=== PATIENT | male | born 1935 | race Caucasian/White ===

== ENCOUNTER → 2018-04-28 | Outpatient (CLI) | payer OTHER ==
[~2018-04-28] MED LIST: AMLO10TA2 PO; BIOFTAB30 PO; LISI20TA3 PO; METO-478 PO; MISCTAB PO; MISCTAB78 PO; PANT1TAB3 PO; UROZINC PO
--- NOTE | 2018-04-28 12:11 | DIAGNOSTIC IMAGING REPORT ---
CHEST 2 VIEWS ROUTINE CLINICAL HISTORY: PRE OP COMPARISON STUDY: 10/28/2011 FINDINGS: The bones soft tissues and hemidiaphragms are normal. The cardiomediastinal silhouette is normal. The lungs are clear. The pulmonary vasculature is normal. IMPRESSION: No acute process. Small hiatal hernia. The above report was generated using voice recognition software. It may contain grammatical, syntax or spelling errors. Electronically signed by: Edouard Hodges M.D. 04/28/2018 12:10 PM Dictated Date/Time: 04/28/2018 12:07 PM
== END | disposition home or self-care (01) ==
LOC: C.CPL 11:12
PROVIDERS: ATTEND Physician Assistant Medical
DX: Z01.810 Encounter for preprocedural cardiovascular examination (principal); Z01.818 Encounter for other preprocedural examination

== ENCOUNTER 2018-05-07 15:49 | Emergency (ER) | payer OTHER ==
[~2018-05-07] VITALS: Ht 185.4 cm; Wt 95.5 kg
[~2018-05-07 15:49] MED LIST changes: -MISCTAB78 PO; -UROZINC PO
[2018-05-07 16:02] VITALS: TEMP 36.4; Ht 185.4 cm; Wt 95.5 kg
--- NOTE | 2018-05-07 16:38 | EMERGENCY ROOM VISIT NOTE ---
History Report prepared by Scottieibe: Adelaide Montgomery Under the Supervision of: Dr. Gera Lai M.D. First contact with patient: 16:12 Chief Complaint: HYPERTENSION Stated Complaint: HIGH BLOOD PRESSURE History of Present Illness The patient is a 83 year old male who presents to the Emergency Room with complaints of persistent hypertension. He states while he was being treated with radiation today, for a history of metastatic esophageal cancer, his BP was found to be elevated around 200, and his doctor referred him here to the ED. The patient takes 3 daily BP medications and denies missing any recent doses. He denies any recent headache, dizziness, shortness of breath or abdominal pain. He denies eating any salty foods recently. 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 A total of 10 systems reviewed and were otherwise negative. Past Medical & Surgical Medical Problems: (1) HTN (hypertension) Social History Smoking Status: Never Smoker Alcohol Use: occasionally Drug Use: none, other Marital Status: Housing Status: lives alone Occupation Status: retired Current/Historical Medications Scheduled Amlodipine Besylate (Norvasc), 10 MG PO QAM Bioflavonoid Products (Bioflex), 3 TAB PO DAILY Lisinopril (Prinivil), 20 MG PO QAM Metoprolol Succinate (Toprol Xl), 25 MG PO BID Misc Natural Products (Complete Prostate Health), 2 TABS PO DAILY Pantoprazole (Protonix), 40 MG PO QAM Allergies Coded Allergies: No Known Allergies (Verified , 05/07/18) Physical Exam Vital Signs Date Time Temp Pulse Resp B/P (MAP) Pulse Ox O2 Delivery O2 Flow Rate FiO2 05/07/18 18:45 68 18 164/87 96 05/07/18 17:32 74 20 93 Room Air 05/07/18 17:30 148/84 05/07/18 17:27 74 20 95 Room Air 05/07/18 17:09 77 05/07/18 17:09 97 Room Air 05/07/18 17:09 97 Room Air 05/07/18 17:06 77 19 159/103 95 Room Air 05/07/18 16:02 36.4 93 20 198/102 93 Room Air Physical Exam GENERAL: Awake, alert, well-appearing, in no acute distress HENT: Normocephalic, atraumatic. Oropharynx unremarkable. EYES: Normal conjunctiva. Sclera non-icteric. NECK: Supple. No nuchal rigidity. FROM. No JVD. RESPIRATORY: Clear to auscultation. CARDIAC: Regular rate, normal rhythm. Extremities warm and well perfused. Pulses equal. ABDOMEN: Soft, non-distended. No tenderness to palpation. No rebound or guarding. No masses. RECTAL: Deferred. MUSCULOSKELETAL: Chest examination reveals no tenderness. The back is symmetrical on inspection without obvious abnormality. There is no CVA tenderness to palpation. No joint edema. LOWER EXTREMITIES: Calves are equal size bilaterally and non-tender. No edema. No discoloration. NEURO: Normal sensorium. No sensory or motor deficits noted. SKIN: No rash or jaundice noted. Medical Decision & Procedures ER Provider Diagnostic Interpretation: Radiology results as stated below per my review and radiologist interpretation: SINGLE VIEW CHEST CLINICAL HISTORY: Hypertension. FINDINGS: 2 AP, portable, upright chest radiographs are compared to study dated 04/28/2018. The examination is degraded by portable technique and patient rotation. The heart is enlarged and there is atherosclerotic calcification of the thoracic aorta. The pulmonary vasculature is noncongested. There is no airspace consolidation or large pleural effusion. No pneumothorax is seen. The skeletal structures are osteopenic. The bony thorax is grossly intact. Degenerative change and scoliosis are noted in the thoracic spine. IMPRESSION: Cardiomegaly with no acute cardiopulmonary abnormality. Electronically signed by: Kimani Parra M.D. 05/07/2018 5:00 PM Laboratory Results 05/07/18 16:45 Red Blood Count 4.82, Mean Corpuscular Volume 86.7, Mean Corpuscular Hemoglobin 28.0, Mean Corpuscular Hemoglobin Concent 32.3, Mean Platelet Volume 8.6, Neutrophils (%) (Auto) 76.2, Lymphocytes (%) (Auto) 15.9, Monocytes (%) (Auto) 7.4, Eosinophils (%) (Auto) 0.2, Basophils (%) (Auto) 0.2, Neutrophils # (Auto) 6.41, Lymphocytes # (Auto) 1.34, Monocytes # (Auto) 0.62, Eosinophils # (Auto) 0.02, Basophils # (Auto) 0.02 05/07/18 16:45 Test 05/07/18 16:45 05/07/18 17:05 White Blood Count 8.42 K/uL (4.8-10.8) Red Blood Count 4.82 M/uL (4.7-6.1) Hemoglobin 13.5 g/dL (14.0-18.0) Hematocrit 41.8 % (42-52) Mean Corpuscular Volume 86.7 fL (80-100) Mean Corpuscular Hemoglobin 28.0 pg (25-34) Mean Corpuscular Hemoglobin Concent 32.3 g/dl (32-36) Platelet Count 245 K/uL (130-400) Mean Platelet Volume 8.6 fL (7.4-10.4) Neutrophils (%) (Auto) 76.2 % Lymphocytes (%) (Auto) 15.9 % Monocytes (%) (Auto) 7.4 % Eosinophils (%) (Auto) 0.2 % Basophils (%) (Auto) 0.2 % Neutrophils # (Auto) 6.41 K/uL (1.4-6.5) Lymphocytes # (Auto) 1.34 K/uL (1.2-3.4) Monocytes # (Auto) 0.62 K/uL (0.11-0.59) Eosinophils # (Auto) 0.02 K/uL (0-0.5) Basophils # (Auto) 0.02 K/uL (0-0.2) RDW Standard Deviation 43.4 fL (36.4-46.3) RDW Coefficient of Variation 13.6 % (11.5-14.5) Immature Granulocyte % (Auto) 0.1 % Immature Granulocyte # (Auto) 0.01 K/uL (0.00-0.02) Prothrombin Time 11.1 SECONDS (9.0-12.0) Prothromb Time International Ratio 1.1 (0.9-1.1) Activated Partial Thromboplast Time 24.3 SECONDS (21.0-31.0) Partial Thromboplastin Ratio 0.9 Anion Gap 9.0 mmol/L (3-11) Est Creatinine Clear Calc Drug Dose 59.0 ml/min Estimated GFR () 71.8 Estimated GFR (Non- 61.9 BUN/Creatinine Ratio 17.5 (10-20) Calcium Level 9.3 mg/dl (8.5-10.1) Total Bilirubin 0.5 mg/dl (0.2-1) Direct Bilirubin 0.2 mg/dl (0-0.2) Aspartate Amino Transf (AST/SGOT) 14 U/L (15-37) Alanine Aminotransferase (ALT/SGPT) 18 U/L (12-78) Alkaline Phosphatase 86 U/L (45-117) Total Creatine Kinase 71 U/L (39-308) Creatine Kinase MB < 1.0 ng/ml (0.5-3.6) Creatine Kinase MB Ratio (0-3.0) Troponin I < 0.015 ng/ml (0-0.045) Total Protein 7.8 gm/dl (6.4-8.2) Albumin 3.9 gm/dl (3.4-5.0) Lipase 162 U/L (73-393) Thyroid Stimulating Hormone (TSH) 0.813 uIu/ml (0.300-4.500) Urine Color DK YELLOW Urine Appearance CLEAR (CLEAR) Urine pH 6.0 (4.5-7.5) Urine Specific [place] 1.019 (1.000-1.030) Urine Protein NEG (NEG) Urine Glucose (UA) NEG (NEG) Urine Ketones TRACE (NEG) Urine Occult Blood NEG (NEG) Urine Nitrite NEG (NEG) Urine Bilirubin NEG (NEG) Urine Urobilinogen NEG (NEG) Urine Leukocyte Esterase TRACE (NEG) Urine WBC (Auto) 1-5 /hpf (0-5) Urine RBC (Auto) 5-10 /hpf (0-4) Urine Hyaline Casts (Auto) 1-5 /lpf (0-5) Urine Epithelial Cells (Auto) 10-20 /lpf (0-5) Urine Bacteria (Auto) NEG (NEG) Labs reviewed by ED physician. 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 The patient was evaluated in room B8. A complete history and physical examination was performed. 174: I reevaluated the patient. He is feeling well and is ready to go home. I discussed his results and discharge instructions and he verbalized complete understanding and agreement. Medical Decision Differential diagnosis: Etiologies such as benign hypertension, hypertensive emergency, cardiovascular pathology, pheochromocytoma, electrolyte abnormality, renal disease, endorgan damage, as well as others were entertained. This is an 83-year-old male who presents emergency department complaining of hypertension. Despite the hypertension the patient has no physical complaints. He denies any dizziness shortness of breath or headache. He has no evidence of meningitis or encephalitis on examination. The patient was given his evening dose of metoprolol here in the emergency department. I will note without doing anything his blood pressure has fallen significantly and I suspect that the patient is anxious over several tests he was having performed both today and tomorrow. Using shared medical decision making with the patient patient does not wish to start any new medications for his blood pressure he will continue to monitor and follow-up with his primary care physician. Patient was in agreement with the treatment plan. Medication Reconcilliation Current Medication List: was personally reviewed by me Blood Pressure Screening Patient's blood pressure: Elevated blood pressure Blood pressure disposition: Referred to PCP Impression Primary Impression: Hypertension Scribe Attestation The scribe's documentation has been prepared under my direction and personally reviewed by me in its entirety. I confirm that the note above accurately reflects all work, treatment, procedures, and medical decision making performed by me. Departure Information Dispostion Home / Self-Care Referrals Mumtaz Loza MD (PCP) Patient Instructions Hypertension Control, Hypertension Dc, My [facility] Additional Instructions Follow up with Dr Loza's office You were found to have an elevated blood pressure today (>120 sytolic or >90 diastolic). Per medicare guidelines, you need to follow up with this blood pressure screening with your Primary Care Physician (PCP). For a new PCP call [phone]. You have been examined and treated today on an emergency basis only. This is not a substitute for, or an effort to provide, complete comprehensive medical care. It is impossible to recognize and treat all injuries or illnesses in a single emergency department visit. It is therefore important that you follow up closely with Dr Loza. Call as soon as possible for an appointment. Thank you for your time and consideration. I look forward to speaking with you again soon. Please don't hesitate to call us if you have any questions. Problem Qualifiers Primary Impression: Hypertension Hypertension type: unspecified Qualified Codes: I10 - Essential (primary) hypertension
[2018-05-07] MEDS ORDERED: METOPROLOL TARTRATE 25 MG TAB PO STA (16:48)
[2018-05-07 17:00] LABS: BASO % 0.2 %; BASO ABS # 0.02 K/uL (0-0.2); EOS % 0.2 %; EOS ABS # 0.02 K/uL (0-0.5); HEMATOCRIT 41.8 % (42-52); HEMOGLOBIN 13.5 g/dL (14.0-18.0); IG# 0.01 K/uL (0.00-0.02); LYMPH % 15.9 %; LYMPH ABS # 1.34 K/uL (1.2-3.4); MEAN CELL VOLUME 86.7 fL (80-100); MEAN CORPUSCULAR HGB CONC 32.3 g/dl (32-36); MEAN PLATELET VOLUME 8.6 fL (7.4-10.4); MONO % 7.4 %; MONO ABS # 0.62 K/uL (0.11-0.59); NEUT % 76.2 %; NEUT ABS # 6.41 K/uL (1.4-6.5); PLATELET COUNT 245 K/uL (130-400); RED CELL DISTRIBUTION WIDTH CV 13.6 % (11.5-14.5); RED CELL DISTRIBUTION WIDTH SD 43.4 fL (36.4-46.3); WHITE BLOOD COUNT 8.42 K/uL (4.8-10.8)
--- NOTE | 2018-05-07 17:01 | DIAGNOSTIC IMAGING REPORT ---
SINGLE VIEW CHEST CLINICAL HISTORY: Hypertension. FINDINGS: 2 AP, portable, upright chest radiographs are compared to study dated 04/28/2018. The examination is degraded by portable technique and patient rotation. The heart is enlarged and there is atherosclerotic calcification of the thoracic aorta. The pulmonary vasculature is noncongested. There is no airspace consolidation or large pleural effusion. No pneumothorax is seen. The skeletal structures are osteopenic. The bony thorax is grossly intact. Degenerative change and scoliosis are noted in the thoracic spine. IMPRESSION: Cardiomegaly with no acute cardiopulmonary abnormality. Electronically signed by: Kimani Parra M.D. 05/07/2018 5:00 PM Dictated Date/Time: 05/07/2018 4:59 PM
[2018-05-07 17:09] VITALS: O2SAT 97
[2018-05-07 17:10] LABS: INR 1.1 (0.9-1.1); PTT PATIENT 24.3 SECONDS (21.0-31.0)
[2018-05-07 17:32] LABS: ALBUMIN 3.9 gm/dl (3.4-5.0); ALKALINE PHOSPHATASE 86 U/L (45-117); ALT/SGPT 18 U/L (12-78); AST/SGOT 14 U/L (15-37); BLOOD UREA NITROGEN 19 mg/dl (7-18); CALCIUM 9.3 mg/dl (8.5-10.1); CARBON DIOXIDE 27 mmol/L (21-32); CKMB < 1.0 ng/ml (0.5-3.6); CREATININE 1.11 mg/dl (0.60-1.40); GLUCOSE 102 mg/dl (70-99); LIPASE 162 U/L (73-393); POTASSIUM 3.7 mmol/L (3.5-5.1); SODIUM 139 mmol/L (136-145); TOTAL PROTEIN 7.8 gm/dl (6.4-8.2)
[2018-05-07 18:45] VITALS: BP 164/87; PULSE 68; O2SAT 96
== END 2018-05-07 18:45 | disposition home or self-care (01) ==
LOC: C.EDB 15:51
DX: I10 Essential (primary) hypertension (principal); Z79.899 Other long term (current) drug therapy

== ENCOUNTER → 2018-05-08 | Day surgery (SDC) | payer OTHER ==
[2018-04-22 14:32] VITALS: Ht 185.4 cm; Wt 94.5 kg
[~2018-05-08] VITALS: Ht 185.4 cm; Wt 94.5 kg
[~2018-05-08] MED LIST changes: +FENTANYL CITRATE INJ 50 MCG/1 ML 2 ML VIAL ONE; +LACTATED RINGER'S 1000ML 1,000 ML IV SCH; +LIDOCAINE HCL 2% 2 ML VIAL (20MG/ML) ONE; +PROPOFOL IV EMULSION 10 MG/ML 20 ML VIAL ONE
== END | disposition home or self-care (01) ==
LOC: C.ACU 07:57
PROVIDERS: ATTEND Internal Medicine
DX: C15.9 Malignant neoplasm of esophagus, unspecified (principal); Z53.9 Procedure and treatment not carried out, unspecified reason

== ENCOUNTER 2019-05-04 14:01 | Inpatient (IN) ==
--- OUTSIDE RECORDS SUMMARY | 2019-05-04 14:03 | External Medical Summary | Continuity of Care Document ---
:1935 Author Name John Michaud, Provider Address Unavailable Unavailable , Care Team Providers Name Role Phone Unavailable Unavailable Unavailable LEONCIO GROVE Unavailable Unavailable Unavailable Unavailable Unavailable Problems Anemia (285.9) (D64.9) Hypertension (401.9) (I10) Feeling weak (780.79) (R53.1) Tachycardia (785.0) (R00.0) Shortness of breath (786.05) (R06.02) Esophageal cancer (150.9) (C15.9) Allergies and Adverse Reactions No Known Drug Allergies (Allergy) Medications Medications not documented Procedures History of Knee Replacement Status: Comp leted Immunizations Immunizations not documented Plan of Treatment Planned Observations Planned Goals not documented Results No Known Results Results not documented
[2019-05-04] MEDS ORDERED: SODIUM CHLORIDE 0.9% 1000ML 1,000 ML IV SCH (14:15)
[2019-05-04 14:56] LABS: Hematocrit (blood only) 35.5 % (42-52); Hemoglobin 11.7 g/dL (14.0-18.0); Mean Corpuscular Volume 86.2 fL (80-100); Platelet Count 140 K/uL (130-400); RDW Coefficient of Variation 14.9 % (11.5-14.5); RDW Standard Deviation 47.8 fL (36.4-46.3); Red Blood Count 4.12 M/uL (4.7-6.1); White Blood Count 8.24 K/uL (4.8-10.8)
[2019-05-04 14:56] LABS: Base Excess VBG 0.3 mEq/L; HCO3 VBG 23 mmol/L; PCO2 VBG 30 mmHg (38-50); PO2 VBG 23 mmHg; pH VBG 7.49 (7.36-7.41)
--- NOTE | 2019-05-04 14:56 | XRay Report ---
XR chest 1V portable CLINICAL HISTORY: 84 years-old Male presenting with weakness. TECHNIQUE: Portable upright AP view of the chest was obtained. COMPARISON: 05/07/2018. FINDINGS: Even allowing for low lung volumes the cardiac silhouette is enlarged. Mild pulmonary vascular promin ence. Dense opacity in the right mid lung. No pleural effusion or pneumothorax. Scoliosis and degene rative changes of the spine. Upper abdomen normal. IMPRESSION: 1. Right mid lung opacity suspected to localize to the anterior segment of the right upper lobe. Fin dings are evidence of pneumonia. This should be followed to resolution to exclude an underlying lesio n. Electronically signed by: Anival Lechuga M.D. 05/04/2019 2:55 PM
[2019-05-04 14:57] LABS: Oxygen Saturation VBG < 60.0 %
[2019-05-04 15:12] LABS: Albumin Level 3.4 gm/dl (3.4-5.0); BUN Creatinine Ratio 21.4 (10-20); Calcium 9.3 mg/dl (8.5-10.1); Creatinine Clr Calc Pharmacy 43.6 ml/min; Est GFR (African American) 48.8; Est GFR (Non-African American) 42.1; Potassium 3.4 mmol/L (3.5-5.1)
--- NOTE | 2019-05-04 15:17 | CT Scan Report ---
HEAD CT NONCONTRAST CT DOSE: 729.78 mGycm HISTORY: confusion TECHNIQUE: Multiaxial CT images of the head were performed without the use of intravenous contrast. A utomated exposure control was utilized for this study. A dose lowering technique was utilized adheri ng to the principles of ALARA. Comparison: None. Findings: Large fluid level within the right maxillary sinus resulting in near complete opacification . There is also a small fluid level within the right sphenoid sinus. The mastoid air cells are clear. The calvarium and skull base are intact. The ventricles and sulci are within normal limits. There is no mass, hematoma, midline shift, or acute infarct. Impression: No acute intracranial abnormality. Acute right paranasal sinusitis as described above. Electronically signed by: Landon Dan M.D. 05/04/2019 3:16 PM
[2019-05-04 15:23] LABS: Albumin Globulin Ratio 0.8 (0.9-2); Bilirubin,Total 0.7 mg/dl (0.2-1); Globulin 4.2 gm/dl (2.5-4.0); Total Protein 7.6 gm/dl (6.4-8.2); Troponin I 0.04 ng/ml (0-0.045)
[2019-05-04] MEDS ORDERED: SODIUM CHLORIDE 0.9% 1000ML 2,000 ML IV ONE (15:28)
[2019-05-04] MEDS ORDERED: cefTRIAXone SODIUM 2,000 MG/70 ML BAG IV STA (15:28)
--- NOTE | 2019-05-04 15:35 | Emergency Department Note ---
Entered by Marcos Phillips acting as a scribe for Alvaro Rodriguez M.D. History of Present Illness General Chief complaint: Confusion Stated complaint: confusion Time Seen by Provider: 05/04/19 14:02 Source: family and EMS History of Present Illness Provider complaint: Confusion Onset (ago): hour(s) (Just prior to arrival) Location: head Radiation: non-radiation Pain Consistency: + constant Relieved By: + none Exacerbated By: + none Associated symptoms: no chest pain and no headaches The patient is an 84 year old male who presents to the Emergency Room with complaints of constant confusion that was noticed today just prior to arrival, per EMS. EMS notes that the patient was found trying to get into the wrong apartment. Per the patient's sister, the patient is normally confused at baseline, however today's confusion is more severe. The patient was seen by his PCP today and per the patient the visit was normal. The patient also mentioned that he is anxious about his sister in [place]. He currently denies any recent falls or pain at this time including any extremity pain, chest pain, headache, or abdominal pain. The patient has a history of throat and bladder cancer. HPI is limited secondary to patient confusion. Home Medications Home Medications Medication Instructions Recorded Confirmed Type Complete Prostate Health 2 tabs PO DAILY 05/04/19 05/04/19 History amlodipine [Norvasc] 10 mg PO DAILY 05/04/19 05/04/19 History lisinopril 20 mg PO DAILY 05/04/19 05/04/19 History metoprolol succinate [Toprol XL] 25 mg PO BID 05/04/19 05/04/19 History pantoprazole [Protonix] 40 mg PO DAILY 05/04/19 05/04/19 History sertraline [Zoloft] 50 mg PO DAILY 05/04/19 05/04/19 History Allergies Allergy/AdvReac Type Severity Reaction Status Date / Time No Known Allergies Allergy Verified 05/04/19 16:05 Past Med/Surg History Medical History HTN (hypertension) (Chronic) 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 Other (Limited secondary to patient confusion) Physical Exam Vital Signs Vital Signs - 24 hr 05/04/19 14:05 05/04/19 14:09 05/04/19 14:31 Temperature 37.5 C Temperature Source Oral Sepsis Recent Fever Within 48 Hours No Sepsis New/Unexplained Change in Mental Status No Sepsis Action Taken by Nursing No Action Required Pulse Rate 90 100 H Pulse Rate from SpO2 Sensor Respiratory Rate 22 16 Blood Pressure 159/69 H 159/69 H Blood Pressure Mean 99 99 Pulse Oximetry 97 97 Oxygen Delivery Method Room Air Room Air 05/04/19 14:34 05/04/19 15:12 05/04/19 15:13 Temperature Temperature Source Sepsis Recent Fever Within 48 Hours Sepsis New/Unexplained Change in Mental Status Sepsis Action Taken by Nursing Pulse Rate 109 H 99 H Pulse Rate from SpO2 Sensor 95 H 107 H Respiratory Rate 22 19 23 Blood Pressure 130/83 Blood Pressure Mean 98 Pulse Oximetry 96 93 Oxygen Delivery Method GENERAL: Awake, alert to person, mildly anxious-appearing HENT: Normocephalic, atraumatic. EYES: Normal conjunctiva. Sclera non-icteric. PERRL. NECK: Supple. No nuchal rigidity. RESPIRATORY: Clear to auscultation. No wheezes. Normal respiratory effort. CARDIAC: Normal rate. Normal rhythm. Extremities warm and well perfused. GI: Soft, non-distended. No tenderness to palpation. No masses. RECTAL: Deferred. MUSCULOSKELETAL: Atraumatic. Chest examination reveals no tenderness. There is no CVA tenderness to palpation. LOWER EXTREMITIES: Calves are equal size bilaterally and non-tender. No edema NEURO: No sensory or motor deficits noted. No facial droop. Pressured speech. 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 Also stated he sleeps with $180mil of diamonds in his couch. SKIN: Warm and dry. No rash or jaundice noted. Course 1405: Past medical records reviewed. The patient was evaluated in room B07, and a complete history and physical examination were performed. I obtained the patient's medical records which showed at today's doctor visit the patient had a cough and fever. He was also anxious about his sister. He was diagnosed with pneumonia and started on Azithromycin. 1525: I reevaluated the patient and he is resting comfortably in bed. I updated him on the lab and imaging results. We also discussed the treatment plan and he is in agreement. 1535: I spoke to [place]ia Kamara PAC under Dr. Héctor Simon about the patient's case. They will be accepting the patie nt for further evaluation. Consultations Consultation #1: I spoke to [place]ia Kamara PAC under Dr. Héctor Simon about the patient's case. They will be accepting the patient for further evaluation. Time: 15:35 Administered Medications Sodium Chloride (Nss 1000ml) 2,000 mls @ 999 mls/hr IV .Q2H1M ONE Stop: 05/04/19 17:28 Last Admin: 05/04/19 16:22 Dose: 999 mls/hr Documented by: [id number] Discontinued Medications Sodium Chloride (Nss 1000ml) 1,000 mls @ 999 mls/hr IV .Q1H1M SAEID Stop: 05/04/19 15:15 Last Infusion: 05/04/19 16:22 Dose: 0 mls/hr Documented by: [id number] Admin: 05/04/19 15:26 Dose: 999 mls/hr Documented by: [id number] Ceftriaxone Sodium (Rocephin) 2,000 mg in 70 mls @ 140 mls/hr IV NOW STA Stop: 05/04/19 15:57 Last Admin: 05/04/19 16:22 Dose: 140 mls/hr Documented by: [id number] Medical Decision Making Differential Diagnosis Differential diagnoses includes but is not limited to toxic, metabolic, infectious, traumatic, cardiac, neurologic, hematologic, psychiatric and inflammatory etiologies. Medical Records Attestation: I reviewed the patient's medical records. Home Medications Current Medication List: was personally reviewed by me Laboratory Data Attestation: I reviewed the patient's lab results. Result diagrams: 05/04/19 14:41 05/04/19 14:41 Lab Results 05/04/19 05/04/19 05/04/19 Range/Units 14:41 14:41 14:41 WBC 8.24 (4.8-10.8) K/uL RBC 4.12 L (4.7-6.1) M/uL Hgb 11.7 L (14.0-18.0) g/dL Hct 35.5 L (42-52) % MCV 86.2 (80-100) fL MCH 28.4 (25-34) pg MCHC 33.0 (32-36) g/dL RDW Std Deviation 47.8 H (36.4-46.3) fL RDW Coeff of [place]re[place] 14.9 H (11.5-14.5) % Plt Count 140 (130-400) K/uL MPV 9.0 (7.4-10.4) fL Immature Gran % (Auto) 0.1 % Neut % (Auto) 84.1 % Lymph % (Auto) 5.2 % [place] % (Auto) 10.6 % Eos % (Auto) 0.0 % Baso % (Auto) 0.0 % Immature Gran # (Auto) 0.01 (0.00-0.02) K/uL Neut # (Auto) 6.93 H (1.4-6.5) K/uL Lymph # (Auto) 0.43 L (1.2-3.4) K/uL [place] # (Auto) 0.87 H (0.11-0.59) K/uL Eos # (Auto) 0.00 (0-0.5) K/uL Baso # (Auto) 0.00 (0-0.2) K/uL VBG pH (7.36-7.41) VBG pCO2 (38-50) mmHg VBG pO2 mmHg VBG HCO3 mmol/L VBG O2 Saturation % VBG Base Excess mEq/L Barometric Pressure mm/Hg Sodium (136-145) mmol/L Potassium (3.5-5.1) mmol/L Chloride (98-107) mmol/L Carbon Dioxide (21-32) mmol/L Anion Gap (3-11) BUN (7-18) mg/dl Creatinine (0.6-1.4) mg/dl Est Cr Clr Drug Dosing ml/min Est GFR ( Amer) Est GFR (Non-Af Amer) BUN/Creatinine Ratio (10-20) Glucose (70-99) mg/dl Lactate 3.0 H* (0.4-2.0) mmol/L Calcium (8.5-10.1) mg/dl Total Bilirubin (0.2-1) mg/dl AST (15-37) U/L ALT (12-78) U/L Alkaline Phosphatase (45-117) U/L Ammonia < 10.0 L (11-32) umol/L Troponin I (0-0.045) ng/ml Total Protein (6.4-8.2) gm/dl Albumin (3.4-5.0) gm/dl Globulin (2.5-4.0) gm/dl Albumin/Globulin Ratio (0.9-2) TSH (0.300-4.500) uIu/ml 05/04/19 05/04/19 Range/Units 14:41 14:42 WBC (4.8-10.8) K/uL RBC (4.7-6.1) M/uL Hgb (14.0-18.0) g/dL Hct (42-52) % MCV (80-100) fL MCH (25-34) pg MCHC (32-36) g/dL RDW Std Deviation (36.4-46.3) fL RDW Coeff of [place]re[place] (11.5-14.5) % Plt Count (130-400) K/uL MPV (7.4-10.4) fL Immature Gran % (Auto) % Neut % (Auto) % Lymph % (Auto) % [place] % (Auto) % Eos % (Auto) % Baso % (Auto) % Immature Gran # (Auto) (0.00-0.02) K/uL Neut # (Auto) (1.4-6.5) K/uL Lymph # (Auto) (1.2-3.4) K/uL [place] # (Auto) (0.11-0.59) K/uL Eos # (Auto) (0-0.5) K/uL Baso # (Auto) (0-0.2) K/uL VBG pH 7.49 H (7.36-7.41) VBG pCO2 30 L (38-50) mmHg VBG pO2 23 mmHg VBG HCO3 23 mmol/L VBG O2 Saturation < 60.0 % VBG Base Excess 0.3 mEq/L Barometric Pressure 727.5 mm/Hg Sodium 134 L (136-145) mmol/L Potassium 3.4 L (3.5-5.1) mmol/L Chloride 100 (98-107) mmol/L Carbon Dioxide 23 (21-32) mmol/L Anion Gap 11.0 (3-11) BUN 33 H (7-18) mg/dl Creatinine 1.52 H (0.6-1.4) mg/dl Est Cr Clr Drug Dosing 43.6 ml/min Est GFR ( Amer) 48.8 Est GFR (Non-Af Amer) 42.1 BUN/Creatinine Ratio 21.4 H (10-20) Glucose 138 H (70-99) mg/dl Lactate (0.4-2.0) mmol/L Calcium 9.3 (8.5-10.1) mg/dl Total Bilirubin 0.7 (0.2-1) mg/dl AST 65 H (15-37) U/L ALT 40 (12-78) U/L Alkaline Phosphatase 79 (45-117) U/L Ammonia (11-32) umol/L Troponin I 0.040 (0-0.045) ng/ml Total Protein 7.6 (6.4-8.2) gm/dl Albumin 3.4 (3.4-5.0) gm/dl Globulin 4.2 H (2.5-4.0) gm/dl Albumin/Globulin Ratio 0.8 L (0.9-2) TSH 0.701 (0.300-4.500) uIu/ml Imaging Data Radiologist's Impression: Radiology results as stated below per my review and the radiologist's interpretation: XR chest 1V portable CLINICAL HISTORY: 84 years-old Male presenting with weakness. TECHNIQUE: Portable upright AP view of the chest was obtained. COMPARISON: 05/07/2018. FINDINGS: Even allowing for low lung volumes the cardiac silhouette is enlarged. Mild pulmonary vascular prominence. Dense opacity in the right mid lung. No pleural effusion or pneumothorax. Scoliosis and degenerative changes of the spine. Upper abdomen normal. IMPRESSION: 1. Right mid lung opacity suspected to localize to the anterior segment of the right upper lobe. Findings are evidence of pneumonia. This should be followed to resolution to exclude an underlying lesion. Electronically signed by: Anival Lechuga M.D. 05/04/2019 2:[address] NONCONTRAST CT DOSE: 729.78 mGycm HISTORY: confusion TECHNIQUE: Multiaxial CT images of the head were performed without the use of intravenous contrast. Automated exposure control was utilized for this study. A dose lowering technique was utilized adhering to the principles of ALARA. Comparison: None. Findings: Large fluid level within the right maxillary sinus resulting in near complete opacification. There is also a small fluid level within the right sphenoid sinus. The mastoid air cells are clear. The calvarium and skull base are intact. The ventricles and sulci are within normal limits. There is no mass, hematoma, midline shift, or acute infarct. Impression: No acute intracranial abnormality. Acute right paranasal sinusitis as described above. Electronically signed by: Landon Dan M.D. 05/04/2019 3:16 PM ECG Data Attestation: I personally reviewed and interpreted this ECG as follows: Indication: altered mental status Rate (beats per minute): 93 Rhythm: sinus with SA Findings: + PAC and + ST depression (Lead 2 and aVF); no PVC and no ST elevation Blood Pressure Blood Pressure Findings: Elevated blood pressure Blood Pressure Disposition: further management by hospitalist ROCK Jones Patient is an 84-year-old gentleman presenting via ambulance today with reports of increasing confusion. Patient has a past medical history UTI, hypertension, Philip's esophagus, as well as Asperger's. Evidently was at the PCPs office this morning. Upon coming back to try to get into a condo unit that was in his and EMS was called. They evidently spoke with his sister via phone and states he is more confused to her today than normal. Patient makes multiple statements that seem grandiose like sleeping with more than $180,000 worth of diamonds on the couch and worldwide travel frequently. Patient knows his name and where he is. Patient is moving all extremities and does not a focal deficits. Denies any complaint of pain or trauma. Office note indicates that he was not feeling so well and thought he might have a cold as well as some cough and fever. Was given azithromycin for possible pneumonia early in laboratory studies appear to still be pending at this time. Did attempt to contact the patient's sister via phone without initial success. Repeat laboratory studies were drawn here as well as a chest x-ray and a CT the head to look for possible explanation for what appears to be some increased confusion today. By way for possible infectious source was metabolic work-up. No involuntary deficits again doubt this represents acute CVA or subarachnoid hemorrhage. CT without acute intercranial abnormality, bleed, or mass notable. EKG here shows believed to be a sinus rhythm but with significant amount of PACs. Questionably some inferior ST depressions in II and aVF but again the patient denies chest pain symptoms. Chest x-ray shows a right midlung opacity in the right upper lobe concerning for pneumonia. There is report of earlier some possible fever and cough do believe this represents pneumonia. This could be contributing factor for his confusion today. Discussed with the patient that given findings and evaluation here I would recommend he stay to monitor for improvement even though is not acutely hypoxic. Does not have acute findings of sepsis at this time and no significant leukocytosis elevation. Negative troponin but detectable. Lactate however is elevated at 3. VBG without significant findings. Ammonia not significantly elevated neither is the TSH. Kidney function appears worse than normal. CT scans shows no acute intracranial pathology although evidence of some right paranasal sinusitis is also noted. Did receive a dose of ceftriaxone and I believe already received azithromycin today. Additionally received IV fluid. Not hypercarbic. Given this discussed with the patient recommendation for admission. He was in agreement. [facility] hospitalist contacted. Impression & Plan Altered mental status, Community acquired pneumonia, JEAN CARLOS (acute kidney injury), Elevated lactic acid level Discharge Plan Visit Data Chief Complaint: Confusion Stated Complaint: confusion ED Provider: Alvaro Rodriguez Discharge Problem: Altered mental status, Community acquired pneumonia, JEAN CARLOS (acute kidney injury), Elevated lactic acid level Patient Disposition: Being Evaluated by Hospitalist Forms Stand Alone Forms: [facility] Run[facility] Prescriptions Prescriptions: No Action lisinopril 20 mg tablet 20 mg PO DAILY RF: 0 amlodipine [Norvasc] 10 mg tablet 10 mg PO DAILY RF: 0 pantoprazole [Protonix] 40 mg tablet,delayed release (DR/EC) 40 mg PO DAILY RF: 0 metoprolol succinate [Toprol XL] 25 mg tablet extended release 24 hr 25 mg PO BID RF: 0 sertraline [Zoloft] 50 mg tablet 50 mg PO DAILY RF: 0 Complete Prostate Health 2 tabs PO DAILY RF: 0 Referrals Referrals: Mumtaz Loza MD [Primary Care Provider] - Discharge Problem: Altered mental status Qualifiers: Altered mental status type: delirium Qualified Code(s): R41.0 - Disorientation, unspecified Community acquired pneumonia Qualifiers: Laterality: right Lung location: upper lobe of lung Qualified Code(s): J18.1 - Lobar pneumonia, unspecified organism The scribe's documentation has been prepared under my direction and personally reviewed by me in its entirety. I confirm that the note above accurately reflects all work, treatment, procedures, and medical decision making performed by me.
[2019-05-04 15:36] LABS: Immature Granulocytes # (auto) 0.01 K/uL (0.00-0.02); Immature Granulocytes % (auto) 0.1 %; Lymphocytes # (auto) 0.43 K/uL (1.2-3.4); Lymphocytes % (auto) 5.2 %; Monocytes # (auto) 0.87 K/uL (0.11-0.59); Monocytes % (auto) 10.6 %; Neutrophils # (auto) 6.93 K/uL (1.4-6.5); Neutrophils % (auto) 84.1 %
--- NOTE | 2019-05-04 16:54 | History & Physical Report ---
Date of Service May 04, 2019 Assessment & Plan (1) Community acquired pneumonia: (2) Elevated lactic acid level: Pt presented to ER with confusion, was found trying to get into apartment that was not his. Pt was seen by PCP this morning for routine appointment and had reported cough and CXR was obtained out patient. In ER pt afebrile, P: 90-99, R: 22, BP: 159/69, 94-97% on RA. WBC: 8, H/H: 11.7/33.5 (baseline Hgb: 13-14), Na: 134, Lactate: 3.0 CXR: right mid lung infiltrate CT HEAD: No acute intracranial abnormality. Acute right paranasal sinusitis. Meets SIRS criteria -In ER given Rocephin 2Gm IV, 2L NSS -Pending blood cultures -MRSA screen -Trend lactate -Zosyn -Duoneb -Aspiration precautions -CBC, BMP in am (3) Metabolic encephalopathy: Acute confusion Pneumonia. R/O UTI CT head: No acute intracranial abnormality -Neuro checks -pending UA (4) JEAN CARLOS (acute kidney injury): Cr: 1.5. 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 Spoke with pt's sister - Yvette who wishes Full code Pt's sister -Yvette Bingham would like update. . (she lives in [place]) Follows with Dr Loza for routine care Pt was seen and care coordinated with Dr Anaya. See addendum History of Present Illness Chief Complaint: Confusion Primary Care Provider: Mumtaz Loza MD Pt is 84 y/o M with PMH,HTN, GERD, anxiety Philip's esophagus, h/o esophageal cancer S/P chemo and radiation, presented to ER for confusion.History obtained from outpatient records, limited history obtained from patient secondary to his confusion. Patient was seen at PCPs office this morning and had reported cough for couple of days. Today he had chest x-ray in clinic concerning for pneumonia to right lung and clinic has been trying to get in contact with pt to inform of results and that Rx was sent to pharmacy. Patient was brought to ER as he was found trying to get into an apartment that was not his. Upon ER arrival patient was noted to be confused otherwise is in no acute distress.Currently patient is denying any complaints and denies any shortness of breath chest pain. He reports at this time that he thinks he has had a cough for approximately 20 minutes. Pt alert to person and states that he used to work for [employer] and reports that he has traveled to [place]. Pt easily distracted and talks off subject. Was able to speak with patient's Sister Yvette who resides in [place]. She states that talked to pt this morning when police were with him and that he was very confused. She just talked to him on the phone while he was in ER and states pt more oriented when she talked to him and seems like he is aware of himself now and that he was not earlier. Pt's sister confirms that pt is retired and worked for [employer]. She reports pt without dx dementia and has no history of confusion in the past. Does report pt with hx UTI in past. Further ROS unattainable at this time secondary to pt's confusion. Allergies Allergy/AdvReac Type Severity Reaction Status Date / Time No Known Allergies Allergy Verified 05/04/19 16:05 Home Medications Home Medications Medication Instructions Recorded Confirmed Type Complete Prostate Health 2 tabs PO DAILY 05/04/19 05/04/19 History amlodipine [Norvasc] 10 mg PO DAILY 05/04/19 05/04/19 History lisinopril 20 mg PO DAILY 05/04/19 05/04/19 History metoprolol succinate [Toprol XL] 25 mg PO BID 05/04/19 05/04/19 History pantoprazole [Protonix] 40 mg PO DAILY 05/04/19 05/04/19 History sertraline [Zoloft] 50 mg PO DAILY 05/04/19 05/04/19 History Past Med/Surg History Medical History Anxiety (Chronic) Barretts esophagus (Chronic) HTN (hypertension) (Chronic) 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 March 18, 2018 Adenocarcinoma Status post PET/CT March 14, 2018 FDG avidity in the distal esophagus Plan for EUS May 08, 2018" Surgical History History of arthroplasty of knee (Chronic) History of cystoscopy (Chronic) History of cataract surgery (Chronic) Family History Other Hypertension Stroke Social History Current Living Situation: Alone Feels Safe at Home: Yes Smoking Status: Never smoker Hx Alcohol Use: No Hx Substance Use: No Review of Systems Review of Systems: Unobtainable due to cognitive status Physical Exam Physical Exam: General: no acute distress, however anxious WDWN Head: normocephalic, atraumatic Eyes: PERRL, EOM's intact, conjunctiva non-injected, anicteric ENT: normal inspection external ears, nose, pharynx without edema or erythema, mucous membranes moist Neck: supple, trachea midline Lungs: no respiratory distress, diminished right lung, otherwise clear CV: RRR, no murmur, no JVD, no pretibial edema; chest: scar noted to right upper chest Abd: normal BS, soft, non-tender Ext: no cyanosis, no calf tenderness Neuro: Alert, oriented to person, easily distracted and talks off subject, anxious appearing Skin: warm, dry Results & Data Vital Signs (Past 12 Hours) Vital Signs Temp Pulse Resp BP Pulse Ox 05/04/19 15:13 99 H 23 93 05/04/19 15:12 19 130/83 96 05/04/19 14:34 109 H 22 05/04/19 14:31 97 05/04/19 14:09 37.5 C 100 H 16 159/69 H 97 05/04/19 14:05 90 22 159/69 H Laboratory Results Short CBC 05/04/19 Range/Units 14:41 WBC 8.24 (4.8-10.8) K/uL Hgb 11.7 L (14.0-18.0) g/dL Hct 35.5 L (42-52) % Plt Count 140 (130-400) K/uL BMP 05/04/19 14:41 Sodium 134 L Potassium 3.4 L Chloride 100 Carbon Dioxide 23 BUN 33 H Creatinine 1.52 H Glucose 138 H Calcium 9.3 Cardiac Enzymes 05/04/19 Range/Units 14:41 Troponin I 0.040 (0-0.045) ng/ml Liver Function 05/04/19 Range/Units 14:41 Total Bilirubin 0.7 (0.2-1) mg/dl AST 65 H (15-37) U/L ALT 40 (12-78) U/L Alkaline Phosphatase 79 (45-117) U/L Albumin 3.4 (3.4-5.0) gm/dl Diagnostic Findings CXR: IMPRESSION: 1. Right mid lung opacity suspected to localize to the anterior segment of the right upper lobe. Findings are evidence of pneumonia. This should be followed to resolution to exclude an underlying lesion. CT HEAD: Impression: No acute intracranial abnormality. Acute right paranasal sinusitis as described above. Supervising Physician Co-Signing Physician Notes Patient is an 84 yr male with history of esophageal cancer, hypertension and other problems presents with confusion. Patient was seen by his PCP today and was diagnosed to have pneumonia. History is unreliable because of patient's mental status. He admits to having cough. He denies any chest pain, shortness of breath. CT had suggestive of acute right paranasal sinusitis. Chest x-ray suggestive of right midlung infiltrate. Lactate elevated at 3.0. Labs also suggestive of JEAN CARLOS creatinine elevated at 1.5. On exam patient is moderately built and nourished, no apparent distress, normocephalic atraumatic, lungs are clear to auscultation, decreased breath sounds on right side, S1-S2, no murmur, no pedal edema, abdomen soft nontender, grossly nonfocal neurological deficits. Patient is admitted for management of acute metabolic encephalopathy, sepsis secondary to community-acquired pneumonia. We will give IV fluids, IV Zosyn. Check MRSA screen. Blood cultures obtained. Aspiration precautions. Continue neuro checks. UA currently pending. Monitor renal function, hold lisinopril for now. Replace potassium supplements. I personally reviewed the record. Patient is interviewed and examined at bedside. Patient's care is coordinated with Albania Johnson PA-C. Please refer to the documentation above for details of patient's presentation and for discussion of other issues. (1) Community acquired pneumonia Laterality: right Lung location: upper lobe of lung Qualified Code(s): J18.1 - Lobar pneumonia, unspecified organism
[2019-05-04] MEDS ORDERED: POTASSIUM CHLORIDE 20 MEQ TABCR PO STA (17:54)
[2019-05-04] MEDS ORDERED: ACETAMINOPHEN 325 MG TAB PO PRN (17:54)
[2019-05-04] MEDS ORDERED: AZITHROMYCIN 250 MG TAB PO ONE (17:54)
[2019-05-04] MEDS ORDERED: PIPERACILL/TAZOBAC CONSULT ACTIVE PRN (18:00)
[2019-05-04 18:10] LABS: Magnesium 2.1 mg/dl (1.8-2.4)
[2019-05-04] MEDS ORDERED: PIPERACILLIN/TAZOBACTAM 3.375 GM in DEXTROSE 5% 100 ML IV ONE (18:15)
[2019-05-04] MEDS: SODIUM CHLORIDE 0.9% 1000ML 1,000 ML IV SCH (18:19)
[2019-05-04 18:41] LABS: INR 1.3 (0.9-1.1); Prothrombin Time 12.7 Seconds (9.0-12.0)
[2019-05-04] MEDS: ALBUT/IPRATROP 3MG/0.5MG NEB 3 ML VIAL NEB SCH (19:24)
[2019-05-04 20:28] LABS: Appearance Urine Clear (Clear); Bacteria Urine Automated Negative (Negative); Bilirubin Urine Negative (Negative); Blood Urine 3+ (Negative); Color Urine Dark Yellow; Glucose Urine UA Negative (Negative); Ketones Urine Trace (Negative); Leukocyte Esterase Urine Negative (Negative); Nitrite Urine Negative (Negative); Protein Urine 2+ (Negative); Specific Gravity Urine 1.022 (1.000-1.030); Urobilinogen Urine Negative (Negative); pH Urine 5.5 (4.5-7.5)
[2019-05-04 20:45] LABS: Amphetamines+Metham, Urine Neg (Neg); Barbiturates, Urine Neg (Neg); Benzodiazepine, Urine Neg (Neg); Cocaine, Urine Neg (Neg); MDMA (Ecstacy), Urine Neg (Neg); Methadone, Urine Neg (Neg); Opiate, Urine Neg (Neg); Phencyclidine, Urine Neg (Neg)
[2019-05-04] MEDS: HEPARIN SOD 5,000 UNIT/0.5 ML VIAL SQ SCH (21:17)
[2019-05-04] MEDS: METOPROLOL SUCC 25MG EXT REL TAB PO SCH (21:17)
[2019-05-04] MEDS: PIPERACILLIN/TAZOBACTAM 3.375 GM in DEXTROSE 5% 100 ML IV SCH (23:20)
[2019-05-05] MEDS: HEPARIN SOD 5,000 UNIT/0.5 ML VIAL SQ SCH ×3 (06:11→20:36)
[2019-05-05 06:28] LABS: Hematocrit (blood only) 30.2 % (42-52); Immature Granulocytes # (auto) 0.01 K/uL (0.00-0.02); Immature Granulocytes % (auto) 0.2 %; Lymphocytes # (auto) 0.64 K/uL (1.2-3.4); Lymphocytes % (auto) 9.8 %; Mean Corpuscular Hgb Conc 33.1 g/dL (32-36); Mean Corpuscular Volume 87.5 fL (80-100); Monocytes # (auto) 0.73 K/uL (0.11-0.59); Monocytes % (auto) 11.2 %; Neutrophils # (auto) 5.13 K/uL (1.4-6.5); Neutrophils % (auto) 78.8 %; Platelet Count 122 K/uL (130-400); RDW Coefficient of Variation 15.1 % (11.5-14.5); RDW Standard Deviation 48.6 fL (36.4-46.3); Red Blood Count 3.45 M/uL (4.7-6.1); White Blood Count 6.51 K/uL (4.8-10.8)
[2019-05-05] MEDS: ALBUT/IPRATROP 3MG/0.5MG NEB 3 ML VIAL NEB SCH ×4 (06:55→19:01)
[2019-05-05 06:56] LABS: BUN Creatinine Ratio 25.1 (10-20); Calcium 8.1 mg/dl (8.5-10.1); Creatinine Clr Calc Pharmacy 60.7 ml/min; Est GFR (African American) 72.9; Est GFR (Non-African American) 62.9; Magnesium 1.8 mg/dl (1.8-2.4); Potassium 3.5 mmol/L (3.5-5.1)
[2019-05-05] MEDS: SODIUM CHLORIDE 0.9% 1000ML 1,000 ML IV SCH (07:17)
[2019-05-05] MEDS: PIPERACILLIN/TAZOBACTAM 3.375 GM in DEXTROSE 5% 100 ML IV SCH ×2 (07:18→17:37)
[2019-05-05] MEDS: METOPROLOL SUCC 25MG EXT REL TAB PO SCH ×2 (07:18→20:38)
[2019-05-05] MEDS: SERTRALINE HCL 50 MG TABLET PO SCH (07:18)
[2019-05-05] MEDS: PANTOprazole 40 MG TAB PO SCH (07:18)
[2019-05-05] MEDS: AMLODIPINE BESYLATE 5 MG TAB PO SCH (07:18)
--- NOTE | 2019-05-05 09:17 | Hospitalist Progress Note ---
Date of Service May 05, 2019 Assessment & Plan (1) Community acquired pneumonia: Right midlung opacity suspected of pneumonia Has been on intravenous Zosyn Received 1 dose of azithromycin for atypical coverage Will start doxycycline and continue Zosyn for now White cell count has been improving (2) Elevated lactic acid level: Meets SIRS criteria for but does not have any sepsis CXR: right mid lung infiltrate CT HEAD: No acute intracranial abnormality. Acute right paranasal sinusitis. Repeat lactate improved to 2.3 from 2.6 Await blood culture (3) Metabolic encephalopathy: Acute confusion Likely secondary to acute sinusitis and pneumonia. Doubt any UTI CT head: No acute intracranial abnormality No change in acute confusion Will observe (4) JEAN CARLOS (acute kidney injury): Cr: 1.5. 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 Spoke with pt's sister - Yevtte who wishes Full code Pt's sister -Yvette Bingham would like update. . (she lives in [place]) Follows with Dr Loza for routine care (10) Acute maxillary antritis: Noted to have right-sided paranasal sinus opacity Zosyn plus doxy will cover appropriately Subjective 05/05 The patient was seen and examined in medical telemetry unit He remains confused Does not have any acute distress and denies any chest pain and/or shortness of breath, no abdominal pain nausea and or vomiting Did not have any fever and/or chills Review of Systems Review of Systems: All systems reviewed and are unremarkable except as noted below Neurologic: + confusion (Remains acutely confused) Physical Exam Physical Exam: No apparent distress but acutely confused Constitutional: well developed, well nourished and + ill appearing Eyes: PERRL, conjunctivae normal, anicteric sclerae ENMT: external ear and nose normal, oropharynx normal Neck: trachea midline, no thyromegaly Respiratory: normal respiratory effort; no respiratory distress Auscultation: lungs clear to auscultation bilaterally Cardiovascular: Rate/Rhythm: regular rate and regular rhythm Heart Sounds: no murmur Gastrointestinal (Abdomen): Inspection/Auscultation: abdomen normal to inspection and normal bowel sounds Percussion/Palpation: abdomen soft Neurologic: moves all extremities Results & Data Vital Signs (Past 12 Hours) Vital Signs Temp Pulse Pulse Resp BP BP Pulse Ox 05/05/19 06:58 90 20 90 05/05/19 06:57 36.8 C 91 H 20 123/62 92 05/05/19 04:00 37.3 C 99 H 20 127/76 91 05/05/19 00:45 91 H 05/04/19 23:12 36.7 C 102 H 20 136/60 94 05/04/19 22:37 113 H Laboratory Results Short CBC 05/04/19 05/05/19 Range/Units 14:41 06:00 WBC 8.24 6.51 (4.8-10.8) K/uL Hgb 11.7 L 10.0 L (14.0-18.0) g/dL Hct 35.5 L 30.2 L (42-52) % Plt Count 140 122 L (130-400) K/uL BMP 05/04/19 05/05/19 14:41 06:00 Sodium 134 L 138 Potassium 3.4 L 3.5 Chloride 100 109 H Carbon Dioxide 23 23 BUN 33 H 27 H Creatinine 1.52 H 1.09 Glucose 138 H 90 Calcium 9.3 8.1 L Cardiac Enzymes 05/04/19 Range/Units 14:41 Troponin I 0.040 (0-0.045) ng/ml Liver Function 05/04/19 Range/Units 14:41 Total Bilirubin 0.7 (0.2-1) mg/dl AST 65 H (15-37) U/L ALT 40 (12-78) U/L Alkaline Phosphatase 79 (45-117) U/L Albumin 3.4 (3.4-5.0) gm/dl Urine 05/04/19 Range/Units 20:15 Urine Color Dark Yellow Urine Appearance Clear (Clear) Urine pH 5.5 (4.5-7.5) Ur Specific [place] 1.022 (1.000-1.030) Urine Protein 2+ H (Negative) Urine Glucose (UA) Negative (Negative) Medications Administered Current Inpatient Medications Acetaminophen (Tylenol) 650 mg PO Q4H PRN PRN Reason: Pain or Fever Stop: 06/03/19 17:53 Albuterol (Duoneb) 3 ml NEB QIDR [facility] Stop: 06/03/19 19:59 Last Admin: 05/05/19 11:16 Dose: 3 ml Documented by: Amlodipine Besylate (Norvasc) 10 mg PO DAILY [facility] Stop: 06/04/19 08:59 Last Admin: 05/05/19 07:18 Dose: 10 mg Documented by: Heparin Sodium (Porcine) (Heparin Sodium (Porcine)) 5,000 units SQ Q8 [facility] Stop: 06/03/19 21:59 Last Admin: 05/05/19 06:11 Dose: 5,000 units Documented by: Sodium Chloride (Nss 1000ml) 1,000 mls @ 80 mls/hr IV .[id number] [facility] Stop: 05/05/19 18:59 Last Admin: 05/05/19 07:17 Dose: 80 mls/hr Documented by: Piperacillin Sod/Tazobactam (Sod 3.375 gm/ Dextrose) 115 mls @ 28.75 mls/hr IV Q8H [facility]; Protocol Stop: 05/11/19 00:00 Last Infusion: 05/05/19 11:40 Dose: Infused Documented by: Metoprolol Succinate (Toprol Xl) 25 mg PO BID [facility] Stop: 06/03/19 20:59 Last Admin: 05/05/19 07:18 Dose: 25 mg Documented by: Miscellaneous Information (Consult) 1 ea N/A UD PRN PRN Reason: Consult Stop: 06/03/19 17:59 Pantoprazole Sodium (Protonix) 40 mg PO DAILY [facility] Stop: 06/04/19 08:59 Last Admin: 05/05/19 07:18 Dose: 40 mg Documented by: Sertraline HCl (Zoloft) 50 mg PO DAILY [facility] Stop: 06/04/19 08:59 Last Admin: 05/05/19 07:18 Dose: 50 mg Documented by: (1) Community acquired pneumonia Laterality: right Lung location: upper lobe of lung Qualified Code(s): J18.1 - Lobar pneumonia, unspecified organism
[2019-05-05] MEDS ORDERED: LOPERAMIDE HCL 2 MG CAP PO STA (22:54)
[2019-05-06] MEDS: PIPERACILLIN/TAZOBACTAM 3.375 GM in DEXTROSE 5% 100 ML IV SCH ×4 (00:04→23:45)
[2019-05-06] MEDS ORDERED: ALBUT/IPRATROP 3MG/0.5MG NEB 3 ML VIAL NEB PRN (05:54)
[2019-05-06] MEDS ORDERED: methylPREDNISolone 125 MG/2 ML VIAL IV STA (05:55)
[2019-05-06] MEDS ORDERED: ALBUT/IPRATROP 3MG/0.5MG NEB 3 ML VIAL NEB STA (05:59)
[2019-05-06] MEDS ORDERED: ACETAMINOPHEN 65 ML IV PRN (06:00)
[2019-05-06] MEDS ORDERED: methylPREDNISolone 60 MG in SYRINGE 0 ML IV ONE (06:15)
[2019-05-06] MEDS: HEPARIN SOD 5,000 UNIT/0.5 ML VIAL SQ SCH ×3 (06:57→21:01)
--- NOTE | 2019-05-06 07:12 | XRay Report ---
XR chest 1V portable CLINICAL HISTORY: Shortness of breath. COMPARISON STUDY: Chest radiograph May 04, 2019. FINDINGS: Dense right upper lobe consolidation has progressed. Right lower lung consolidation has als o progressed. There is mild left basilar opacity. There is no pneumothorax or pleural effusion. No ca vitation is identified. Cardiomediastinal silhouette is stable. Scoliosis of the thoracolumbar spine is incidentally noted. IMPRESSION: Progression of dense right upper lobe consolidation and right basilar consolidation which suggests mu ltifocal pneumonia. Mild left lower lung airspace opacity. Radiographic follow-up to ensure resolutio n is recommended. Electronically signed by: Roberto Carlos Ji M.D. 05/06/2019 7:10 AM
[2019-05-06] MEDS: ALBUT/IPRATROP 3MG/0.5MG NEB 3 ML VIAL NEB SCH ×4 (07:17→19:19)
[2019-05-06 07:32] LABS: Albumin Level 2.4 gm/dl (3.4-5.0); Calcium 8.1 mg/dl (8.5-10.1); Creatinine Clr Calc Pharmacy 71.2 ml/min; Est GFR (African American) 88.3; Est GFR (Non-African American) 76.2; Magnesium 2.1 mg/dl (1.8-2.4); Potassium 3.2 mmol/L (3.5-5.1)
[2019-05-06] MEDS: AMLODIPINE BESYLATE 5 MG TAB PO SCH (07:39)
[2019-05-06] MEDS: METOPROLOL SUCC 25MG EXT REL TAB PO SCH ×2 (07:39→21:01)
[2019-05-06] MEDS: SERTRALINE HCL 50 MG TABLET PO SCH (07:39)
[2019-05-06] MEDS: PANTOprazole 40 MG TAB PO SCH (07:40)
[2019-05-06 07:48] LABS: Albumin Globulin Ratio 0.7 (0.9-2); Bilirubin,Total 0.6 mg/dl (0.2-1); Globulin 3.4 gm/dl (2.5-4.0); Hematocrit (blood only) 28.9 % (42-52); Hemoglobin 9.6 g/dL (14.0-18.0); Immature Granulocytes # (auto) 0.01 K/uL (0.00-0.02); Immature Granulocytes % (auto) 0.2 %; Lymphocytes # (auto) 0.59 K/uL (1.2-3.4); Lymphocytes % (auto) 10.6 %; Mean Corpuscular Hgb Conc 33.2 g/dL (32-36); Mean Corpuscular Volume 87.6 fL (80-100); Mean Platelet Volume 9.1 fL (7.4-10.4); Monocytes # (auto) 0.44 K/uL (0.11-0.59); Monocytes % (auto) 7.9 %; Neutrophils # (auto) 4.51 K/uL (1.4-6.5); Neutrophils % (auto) 81.3 %; Phosphorus 2.1 mg/dl (2.5-4.9); Platelet Count 129 K/uL (130-400); RDW Coefficient of Variation 15.1 % (11.5-14.5); RDW Standard Deviation 48.8 fL (36.4-46.3); Total Protein 5.8 gm/dl (6.4-8.2); White Blood Count 5.55 K/uL (4.8-10.8)
[2019-05-06] MEDS ORDERED: VANCOMYCIN CONSULT ACTIVE PRN (08:21)
[2019-05-06] MEDS ORDERED: VANCOMYCIN HCL 1,000 MG/270 ML BAG IV STA (08:21)
[2019-05-06] MEDS ORDERED: VANCOMYCIN HCL 2,000 MG in SODIUM CHLORIDE 0.9% 500 ML IV ONE (09:00)
[2019-05-06] MEDS ORDERED: POTASSIUM CHLORIDE 20 MEQ TABCR PO STA (09:20)
--- NOTE | 2019-05-06 09:29 | Pharmacy Report ---
Pharmacy Abx Initial Consult - Date of Service May 06, 2019 - Pharmacy Dosing Scope Date of Consult: 05/06/19 Consultation requested by: Dr. Hawkins Pharmacy is consulted to initiate Vancomycin IV dosing therapy, order appropriate labs and adjust drug dose/frequency. - Subjective The patient is a 84 year old M admitted on 05/04/19 16:27 with CAP on IV Zosyn, MRSA nasal swab negative, but CXR has worsened and pt febrile today. Starting IV Vancomycin. - Objective Height: 6 ft 2 in Weight: 90.7 kg Vital Signs (Past 12hrs): Vital Signs Temp Pulse Pulse Resp BP BP Pulse Ox 05/06/19 07:19 81 18 95 05/06/19 07:03 36.8 C 84 20 119/65 98 05/06/19 06:35 24 99 05/06/19 05:45 39.4 C H 88 44 H 127/69 75 L 05/06/19 00:54 87 05/05/19 22:20 36.7 C 84 20 122/65 92 Lab Results (24hrs): Laboratory Tests (24 Hours) 05/06/19 05/06/19 05/05/19 06:49 06:49 06:00 WBC 5.55 RBC 3.30 L 3.45 L Hgb 9.6 L 10.0 L Hct 28.9 L 30.2 L MCV 87.6 87.5 MCH 29.1 29.0 MCHC 33.2 33.1 RDW Std Deviation 48.8 H 48.6 H RDW Coeff of [place] 15.1 H 15.1 H Plt Count 129 L 122 L MPV 9.1 9.0 Immature Gran % (Auto) 0.2 0.2 Neut % (Auto) 81.3 78.8 Lymph % (Auto) 10.6 9.8 [place] % (Auto) 7.9 11.2 Eos % (Auto) 0.0 0.0 Baso % (Auto) 0.0 0.0 Immature Gran # (Auto) 0.01 0.01 Neut # (Auto) 4.51 Lymph # (Auto) 0.59 L 0.64 L [place] # (Auto) 0.44 0.73 H Eos # (Auto) 0.00 0.00 Baso # (Auto) 0.00 0.00 PT INR VBG pH VBG pCO2 VBG pO2 VBG HCO3 VBG O2 Saturation VBG Base Excess Barometric Pressure Creatinine 0.93 Est Cr Clr Drug Dosing 71.2 Urine Color Urine Appearance Urine pH Ur Specific [place] Urine Protein Urine Glucose (UA) Urine Ketones Urine Blood Urine Nitrite Urine Bilirubin Urine Urobilinogen Ur Leukocyte Esterase Urine WBC (Auto) Urine RBC (Auto) U Hyaline Cast (Auto) U Epithel Cells (Auto) Urine Bacteria (Auto) 05/04/19 05/04/19 05/04/19 20:15 18:17 14:42 WBC RBC Hgb Hct MCV MCH MCHC RDW Std Deviation RDW Coeff of [place] Plt Count MPV Immature Gran % (Auto) Neut % (Auto) Lymph % (Auto) [place] % (Auto) Eos % (Auto) Baso % (Auto) Immature Gran # (Auto) Neut # (Auto) Lymph # (Auto) [place] # (Auto) Eos # (Auto) Baso # (Auto) PT 12.7 H INR 1.3 H VBG pH 7.49 H VBG pCO2 30 L VBG pO2 23 VBG HCO3 23 VBG O2 Saturation < 60.0 VBG Base Excess 0.3 Barometric Pressure 727.5 Creatinine Est Cr Clr Drug Dosing Urine Color Dark Yellow Urine Appearance Clear Urine pH 5.5 Ur Specific [place] 1.022 Urine Protein 2+ H Urine Glucose (UA) Negative Urine Ketones Trace H Urine Blood 3+ H Urine Nitrite Negative Urine Bilirubin Negative Urine Urobilinogen Negative Ur Leukocyte Esterase Negative Urine WBC (Auto) 1-5 Urine RBC (Auto) 10-30 H U Hyaline Cast (Auto) 1-5 U Epithel Cells (Auto) 10-20 H Urine Bacteria (Auto) Negative 05/04/19 14:41 WBC RBC 4.12 L Hgb 11.7 L Hct 35.5 L MCV 86.2 MCH 28.4 MCHC 33.0 RDW Std Deviation 47.8 H RDW Coeff of [place] 14.9 H Plt Count 140 MPV 9.0 Immature Gran % (Auto) 0.1 Neut % (Auto) 84.1 Lymph % (Auto) 5.2 [place] % (Auto) 10.6 Eos % (Auto) 0.0 Baso % (Auto) 0.0 Immature Gran # (Auto) 0.01 Neut # (Auto) Lymph # (Auto) 0.43 L [place] # (Auto) 0.87 H Eos # (Auto) 0.00 Baso # (Auto) 0.00 PT INR VBG pH VBG pCO2 VBG pO2 VBG HCO3 VBG O2 Saturation VBG Base Excess Barometric Pressure Creatinine Est Cr Clr Drug Dosing Urine Color Urine Appearance Urine pH Ur Specific [place] Urine Protein Urine Glucose (UA) Urine Ketones Urine Blood Urine Nitrite Urine Bilirubin Urine Urobilinogen Ur Leukocyte Esterase Urine WBC (Auto) Urine RBC (Auto) U Hyaline Cast (Auto) U Epithel Cells (Auto) Urine Bacteria (Auto) - Assessment & Plan Assessment 84 year old M admitted with CAP on IV zosyn since 05/04, pneumonia worsening CXR, pt febrile. Starting IV Vancomycin. MRSA nasal swab is negative. Plan IV Vancomycin and Zosyn for treatment of CAP Vancomycin IV * Estimated PK Parameters: Vd 0.7 L/kg, Leon 0.06hr-1, t1/2 11.6hr * Loading dose: 2000 mg (22.2 mg/kg) * Maintenance dose: 1250 mg IV (13.9 mg/kg) every 12 hours * Goal trough level for pneumonia : 15 to 20 mcg/mL * Trough level ordered for 05/07/19 prior to 2000 dose Piperacillin/tazobactam * Day 3 * 3.375 g bolus administered over 30 minutes x1, then 3.375 g IV extended infusion every 8 hours for CrCl greater than 20 mL/min Pharmacy will continue to follow and will adjust dose/frequency as necessary. Thank you.
--- NOTE | 2019-05-06 11:07 | Hospitalist Progress Note ---
Date of Service May 06, 2019 Assessment & Plan (1) Community acquired pneumonia: Right midlung opacity suspected of pneumonia Has been on intravenous Zosyn Received 1 dose of azithromycin for atypical coverage Will start doxycycline and continue Zosyn for now Doxycycline was not started yesterday on 05/05 He has had fever last night Will start vancomycin for broader coverage for the pneumonia We will check MRSA screen (2) Metabolic encephalopathy: Acute confusion Likely secondary to acute sinusitis and pneumonia. Doubt any UTI CT head: No acute intracranial abnormality No change in acute confusio No change of his acute confusion (3) Dysphasia: Seems to have dysarthria/dysphasia Questionable stuttering speech Does not have any other neurological deficit No photophobia and no neck stiffness Will take advice from neurologist for further management of this problem Speech evaluation has been requested (4) Elevated lactic acid level: Meets SIRS criteria for but does not have any sepsis CXR: right mid lung infiltrate CT HEAD: No acute intracranial abnormality. Acute right paranasal sinusitis. Repeat lactate improved to 2.3 from 2.6 Await blood culture-negative (5) JEAN CARLOS (acute kidney injury): Cr: 1.5. 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 Spoke with pt's sister - Yvette who wishes Full code Pt's sister -Yvette Bingham would like update. . (she lives in [place]) Follows with Dr Loza for routine care (11) Acute maxillary antritis: Noted to have right-sided paranasal sinus opacity Zosyn plus doxy will cover appropriately-Doxy was not started He will get vancomycin from today-empiric coverage for about 48 hours Subjective 05/05 The patient was seen and examined in medical telemetry unit He remains confused Does not have any acute distress and denies any chest pain and/or shortness of breath, no abdominal pain nausea and or vomiting Did not have any fever and/or chills 05/06 The patient was seen and examined in medical floor He remains confused but seems to be a little bit better compared with yesterday He has significant dysphasia in the form of stuttering but denies any focal neurological deficit He was noted to have a high fever last night Denies any chest pain, any cough, palpitation, abdominal pain, nausea no vomiting, headache, blurred vision, or any weakness involving any side Review of Systems Review of Systems: All systems reviewed and are unremarkable except as noted below Constitutional: + weakness and + daytime sleepiness Respiratory: no cough and no dyspnea Gastrointestinal: no abdominal pain Musculoskeletal: No acute arthritis in any joints Neurologic: + abnormal speech (Has dysphagia in the form of stuttering speech, no headache and or photophobia and no neck stiffness) and + confusion (Remains acutely confused) Physical Exam Constitutional: well developed, well nourished and + ill appearing Eyes: PERRL, conjunctivae normal, anicteric sclerae ENMT: external ear and nose normal, oropharynx normal Neck: trachea midline, no thyromegaly Respiratory: normal respiratory effort; no respiratory distress Auscultation: lungs clear to auscultation bilaterally Cardiovascular: Rate/Rhythm: regular rate and regular rhythm Heart Sounds: no murmur Gastrointestinal (Abdomen): Inspection/Auscultation: abdomen normal to inspection and normal bowel sounds Percussion/Palpation: abdomen soft Neurologic: moves all extremities Results & Data Vital Signs (Past 12 Hours) Vital Signs Temp Pulse Pulse Resp BP BP Pulse Ox 05/06/19 07:19 81 18 95 05/06/19 07:03 36.8 C 84 20 119/65 98 05/06/19 06:35 24 99 05/06/19 05:45 39.4 C H 88 44 H 127/69 75 L 05/06/19 00:54 87 Laboratory Results Short CBC 05/06/19 Range/Units 06:49 WBC 5.55 (4.8-10.8) K/uL Hgb 9.6 L (14.0-18.0) g/dL Hct 28.9 L (42-52) % Plt Count 129 L (130-400) K/uL BMP 05/06/19 06:49 Sodium 138 Potassium 3.2 L Chloride 109 H Carbon Dioxide 22 BUN 24 H Creatinine 0.93 Glucose 90 Calcium 8.1 L Liver Function 05/06/19 Range/Units 06:49 Total Bilirubin 0.6 (0.2-1) mg/dl AST 119 H (15-37) U/L ALT 65 (12-78) U/L Alkaline Phosphatase 60 (45-117) U/L Albumin 2.4 L (3.4-5.0) gm/dl Medications Administered Current Inpatient Medications Acetaminophen (Tylenol) 650 mg PO Q4H PRN PRN Reason: Pain or Fever Stop: 06/03/19 17:53 Albuterol (Duoneb) 3 ml NEB QIDR [facility] Stop: 06/03/19 19:59 Last Admin: 05/06/19 07:17 Dose: 3 ml Documented by: Albuterol (Duoneb) 3 ml NEB Q4H PRN PRN Reason: Shortness Of Breath Or Wheezing Stop: 06/05/19 05:59 Amlodipine Besylate (Norvasc) 10 mg PO DAILY [facility] Stop: 06/04/19 08:59 Last Admin: 05/06/19 07:39 Dose: 10 mg Documented by: Heparin Sodium (Porcine) (Heparin Sodium (Porcine)) 5,000 units SQ Q8 [facility] Stop: 06/03/19 21:59 Last Admin: 05/06/19 06:57 Dose: 5,000 units Documented by: Piperacillin Sod/Tazobactam (Sod 3.375 gm/ Dextrose) 115 mls @ 28.75 mls/hr IV Q8H [facility]; Protocol Stop: 05/11/19 00:00 Last Admin: 05/06/19 07:39 Dose: 28.8 mls/hr Documented by: Acetaminophen (Ofirmev) 65 mls @ 200 mls/hr IV Q6H PRN PRN Reason: Fever or headache Stop: 06/05/19 05:59 Last Infusion: 05/06/19 06:57 Dose: Infused Documented by: Vancomycin HCl 2,000 mg/ (Sodium Chloride) 540 mls @ 200 mls/hr IV NOW ONE Stop: 05/06/19 11:41 Last Admin: 05/06/19 09:19 Dose: 200 mls/hr Documented by: Vancomycin HCl 1,250 mg/ (Sodium Chloride) 275 mls @ 125 mls/hr IV Q12H [facility] Stop: 05/13/19 19:59 Metoprolol Succinate (Toprol Xl) 25 mg PO BID [facility] Stop: 06/03/19 20:59 Last Admin: 05/06/19 07:39 Dose: 25 mg Documented by: Miscellaneous Information (Consult) 1 ea N/A UD PRN PRN Reason: Consult Stop: 06/03/19 17:59 Miscellaneous Information (Consult) 1 ea N/A UD PRN PRN Reason: Consult Stop: 06/05/19 08:20 Pantoprazole Sodium (Protonix) 40 mg PO DAILY [facility] Stop: 06/04/19 08:59 Last Admin: 05/06/19 07:40 Dose: 40 mg Documented by: Sertraline HCl (Zoloft) 50 mg PO DAILY [facility] Stop: 06/04/19 08:59 Last Admin: 05/06/19 07:39 Dose: 50 mg Documented by: (1) Community acquired pneumonia Laterality: right Lung location: upper lobe of lung Qualified Code(s): J18.1 - Lobar pneumonia, unspecified organism
--- NOTE | 2019-05-06 13:49 | Neurology Consultation ---
Date of Consultation May 06, 2019 Assessment & Plan (1) Metabolic encephalopathy: 1. pneumonia - likely cause of MS changes- not clear what baseline is 2. continue antibiotics Zosyn and Vanco- may need a lung lavage if not clearing 3. MRI brain with and without for further evaluation 4. sister input would be helpful or anyone that is more familiar with him 5. requesting input from PCP 6. further recommendations to follow (2) Altered mental status: Supervising Physician Co-Signing Physician Notes I have seen and discussed above patient with Dr Bao Mckeon. Patient was seen and examined. No family at bedside. Patient in chair and pleasant. Does not appear encephalopathic although at times appears manic and very tangential. He talked at length about radiation in his head and his left ear. He also talk about leaving [place] due to study in [place] and is concern regarding [facility]. 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 Neurology was consulted due to concern for encephalopathy. No collateral currently at bedside so history is limited. On examine patient is awake and alert. He is oriented to the year and place. Disoriented to his age. At times is comprehension is impaired and he is NOT able to repeat. He is oriented from left to right and he can follow a simple 2 part command. He has some word finding difficulty and naming was difficult. Basic math was ok. His speech is clear but at times tremulous. Concentration is very poor. Motor strength is symmetric. Tongue midline. Smile is symmetric. No nystagmus is present. Gait was wide based when he ambulated from rest room. The diagnosis on this patient is not yet certain, although concerning for a receptive aphasia. He does not appear encephalopathic at this time. He was admitted for Sepsis and confusion. CT head was performed and shows no signs of acute intracranial process. Recommend getting an MRI brain w/wo contrast. Unclear if patient is confabulating (misinterrpreted memories) - recommend starting IV thiamine. Please check thiamine prior to administration . History of Present Illness Reason for Consultation: dysphasia and change in MS Requesting Physician: Lani Hawkins MD Attending Physician: Lani Hawkins MD History of Present Illness Hrsavannah is a 84 year old male with PMH,HTN, GERD, anxiety, Philip's esophagus, h/o esophageal cancer S/P chemo and radiation, presented to ER for confusion. He was seen at his PCPs and reported cough for couple of days. He had chest x- ray in clinic concerning for pneumonia to right lung and clinic has been trying to get in contact to inform him of results and to picker / packer a prescription at this pharmacy. He was found trying to get into an apartment that was not his. When he arrived at the ED he was confused. He had a cough for approximately 20 minutes. It is difficulty to keep on subject. His Sister Yvette who resides in [place], said he was confused when the police were called but she thinks he is more oriented now. His sister confirms that he is retired and worked for [employer]. She reports he does not have a diagnosis of dementia and has no history of confusion in the past. Currently is is lying in bed but is hard to stay on task. He responds appropriately to questions but then goes off on a tangential speech. denies CP, SOB, abdominal pain, one sided weakness, numbness tingling, bowel or bladder issues, N, V, fever chills night sweats. Allergies Allergy/AdvReac Type Severity Reaction Status Date / Time No Known Allergies Allergy Verified 05/04/19 16:05 Home Medications Home Medications Medication Instructions Recorded Confirmed Type Complete Prostate Health 2 tabs PO DAILY 05/04/19 05/04/19 History amlodipine [Norvasc] 10 mg PO DAILY 05/04/19 05/04/19 History lisinopril 20 mg PO DAILY 05/04/19 05/04/19 History metoprolol succinate [Toprol XL] 25 mg PO BID 05/04/19 05/04/19 History pantoprazole [Protonix] 40 mg PO DAILY 05/04/19 05/04/19 History sertraline [Zoloft] 50 mg PO DAILY 05/04/19 05/04/19 History Patient History Medical History Anxiety (Chronic) Barretts esophagus (Chronic) HTN (hypertension) (Chronic) 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 March 18, 2018 Adenocarcinoma Status post PET/CT March 14, 2018 FDG avidity in the distal esophagus Plan for EUS May 08, 2018" Surgical History History of arthroplasty of knee (Chronic) History of cystoscopy (Chronic) History of cataract surgery (Chronic) Family History Other Hypertension Stroke Social History Preferred Language: Malay Communication Ability: Impaired Beliefs That Will Affect Care: None Current Living Situation: Alone Other Information That Helps Us Care for You: No Feels Safe at Home: Yes Safety Concerns: Feels Safe At This Time Smoking Status: Never smoker Hx Alcohol Use: No Hx Substance Use: No Physical Exam Physical Exam: Physical Exam: Constitutional: appearance nourished, healthy Ears, Nose, Mouth and Throat: mucous membranes moist, no injection and skin normal, eyes normal Cardiovascular: normal S-1 and S-2 and regular rate and rhythm Respiratory: course Musculoskeletal: no peripheral edema and good distal pulses Skin: no stigmata of neurocutaneous disease noted and normal and intact Eyes: extraocular muscles intact (EOMI) and pupils equal, round and reactive to light (PERRL) NEUROLOGIC EXAMINATION: Mental status: Alert and interactive Oriented to hospital, address, button pen, summer Oriented to person Speech fluent with no evidence of aphasia Cranial Nerves smile eye brow raise symmtric Reflexes: Deep tendon reflexes were symmetrical and graded 2/5. Sensory: light cool touch Coordination: unable to follow commands with finger to nose, squeeze with hands Gait/Stance: Posture normal. sitting up in bed Motor: Negative for pronator drift of out stretched arms with eyes closed. Strength: unable to assess due to patient cooperation. Results & Data Vital Signs (Past 12 Hours) Vital Signs Temp Pulse Resp BP BP Pulse Ox 05/06/19 11:22 36.5 C 81 18 109/72 90 05/06/19 11:15 77 16 91 05/06/19 07:19 81 18 95 05/06/19 07:03 36.8 C 84 20 119/65 98 05/06/19 06:35 24 99 05/06/19 05:45 39.4 C H 88 44 H 127/69 75 L Laboratory Results Abnormal lab results 05/06/19 05/06/19 Range/Units 06:49 06:49 RBC 3.30 L (4.7-6.1) M/uL Hgb 9.6 L (14.0-18.0) g/dL Hct 28.9 L (42-52) % RDW Std Deviation 48.8 H (36.4-46.3) fL RDW Coeff of Bereket 15.1 H (11.5-14.5) % Plt Count 129 L (130-400) K/uL Lymph # (Auto) 0.59 L (1.2-3.4) K/uL Potassium 3.2 L (3.5-5.1) mmol/L Chloride 109 H (98-107) mmol/L BUN 24 H (7-18) mg/dl BUN/Creatinine Ratio 26.0 H (10-20) Calcium 8.1 L (8.5-10.1) mg/dl Phosphorus 2.1 L (2.5-4.9) mg/dl AST 119 H (15-37) U/L Total Protein 5.8 L D (6.4-8.2) gm/dl Albumin 2.4 L (3.4-5.0) gm/dl Albumin/Globulin Ratio 0.7 L (0.9-2) Diagnostic Findings CT head- Large fluid level within the right maxillary sinus resulting in near complete opacification. There is also a small fluid level within the right sphenoid sinus. The mastoid air cells are clear. The calvarium and skull base are intact. The ventricles and sulci are within normal limits. There is no mass, hematoma, midline shift, or acute infarct. CXR-Right mid lung opacity suspected to localize to the anterior segment of the right upper lobe. Findings are evidence of pneumonia. This should be followed to resolution to exclude an underlying lesion. 05/04/2019 CXR -progression of dense right upper lobe consolidation and right basilar consolidation which suggests multifocal pneumonia. Mild left lower lung airspace opacity. Radiographic follow-up to ensure resolution is recommended. 05/06/2019 (1) Altered mental status Altered mental status type: delirium Qualified Code(s): R41.0 - Disorientation, unspecified
[2019-05-06] MEDS: VANCOMYCIN HCL 1,250 MG in SODIUM CHLORIDE 0.9% 250 ML IV SCH (21:00)
[2019-05-06] MEDS ORDERED: FAMOTIDINE 20 MG in SYRINGE 3 ML IV ONE (23:10)
[2019-05-07] MEDS: HEPARIN SOD 5,000 UNIT/0.5 ML VIAL SQ SCH ×3 (06:16→21:23)
[2019-05-07 06:48] LABS: Eosinophils # (auto) 0.01 K/uL (0-0.5); Eosinophils % (auto) 0.1 %; Hematocrit (blood only) 30.9 % (42-52); Hemoglobin 10.5 g/dL (14.0-18.0); Immature Granulocytes # (auto) 0.02 K/uL (0.00-0.02); Immature Granulocytes % (auto) 0.2 %; Lymphocytes # (auto) 0.44 K/uL (1.2-3.4); Mean Corpuscular Volume 85.6 fL (80-100); Mean Platelet Volume 9.3 fL (7.4-10.4); Monocytes % (auto) 4.5 %; Neutrophils # (auto) 7.96 K/uL (1.4-6.5); Neutrophils % (auto) 90.2 %; Platelet Count 168 K/uL (130-400); RDW Coefficient of Variation 14.9 % (11.5-14.5); RDW Standard Deviation 46.9 fL (36.4-46.3); Red Blood Count 3.61 M/uL (4.7-6.1); White Blood Count 8.83 K/uL (4.8-10.8)
[2019-05-07] MEDS: PANTOprazole 40 MG TAB PO SCH (07:13)
[2019-05-07] MEDS: AMLODIPINE BESYLATE 5 MG TAB PO SCH (07:13)
[2019-05-07] MEDS: PIPERACILLIN/TAZOBACTAM 3.375 GM in DEXTROSE 5% 100 ML IV SCH ×3 (07:14→23:35)
[2019-05-07] MEDS: METOPROLOL SUCC 25MG EXT REL TAB PO SCH ×2 (07:14→20:26)
[2019-05-07] MEDS: SERTRALINE HCL 50 MG TABLET PO SCH (07:14)
[2019-05-07] MEDS: VANCOMYCIN HCL 1,250 MG in SODIUM CHLORIDE 0.9% 250 ML IV SCH (07:15)
[2019-05-07] MEDS: ALBUT/IPRATROP 3MG/0.5MG NEB 3 ML VIAL NEB SCH (07:15)
[2019-05-07 07:22] LABS: BUN Creatinine Ratio 35.2 (10-20); Calcium 8.8 mg/dl (8.5-10.1); Creatinine Clr Calc Pharmacy 87.1 ml/min; Est GFR (African American) 98.5; Potassium 3.3 mmol/L (3.5-5.1)
[2019-05-07] MEDS ORDERED: POTASSIUM CHLORIDE 20 MEQ TABCR PO STA (08:53)
--- NOTE | 2019-05-07 11:08 | Fluoroscopy Report ---
FL barium swallow CLINICAL HISTORY: r/o dysfunction s/p esophageal CA with RT COMPARISON STUDY: PET/CT April 13, 2018. FLUOROSCOPY TIME: 2.2 minutes. FLUOROSCOPIC IMAGES: 13 FINDINGS: This exam was technically difficult due to difficulty positioning. Therefore, mucosal detai l is diminished. However, no high-grade stricture is noted. There is focal mild irregular narrowing w ithin the mid esophagus. This may be a site of tumor shown on PET/CT of April 13, 2018. Contrast passe d into the stomach. IMPRESSION: Technically difficult exam. Focal mild irregular narrowing within the mid esophagus which is likely a t site of tumor shown on PET/CT of April 13, 2018. No high-grade stricture. Electronically signed by: Roberto Carlos Ji M.D. 05/07/2019 11:07 AM
[2019-05-07 11:09] LABS: Lyme Ab IgG w/WB Rflx Negative (Negative)
--- NOTE | 2019-05-07 11:12 | Fluoroscopy Report ---
FL video swallow CLINICAL HISTORY: 84 years-old Male with r/o aspiration; worsening chest x rays. Acute dysphasia wit h possible aspiration. Right upper lobe airspace disease TECHNIQUE: Video fluoroscopic evaluation of swallowing was performed in the AP projection only by the speech pathology staff. The patient was reportedly unable to follow commands and was given pudding c onsistency only. FLUOROSCOPY TIME: 3.2 minutes.. COMPARISON STUDY: Chest radiograph 05/06/2019 FINDINGS: Delayed oral pharyngeal phase of swallowing. No definite aspiration identified on these AP images only. The study is motion degraded. IMPRESSION: 1. Limited exam as above without aspiration identified. 2. Please see the speech pathologist report for detailed findings and recommendations. Electronically signed by: Don Allison M.D. 05/07/2019 11:11 AM
[2019-05-07 11:18] LABS: Lyme Ab IgM w/WB Rflx Negative (Negative)
--- NOTE | 2019-05-07 11:40 | Hospitalist Progress Note ---
Date of Service I had a long discussion with the sister According to her he has been normal 1 week ago He is completely alert and oriented and behaving normally with 1 His esophageal cancer was treated with chemo and radiation which was finished sometime in July He was supposed to have another check on that this March but he missed that The family members noticed that confusion for the last few days She was informed about current diagnosis and ongoing treatment including neurologist evaluation and further testing She has been satisfied with the care May 07, 2019 Assessment & Plan (1) Metabolic encephalopathy: Acute confusion Likely secondary to acute sinusitis and pneumonia. Doubt any UTI CT head: No acute intracranial abnormality No change in acute confusion No change of his acute confusion Appreciate neurology evaluation and recommendation Awaiting MRI of the head with and without contrast Information from the sister: I had a long discussion with the sister According to her he has been normal 1 week ago He is completely alert and oriented and behaving normally with 1 His esophageal cancer was treated with chemo and radiation which was finished sometime in July He was supposed to have another check on that this March but he missed that The family members noticed that confusion for the last few days She was informed about current diagnosis and ongoing treatment including neurologist evaluation and further testing She has been satisfied with the care (2) Community acquired pneumonia: Right midlung opacity suspected of pneumonia Has been on intravenous Zosyn Received 1 dose of azithromycin for atypical coverage Will start doxycycline and continue Zosyn for now Doxycycline was not started yesterday on 05/05 He has had fever last night Will start vancomycin for broader coverage for the pneumonia We will check MRSA screen-negative We will continue current antibiotics (3) Dysphasia: Seems to have dysarthria/dysphasia Questionable stuttering speech Does not have any other neurological deficit No photophobia and no neck stiffness Will take advice from neurologist for further management of this problem Speech evaluation has been requested Barium swallow-Technically difficult exam. Focal mild irregular narrowing within the mid esophagus which is likely at site of tumor shown on PET/CT of April 13, 2018. No high-grade stricture. Swallowing evaluation-no significant aspiration Will continue management plan as per speech therapist (4) Elevated lactic acid level: Meets SIRS criteria for but does not have any sepsis CXR: right mid lung infiltrate CT HEAD: No acute intracranial abnormality. Acute right paranasal sinusitis. Repeat lactate improved to 2.3 from 2.6 Await blood culture-negative (5) JEAN CARLOS (acute kidney injury): Cr: 1.5. 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 Spoke with pt's sister - Yvette who wishes Full code Pt's sister -Yvette Bingham would like update. . (she lives in [place]) Follows with Dr Loza for routine care Discussed with the daughter (11) Acute maxillary antritis: Noted to have right-sided paranasal sinus opacity Zosyn plus doxy will cover appropriately-Doxy was not started He will get vancomycin from today-empiric coverage for about 48 hours Subjective 05/05 The patient was seen and examined in medical telemetry unit He remains confused Does not have any acute distress and denies any chest pain and/or shortness of breath, no abdominal pain nausea and or vomiting Did not have any fever and/or chills 05/06 The patient was seen and examined in medical floor He remains confused but seems to be a little bit better compared with yesterday He has significant dysphasia in the form of stuttering but denies any focal neurological deficit He was noted to have a high fever last night Denies any chest pain, any cough, palpitation, abdominal pain, nausea no vomiting, headache, blurred vision, or any weakness involving any side 05/07 The patient was seen and examined the medical telemetry unit He remains confused Denies any acute symptoms Review of Systems Review of Systems: All systems reviewed and are unremarkable except as noted below Constitutional: + weakness and + daytime sleepiness Musculoskeletal: No acute arthritis in any joints Neurologic: + abnormal speech (Has dysphagia in the form of stuttering speech, no headache and or photophobia and no neck stiffness) and + confusion (Remains acutely confused) Psychiatric: + confusion (Acute confusion without any hallucination or agitation) Physical Exam Physical Exam: No apparent distress at rest except very anxious Constitutional: well developed, well nourished and + ill appearing; no acute distress Eyes: PERRL, conjunctivae normal, anicteric sclerae ENMT: external ear and nose normal, oropharynx normal Neck: trachea midline, no thyromegaly Respiratory: normal respiratory effort; no respiratory distress Auscultation: lungs clear to auscultation bilaterally Cardiovascular: Rate/Rhythm: regular rate and regular rhythm Heart Sounds: no murmur Gastrointestinal (Abdomen): Inspection/Auscultation: abdomen normal to inspection and normal bowel sounds Percussion/Palpation: abdomen soft Neurologic: moves all extremities Speech / Cognition: + abnormal speech Remains confused Lymphatic: no cervical or axillary lymphadenopathy Results & Data Vital Signs (Past 12 Hours) Vital Signs Temp Pulse Pulse Resp BP BP Pulse Ox 05/07/19 07:16 85 18 91 05/07/19 07:04 36.6 C 78 18 127/74 94 05/07/19 05:02 36.4 C L 75 18 127/73 92 05/07/19 01:38 82 Laboratory Results Short CBC 05/07/19 Range/Units 05:46 WBC 8.83 (4.8-10.8) K/uL Hgb 10.5 L (14.0-18.0) g/dL Hct 30.9 L (42-52) % Plt Count 168 (130-400) K/uL BMP 05/07/19 05:46 Sodium 143 Potassium 3.3 L Chloride 111 H Carbon Dioxide 25 BUN 27 H Creatinine 0.76 Glucose 132 H Calcium 8.8 Medications Administered Current Inpatient Medications Acetaminophen (Tylenol) 650 mg PO Q4H PRN PRN Reason: Pain or Fever Stop: 06/03/19 17:53 Albuterol (Duoneb) 3 ml NEB Q4H PRN PRN Reason: Shortness Of Breath Or Wheezing Stop: 06/05/19 05:59 Amlodipine Besylate (Norvasc) 10 mg PO DAILY SAEID Stop: 06/04/19 08:59 Last Admin: 05/07/19 07:13 Dose: Not Given Documented by: Gadobutrol (Gadavist 65ml) 9 ml IV ONCE PRN PRN Reason: Interaction Checking Stop: 05/11/19 12:05 Last Admin: 05/07/19 12:07 Dose: 9 ml Documented by: Heparin Sodium (Porcine) (Heparin Sodium (Porcine)) 5,000 units SQ Q8 SAEID Stop: 06/03/19 21:59 Last Admin: 05/07/19 06:16 Dose: 5,000 units Documented by: Piperacillin Sod/Tazobactam (Sod 3.375 gm/ Dextrose) 115 mls @ 28.75 mls/hr IV Q8H SAEID; Protocol Stop: 05/11/19 00:00 Last Infusion: 05/07/19 12:06 Dose: Infused Documented by: Acetaminophen (Ofirmev) 65 mls @ 200 mls/hr IV Q6H PRN PRN Reason: Fever or headache Stop: 06/05/19 05:59 Last Infusion: 05/06/19 06:57 Dose: Infused Documented by: Vancomycin HCl 1,250 mg/ (Sodium Chloride) 275 mls @ 125 mls/hr IV Q12H SAEID Stop: 05/13/19 19:59 Last Infusion: 05/07/19 09:27 Dose: Infused Documented by: Metoprolol Succinate (Toprol Xl) 25 mg PO BID SAEID Stop: 06/03/19 20:59 Last Admin: 05/07/19 07:14 Dose: Not Given Documented by: Miscellaneous Information (Consult) 1 ea N/A UD PRN PRN Reason: Consult Stop: 06/03/19 17:59 Miscellaneous Information (Consult) 1 ea N/A UD PRN PRN Reason: Consult Stop: 06/05/19 08:20 Pantoprazole Sodium (Protonix) 40 mg PO DAILY SAEID Stop: 06/04/19 08:59 Last Admin: 05/07/19 07:13 Dose: Not Given Documented by: Sertraline HCl (Zoloft) 50 mg PO DAILY SAEID Stop: 06/04/19 08:59 Last Admin: 05/07/19 07:14 Dose: Not Given Documented by: (1) Community acquired pneumonia Laterality: right Lung location: upper lobe of lung Qualified Code(s): J18.1 - Lobar pneumonia, unspecified organism
[2019-05-07] MEDS ORDERED: GADOBUTROL 65ML VIAL IV PRN (12:06)
--- NOTE | 2019-05-07 12:53 | Magnetic Resonance Report ---
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 There is no restricted diffusion to suggest acute or subacute infarction. Midline structures including the corpu s callosum, brainstem, optic chiasm, pituitary and pineal glands appear unremarkable on the sagittal T1 series. No cerebellar tonsillar herniation. Degenerative changes noted about the imaged cervical s pine. No acute intracranial hemorrhage, midline shift, abnormal extra axial collection, hydrocephalus or in tracranial mass. There is no abnormal intra-axial or extra-axial enhancement identified. Age-related involutional changes with mild ex vacuo ventriculomegaly. There are a few patchy areas of mildly incr eased T2/FLAIR signal abnormalities about the periventricular and subcortical white matter of the cer ebral hemispheres bilaterally, nonspecific however suggestive of probable minimal chronic microvascul ar ischemic disease. The major flow voids at the level of the skull base appear patent. Mastoid air c ells are clear. T2 hypointense layering debris about the right maxillary sinus with mucoperiosteal th ickening and large air-fluid level compatible with acute on chronic disease. Mild mucosal thickening about the ethmoid air cells and frontal sinuses with moderate air-fluid level of the right sphenoid s inus. Skull and soft tissues are unremarkable. Prior bilateral cataract repair. IMPRESSION: 1. No acute intracranial abnormality, specifically no acute or subacute infarction. 2. No abnormal enhancement. 3. Age-related involutional changes with suggestion of minimal chronic microvascular ischemic disease . 4. Acute on chronic sinus disease. The above report was generated using voice recognition software. It may contain grammatical, syntax o r spelling errors. Electronically signed by: Don Allison M.D. 05/07/2019 12:52 PM
--- NOTE | 2019-05-07 13:51 | Neurology Progress Note ---
Date of Service May 07, 2019 Assessment & Plan (1) Metabolic encephalopathy: 1. pneumonia - likely cause of MS changes- not clear what baseline is- sister contacted and states he was normal self a week ago 2. continue antibiotics Zosyn and Vanco- may need a lung lavage if not clearing 3. MRI brain with and without no acute abnormalities 4. sister input helpful for baseline 5. requesting input from PCP- he has had tangential speech which is not new. 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 patient seems improved today- hopefully the pneumonia treatment will continue to improve confusion (2) Altered mental status: Supervising Physician Co-Signing Physician Notes I have seen and discussed above patient with Dr Bao Mckeon. Patient seen and examined. No family at bedside. Awake and alert. Oriented to age and place. Very talkative and tangential. He is following for the most part. Speech is clear and fast. When ask if he saw a piece of string (no string) he said "Yes". MRI brain reviewed and showed no evidence of acute stroke or abnormal enhancement. Patient appears to be confabulating. He has a history of malignancy and unbalanced nutrition. He certainly may have a wernicke's encephalopathy. On examine he does have difficulty with his EOMI but this may be volitional. Recommend checking thiamine level and starting IV thiamine 500 mg IV 3x daily x2 days. Huber Elizabeth is a 84 year old male with PMH, HTN, GERD, anxiety, Philip's esophagus, h/o esophageal cancer S/P chemo and radiation, presented to ER for confusion. He was seen at his PCPs and reported cough for couple of days. 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 He was found trying to get into an apartment that was not his. When he arrived at the ED he was confused. He had a cough for approximately 20 minutes. It is difficulty to keep on subject. His Sister Yvette who resides in [place], said he was confused when the police were called but she thinks he is more oriented now. His sister confirms that he is retired and worked for [employer]. She reports he does not have a diagnosis of dementia and has no history of confusion in the past. Today he is sitting in bedside chair eating lunch. He responds appropriately to questions but then goes off on a tangential speech. denies CP, SOB, abdominal pain, one sided weakness, numbness tingling, bowel or bladder issues, N, V, fever chills night sweats. 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 He states he has a hard time dealing with this. 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 Results & Data Vital Signs (Past 12 Hours) Vital Signs Temp Pulse Resp BP BP Pulse Ox 05/07/19 07:16 85 18 91 05/07/19 07:04 36.6 C 78 18 127/74 94 05/07/19 05:02 36.4 C L 75 18 127/73 92 Laboratory Results Abnormal lab results 05/07/19 05/07/19 Range/Units 05:46 05:46 RBC 3.61 L (4.7-6.1) M/uL Hgb 10.5 L (14.0-18.0) g/dL Hct 30.9 L (42-52) % RDW Std Deviation 46.9 H (36.4-46.3) fL RDW Coeff of Bereket 14.9 H (11.5-14.5) % Neut # (Auto) 7.96 H (1.4-6.5) K/uL Lymph # (Auto) 0.44 L (1.2-3.4) K/uL Potassium 3.3 L (3.5-5.1) mmol/L Chloride 111 H (98-107) mmol/L BUN 27 H (7-18) mg/dl BUN/Creatinine Ratio 35.2 H (10-20) Glucose 132 H (70-99) mg/dl Diagnostic Findings MRI with and without brain-No acute intracranial abnormality, specifically no acute or subacute infarction. No abnormal enhancement. Age-related involutional changes with suggestion of minimal chronic microvascular ischemic disease. Acute on chronic sinus disease. barium swallow study-Technically difficult exam. Focal mild irregular narrowing within the mid esophagus which is likely at site of tumor shown on PET/CT of April 13, 2018. No high-grade stricture. (1) Altered mental status Altered mental status type: delirium Qualified Code(s): R41.0 - Disorientation, unspecified
[2019-05-07] MEDS: DOXYCYCLINE HYCLATE 100 MG in DEXTROSE 5% 100 ML IV SCH ×2 (14:35→20:37)
[2019-05-07] MEDS ORDERED: THIAMINE HCL 500 MG in 0.9 % SODIUM CHLORIDE 100 ML IV ONE (18:15)
[2019-05-07] MEDS ORDERED: Nursing to Pharmacy Communication ONE (19:03)
[2019-05-07] MEDS ORDERED: VANCOMYCIN TROUGH ONE (19:30)
[2019-05-08] MEDS: HEPARIN SOD 5,000 UNIT/0.5 ML VIAL SQ SCH ×3 (05:06→20:32)
[2019-05-08] MEDS: THIAMINE HCL 500 MG in 0.9 % SODIUM CHLORIDE 100 ML IV SCH (08:39)
[2019-05-08] MEDS: DOXYCYCLINE HYCLATE 100 MG in DEXTROSE 5% 100 ML IV SCH ×2 (08:42→20:24)
[2019-05-08] MEDS ORDERED: THIAMINE HCL 500 MG in 0.9 % SODIUM CHLORIDE 100 ML IV ONE ×2 (09:00→18:00)
[2019-05-08 09:15] LABS: Eosinophils # (auto) 0.01 K/uL (0-0.5); Eosinophils % (auto) 0.1 %; Hematocrit (blood only) 34.8 % (42-52); Hemoglobin 11.5 g/dL (14.0-18.0); Immature Granulocytes # (auto) 0.02 K/uL (0.00-0.02); Immature Granulocytes % (auto) 0.3 %; Lymphocytes % (auto) 8.8 %; Mean Corpuscular Volume 85.1 fL (80-100); Mean Platelet Volume 9.1 fL (7.4-10.4); Monocytes # (auto) 0.49 K/uL (0.11-0.59); Monocytes % (auto) 6.2 %; Neutrophils # (auto) 6.74 K/uL (1.4-6.5); Neutrophils % (auto) 84.6 %; Platelet Count 244 K/uL (130-400); RDW Standard Deviation 47.1 fL (36.4-46.3); Red Blood Count 4.09 M/uL (4.7-6.1); White Blood Count 7.96 K/uL (4.8-10.8)
[2019-05-08] MEDS: PANTOprazole 40 MG TAB PO SCH (09:17)
[2019-05-08] MEDS: AMLODIPINE BESYLATE 5 MG TAB PO SCH (09:17)
[2019-05-08] MEDS: SERTRALINE HCL 50 MG TABLET PO SCH (09:17)
[2019-05-08] MEDS: METOPROLOL SUCC 25MG EXT REL TAB PO SCH ×2 (09:18→20:22)
[2019-05-08 09:48] LABS: BUN Creatinine Ratio 31.9 (10-20); Calcium 8.6 mg/dl (8.5-10.1); Creatinine Clr Calc Pharmacy 74.4 ml/min; Est GFR (African American) 92.3; Est GFR (Non-African American) 79.6; Magnesium 2.2 mg/dl (1.8-2.4); Phosphorus 2.1 mg/dl (2.5-4.9); Potassium 3.2 mmol/L (3.5-5.1)
[2019-05-08] MEDS: PIPERACILLIN/TAZOBACTAM 3.375 GM in DEXTROSE 5% 100 ML IV SCH ×3 (10:01→23:22)
[2019-05-08] MEDS: POTASSIUM CHLORIDE / WTR 10 MEQ/100 ML PLCT IV SCH ×2 (10:01→11:06)
--- NOTE | 2019-05-08 15:26 | Hospitalist Progress Note ---
Date of Service May 08, 2019 Assessment & Plan (1) Metabolic encephalopathy: Acute confusion Likely secondary to acute sinusitis and pneumonia. Doubt any UTI CT head: No acute intracranial abnormality No change in acute confusion No change of his acute confusion Appreciate neurology evaluation and recommendation Awaiting MRI of the head with and without contrast-did not show any significant relation Discussed with neurologist-we will check thiamine level and give 500 mg of thiamine IV daily x2 days Information from the sister: I had a long discussion with the sister According to her he has been normal 1 week ago He is completely alert and oriented and behaving normally with 1 His esophageal cancer was treated with chemo and radiation which was finished sometime in July He was supposed to have another check on that this March but he missed that The family members noticed that confusion for the last few days She was informed about current diagnosis and ongoing treatment including neurologist evaluation and further testing She has been satisfied with the care (2) Community acquired pneumonia: Right midlung opacity suspected of pneumonia Has been on intravenous Zosyn Received 1 dose of azithromycin for atypical coverage Will start doxycycline and continue Zosyn for now Doxycycline was not started yesterday on 05/05 He has had fever last night Will start vancomycin for broader coverage for the pneumonia We will check MRSA screen-negative We will continue current antibiotics-symptomatically improved (3) Dysphasia: Seems to have dysarthria/dysphasia Questionable stuttering speech Does not have any other neurological deficit No photophobia and no neck stiffness Will take advice from neurologist for further management of this problem Speech evaluation has been requested Barium swallow-Technically difficult exam. Focal mild irregular narrowing within the mid esophagus which is likely at site of tumor shown on PET/CT of April 13, 2018. No high-grade stricture. Swallowing evaluation-no significant aspiration Will continue management plan as per speech therapist Will discuss with GI for possible EGD with ongoing problem with swallowing and history of esophageal cancer status post chemo and radiation (4) Elevated lactic acid level: Meets SIRS criteria for but does not have any sepsis CXR: right mid lung infiltrate CT HEAD: No acute intracranial abnormality. Acute right paranasal sinusitis. Repeat lactate improved to 2.3 from 2.6 Await blood culture-negative (5) JEAN CARLOS (acute kidney injury): Cr: 1.5. 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 Spoke with pt's sister - Yvette who wishes Full code Pt's sister -Yvette Bingham would like update. . (she lives in [place]) Follows with Dr Loza for routine care Discussed with the daughter (11) Acute maxillary antritis: Noted to have right-sided paranasal sinus opacity Zosyn plus doxy will cover appropriately-Doxy was not started He will get vancomycin from today-empiric coverage for about 48 hours Has been on Zosyn and doxycycline Subjective 05/05 The patient was seen and examined in medical telemetry unit He remains confused Does not have any acute distress and denies any chest pain and/or shortness of breath, no abdominal pain nausea and or vomiting Did not have any fever and/or chills 05/06 The patient was seen and examined in medical floor He remains confused but seems to be a little bit better compared with yesterday He has significant dysphasia in the form of stuttering but denies any focal neurological deficit He was noted to have a high fever last night Denies any chest pain, any cough, palpitation, abdominal pain, nausea no vomiting, headache, blurred vision, or any weakness involving any side 05/07 The patient was seen and examined the medical telemetry unit He remains confused Denies any acute symptoms 05/08 Patient was seen and examined in medical telemetry unit He remains confused without hallucination but has confabulation Denies any acute symptoms Review of Systems Review of Systems: All systems reviewed and are unremarkable except as noted below Constitutional: + weakness and + daytime sleepiness Musculoskeletal: No acute arthritis in any joints Neurologic: + abnormal speech (Has dysphagia in the form of stuttering speech, no headache and or photophobia and no neck stiffness) and + confusion (Remains acutely confused) Psychiatric: + confusion (Acute confusion without any hallucination or ag itation) Physical Exam Physical Exam: Sitting on the bed without any acute symptoms but confused Constitutional: well developed and well nourished; no acute distress Eyes: PERRL, conjunctivae normal, anicteric sclerae ENMT: external ear and nose normal, oropharynx normal Neck: trachea midline, no thyromegaly Respiratory: normal respiratory effort; no respiratory distress Auscultation: lungs clear to auscultation bilaterally Cardiovascular: Rate/Rhythm: regular rate and regular rhythm Heart Sounds: no murmur Gastrointestinal (Abdomen): Inspection/Auscultation: abdomen normal to inspection and normal bowel sounds Percussion/Palpation: abdomen soft Skin: no rashes, warm and dry Neurologic: moves all extremities Speech / Cognition: + abnormal speech Lymphatic: no cervical or axillary lymphadenopathy Results & Data Vital Signs (Past 12 Hours) Vital Signs Temp Pulse Pulse Resp BP Pulse Ox 05/08/19 15:12 96 H 05/08/19 14:38 36.7 C 96 H 18 139/78 93 05/08/19 11:50 36.8 C 95 H 16 133/67 93 05/08/19 07:22 36.6 C 67 69 18 123/68 91 05/08/19 05:17 36.3 C L 73 20 107/64 95 Laboratory Results Short CBC 05/08/19 Range/Units 09:00 WBC 7.96 (4.8-10.8) K/uL Hgb 11.5 L (14.0-18.0) g/dL Hct 34.8 L (42-52) % Plt Count 244 (130-400) K/uL BMP 05/08/19 09:00 Sodium 145 Potassium 3.2 L Chloride 112 H Carbon Dioxide 26 BUN 28 H Creatinine 0.89 Glucose 93 Calcium 8.6 Medications Administered Current Inpatient Medications Acetaminophen (Tylenol) 650 mg PO Q4H PRN PRN Reason: Pain or Fever Stop: 06/03/19 17:53 Albuterol (Duoneb) 3 ml NEB Q4H PRN PRN Reason: Shortness Of Breath Or Wheezing Stop: 06/05/19 05:59 Amlodipine Besylate (Norvasc) 10 mg PO DAILY [facility] Stop: 06/04/19 08:59 Last Admin: 05/08/19 09:17 Dose: 10 mg Documented by: Gadobutrol (Gadavist 65ml) 9 ml IV ONCE PRN PRN Reason: Interaction Checking Stop: 05/11/19 12:05 Last Admin: 05/07/19 12:07 Dose: 9 ml Documented by: Heparin Sodium (Porcine) (Heparin Sodium (Porcine)) 5,000 units SQ Q8 [facility] Stop: 06/03/19 21:59 Last Admin: 05/08/19 14:08 Dose: 5,000 units Documented by: Piperacillin Sod/Tazobactam (Sod 3.375 gm/ Dextrose) 115 mls @ 28.75 mls/hr IV Q8H [facility]; Protocol Stop: 05/11/19 00:00 Last Infusion: 05/08/19 14:03 Dose: Infused Documented by: Acetaminophen (Ofirmev) 65 mls @ 200 mls/hr IV Q6H PRN PRN Reason: Fever or headache Stop: 06/05/19 05:59 Last Infusion: 05/06/19 06:57 Dose: Infused Documented by: Doxycycline Hyclate 100 mg/ (Dextrose) 110 mls @ 50 mls/hr IV Q12 [facility]; Protocol Stop: 05/14/19 14:29 Last Infusion: 05/08/19 11:13 Dose: Infused Documented by: Thiamine HCl 500 mg/ Sodium (Chloride) 105 mls @ 3.5 mls/min IV DAILY@0900 [facility] Stop: 05/09/19 09:29 Last Admin: 05/08/19 08:39 Dose: 3.5 mls/min Documented by: Metoprolol Succinate (Toprol Xl) 25 mg PO BID [facility] Stop: 06/03/19 20:59 Last Admin: 05/08/19 09:18 Dose: 25 mg Documented by: Miscellaneous Information (Consult) 1 ea N/A UD PRN PRN Reason: Consult Stop: 06/03/19 17:59 Pantoprazole Sodium (Protonix) 40 mg PO DAILY [facility] Stop: 06/04/19 08:59 Last Admin: 05/08/19 09:17 Dose: 40 mg Documented by: Sertraline HCl (Zoloft) 50 mg PO DAILY [facility] Stop: 06/04/19 08:59 Last Admin: 05/08/19 09:17 Dose: 50 mg Documented by: (1) Community acquired pneumonia Laterality: right Lung location: upper lobe of lung Qualified Code(s): J18.1 - Lobar pneumonia, unspecified organism
[2019-05-09] MEDS: HEPARIN SOD 5,000 UNIT/0.5 ML VIAL SQ SCH ×3 (05:09→21:11)
[2019-05-09] MEDS: THIAMINE HCL 500 MG in 0.9 % SODIUM CHLORIDE 100 ML IV SCH (08:02)
[2019-05-09] MEDS: DOXYCYCLINE HYCLATE 100 MG in DEXTROSE 5% 100 ML IV SCH (08:02)
[2019-05-09] MEDS: PIPERACILLIN/TAZOBACTAM 3.375 GM in DEXTROSE 5% 100 ML IV SCH (08:02)
[2019-05-09] MEDS: METOPROLOL SUCC 25MG EXT REL TAB PO SCH ×2 (08:03→20:23)
[2019-05-09] MEDS: AMLODIPINE BESYLATE 5 MG TAB PO SCH (08:03)
[2019-05-09] MEDS: SERTRALINE HCL 50 MG TABLET PO SCH (08:03)
[2019-05-09] MEDS: PANTOprazole 40 MG TAB PO SCH (08:03)
[2019-05-09] MEDS ORDERED: POTASSIUM PHOS 3 MMOL/1 ML INFUSION IV STA (08:12)
[2019-05-09] MEDS ORDERED: POTASSIUM PHOSPHATE 24 MMOL in SODIUM CHLORIDE 0.9% 500 ML IV ONE (09:00)
[2019-05-09] MEDS: POT PHOSPHATE MONOBASIC W/ SOD TAB PO SCH ×3 (10:42→20:36)
--- NOTE | 2019-05-09 12:07 | Hospitalist Progress Note ---
Date of Service May 09, 2019 Assessment & Plan (1) Metabolic encephalopathy: Acute confusion Likely secondary to acute sinusitis and pneumonia. Doubt any UTI CT head: No acute intracranial abnormality No change in acute confusion No change of his acute confusion Appreciate neurology evaluation and recommendation Awaiting MRI of the head with and without contrast-did not show any significant relation Discussed with neurologist-we will check thiamine level and give 500 mg of thiamine IV daily x2 days Does not show any improvement of his confusion Has been requiring more observation Denies any significant symptoms Information from the sister: I had a long discussion with the sister According to her he has been normal 1 week ago He is completely alert and oriented and behaving normally with 1 His esophageal cancer was treated with chemo and radiation which was finished sometime in July He was supposed to have another check on that this March but he missed that The family members noticed that confusion for the last few days She was informed about current diagnosis and ongoing treatment including neurologist evaluation and further testing She has been satisfied with the care (2) Community acquired pneumonia: Right midlung opacity suspected of pneumonia Has been on intravenous Zosyn Received 1 dose of azithromycin for atypical coverage Will start doxycycline and continue Zosyn for now Doxycycline was not started yesterday on 05/05 He has had fever last night Will start vancomycin for broader coverage for the pneumonia We will check MRSA screen-negative We will continue current antibiotics-symptomatically improved IV antibiotics discontinued and only doxycycline 100 mg twice daily was continued (3) Dysphasia: Seems to have dysarthria/dysphasia Questionable stuttering speech Does not have any other neurological deficit No photophobia and no neck stiffness Will take advice from neurologist for further management of this problem Speech evaluation has been requested Barium swallow-Technically difficult exam. Focal mild irregular narrowing within the mid esophagus which is likely at site of tumor shown on PET/CT of April 13, 2018. No high-grade stricture. Swallowing evaluation-no significant aspiration Will continue management plan as per speech therapist Will discuss with GI for possible EGD with ongoing problem with swallowing and history of esophageal cancer status post chemo and radiation (4) Elevated lactic acid level: Meets SIRS criteria for but does not have any sepsis CXR: right mid lung infiltrate CT HEAD: No acute intracranial abnormality. Acute right paranasal sinusitis. Repeat lactate improved to 2.3 from 2.6 Await blood culture-negative (5) JEAN CARLOS (acute kidney injury): Cr: 1.5. 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 Spoke with pt's sister - Yvette who wishes Full code Pt's sister -Yvette Bingham would like update. . (she lives in [place]) Follows with Dr Loza for routine care Discussed with the daughter Will likely need placement either in skilled care facility or dementia unit (11) Acute maxillary antritis: Noted to have right-sided paranasal sinus opacity Zosyn plus doxy will cover appropriately-Doxy was not started He will get vancomycin from today-empiric coverage for about 48 hours Has been on Zosyn and doxycycline Subjective 05/05 The patient was seen and examined in medical telemetry unit He remains confused Does not have any acute distress and denies any chest pain and/or shortness of breath, no abdominal pain nausea and or vomiting Did not have any fever and/or chills 05/06 The patient was seen and examined in medical floor He remains confused but seems to be a little bit better compared with yesterday He has significant dysphasia in the form of stuttering but denies any focal neurological deficit He was noted to have a high fever last night Denies any chest pain, any cough, palpitation, abdominal pain, nausea no vomiting, headache, blurred vision, or any weakness involving any side 05/07 The patient was seen and examined the medical telemetry unit He remains confused Denies any acute symptoms 05/08 Patient was seen and examined in medical telemetry unit He remains confused without hallucination but has confabulation Denies any acute symptoms 05/09 The patient was seen and examined in medical telemetry unit He remains confused Denies any significant symptoms Review of Systems Review of Systems: All systems reviewed and are unremarkable except as noted below Constitutional: + weakness and + daytime sleepiness Musculoskeletal: No acute arthritis in any joints Neurologic: + abnormal speech (Has dysphagia in the form of stuttering speech, no headache and or photophobia and no neck stiffness) and + confusion (Remains acutely confused) Psychiatric: + confusion (Acute confusion without any hallucination or agitation) Physical Exam Physical Exam: Minimal distress at rest. Wants to come out of bed. Constitutional: well developed and well nourished; no acute distress Eyes: PERRL, conjunctivae normal, anicteric sclerae ENMT: external ear and nose normal, oropharynx normal Neck: trachea midline, no thyromegaly Respiratory: normal respiratory effort; no respiratory distress Auscultation: lungs clear to auscultation bilaterally Cardiovascular: Rate/Rhythm: regular rate and regular rhythm Heart Sounds: no murmur Gastrointestinal (Abdomen): Inspection/Auscultation: abdomen normal to inspection and normal bowel sounds Percussion/Palpation: abdomen soft Musculoskeletal: No acute arthritis in any joints Skin: no rashes, warm and dry Neurologic: moves all extremities Speech / Cognition: + abnormal speech Lymphatic: no cervical or axillary lymphadenopathy Results & Data Vital Signs (Past 12 Hours) Vital Signs Temp Pulse Pulse Resp BP Pulse Ox 05/09/19 11:22 36.8 C 91 H 16 133/71 93 05/09/19 07:17 82 05/09/19 06:48 36.7 C 92 H 20 139/62 95 Medications Administered Current Inpatient Medications Acetaminophen (Tylenol) 650 mg PO Q4H PRN PRN Reason: Pain or Fever Stop: 06/03/19 17:53 Albuterol (Duoneb) 3 ml NEB Q4H PRN PRN Reason: Shortness Of Breath Or Wheezing Stop: 06/05/19 05:59 Amlodipine Besylate (Norvasc) 10 mg PO DAILY [facility] Stop: 06/04/19 08:59 Last Admin: 05/09/19 08:03 Dose: 10 mg Documented by: Doxycycline Hyclate (Vibramycin) 100 mg PO BID [facility] Stop: 05/13/19 21:01 Gadobutrol (Gadavist 65ml) 9 ml IV ONCE PRN PRN Reason: Interaction Checking Stop: 05/11/19 12:05 Last Admin: 05/07/19 12:07 Dose: 9 ml Documented by: Heparin Sodium (Porcine) (Heparin Sodium (Porcine)) 5,000 units SQ Q8 [facility] Stop: 06/03/19 21:59 Last Admin: 05/09/19 05:09 Dose: 5,000 units Documented by: Acetaminophen (Ofirmev) 65 mls @ 200 mls/hr IV Q6H PRN PRN Reason: Fever or headache Stop: 06/05/19 05:59 Last Infusion: 05/06/19 06:57 Dose: Infused Documented by: Metoprolol Succinate (Toprol Xl) 25 mg PO BID [facility] Stop: 06/03/19 20:59 Last Admin: 05/09/19 08:03 Dose: 25 mg Documented by: Pantoprazole Sodium (Protonix) 40 mg PO DAILY [facility] Stop: 06/04/19 08:59 Last Admin: 05/09/19 08:03 Dose: 40 mg Documented by: Potassium Phosphate (Phospha 250 Neutral [id number] Mg) 2 tab PO BID [facility] Stop: 06/08/19 09:44 Last Admin: 05/09/19 10:42 Dose: 2 tab Documented by: Sertraline HCl (Zoloft) 50 mg PO DAILY [facility] Stop: 06/04/19 08:59 Last Admin: 05/09/19 08:03 Dose: 50 mg Documented by: (1) Community acquired pneumonia Laterality: right Lung location: upper lobe of lung Qualified Code(s): J18.1 - Lobar pneumonia, unspecified organism
[2019-05-09] MEDS: DOXYCYCLINE HYCLATE 100 MG CAP PO SCH (20:24)
[2019-05-10] MEDS: HEPARIN SOD 5,000 UNIT/0.5 ML VIAL SQ SCH ×3 (05:09→21:37)
[2019-05-10] MEDS: SERTRALINE HCL 50 MG TABLET PO SCH (07:58)
[2019-05-10] MEDS: AMLODIPINE BESYLATE 5 MG TAB PO SCH (07:59)
[2019-05-10] MEDS: DOXYCYCLINE HYCLATE 100 MG CAP PO SCH ×2 (07:59→21:36)
[2019-05-10] MEDS: PANTOprazole 40 MG TAB PO SCH (07:59)
[2019-05-10] MEDS: POT PHOSPHATE MONOBASIC W/ SOD TAB PO SCH ×2 (07:59→21:37)
[2019-05-10] MEDS: METOPROLOL SUCC 25MG EXT REL TAB PO SCH ×2 (07:59→21:36)
--- NOTE | 2019-05-10 14:14 | Psychiatric Consultation ---
Date of Consultation May 10, 2019 Impression / Recommendations Impression 84-year-old male admitted medically on 05/04/19 due to confusion, found to have pneumonia and sinusitis. Concern for metabolic encephalopathy causing confusion. Psychiatric consultation is requested to assess patient for "acute psychosis/confusion/confabulation." Patient denies SI/HI, A/V hallucinations, overt delusions, or any signs suggestive of psychosis. His presentation, acute worsening of mental status with confusion beginning in the last week, is more consistent with a delirium. He has several risk factors to suggest this, including age, pneumonia/sinusitis infections, previous similar presentation in 2012, JEAN CARLOS, and metabolic abnormalities. There is limited evidence at this time to suggest his condition is better explained by a primary psychiatric disorder. No indication for inpatient psychiatric admission. Due to limited history with this patient, it is difficult to evaluate for continued confusion on initial encounter. Pt is alert and oriented to person, place, and time. He is aware that he was brought to the ED by police and, from what can be confirmed by supports, is able to provide rather decent history. 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 Documentation from 2012 psychiatric consult states, sister "reports the patient is very intelligent and she believes that is why he has always been poor with social skills and she often needs to say numerous times the question she is asking." Patient also indicates, "If there were any issues with me mentally, they would have picked up on it. [employer] had me watched." Sister denies previous history of dementia or confused states. At this time, there is no known history of a primary psychiatric condition which may better explain the patient's presentation. While patient does present as tangential in conversation with pressured speech, this has been reported in documentation since at least 2011. Recommending behavioral management for delirium, which is likely to clear after underlying medical conditions have been addressed, though improvement may not be immediate. In the meantime, suggest frequent re-orientation to person, place, time, event, and intervention desired. Utilization of corrective lenses and assistive hearing devices as applicable. Consider allowing familiar visitors and familiar items in room. Avoid deliriogenic medications, which may worsen any ongoing confusion. Patient should be keep awake and active during the day, with lights on in room, and ambulation as often as possible to prevent destabi lization. Sleep should be encouraged at night, with lights off in order to protect sleep/wake cycle. Patient echevarria snot been demonstrating aggression or agitation during his stay. Antipsychotic medication should be reserved only for acute agitation which threatens the safety of the patient or staff. It would be beneficial to continue to discuss with patient's sister, or other supports possibly having more direct contact with the patient. It appears patient may be close to baseline, but would suggest confirming that the patient's sister (or more appropriate support) feels comfortable with discharge plans and aftercare arrangements prior to patient leaving the hospital. Dr. Marina Raya was directly involved in review and discussion of the patient's case and participated in medical decision making regarding treatment recommendations. Risk Factors Assessment Do You Have Access To A Gun?: No CPT Code Initial Consultation: 44166 Psych History Identifying Data 84-year-old male admitted medically on 05/04/19 due to confusion, after brought to ED by police for attempting to enter apartments that were not his. Pt was diagnosed with metabolic encephalopathy, pneumonia, and sinusitis. Psychiatric consultation is requested for "acute psychosis/confusion/confabulation." Information is gathered from hospital documentation, psychiatric consultation from 2011, and the patient himself - the combination of which is considered to be reliable. Chief Complaint "I spoke with her of everything. Basically, I feel - if I had to say what I think about this - let's just say, I had the best I could get in [place]." History of Present Illness Glenn Lancaster is an 84-year-old male admitted medically on 05/04/19 due to co nfusion. It is reported that the patient would brought in by police after he had been found trying to get into the wrong apartment. It is reported by the patient's sister, that the patient is generally confused at baseline, however, severity of confusion had increased on this admission. PCP visit this morning was "normal" per patient, however, he admitted to not feeling well when he returned home. "I would have been fine if I could have just laid down for 15 or 20 minutes." Pt states he does not have significant memory of events prior to admission. Pt does admit to having difficulty eating recently, something he relates to his previous cancer treatment. Pt states, "that's why I felt weak when I went to my doctor's appointment." Pt denies confusion and disorganized thought. He shares with this provider that he had received initial care for his cancer in [place] and believed he had some of the best providers at that time. He states, he feels "no better since I got here", but denies any ongoing concerns from his point of view. Pt states he lives independently, and feels he would be able to continue doing that. Pt does state he has "18 or 19" apartments. Pt shares some stories of his time in [place] and discussion vague topics of his time in the [employer]. When asked about suicidality and homicidality, he states - "nope never, they watched me too close. They'd have never let me in if that was the case." Pt denies any previous history of depression, anxiety, bipolar disorder, and other psychosis - also denying any current concerns. Pt denies having family locally. Past Psychiatric History Previous Psych History: No previous documented psychiatric history. Psychiatric consultation from 2011 reviewed, no reported psychiatric history at that time. Current Psychiatric Diagnosis: None documented Outpatient Services: None Previous Psych Admissions: Denies Do You Have Access To A Gun?: No History of Previous Suicide Attempt: No Past Medication Trials: None known Allergies Allergy/AdvReac Type Severity Reaction Status Date / Time No Known Allergies Allergy Verified 05/04/19 16:05 Home Medications Home Medications Medication Instructions Recorded Confirmed Type Complete Prostate Health 2 tabs PO DAILY 05/04/19 05/04/19 History amlodipine [Norvasc] 10 mg PO DAILY 05/04/19 05/04/19 History lisinopril 20 mg PO DAILY 05/04/19 05/04/19 History metoprolol succinate [Toprol XL] 25 mg PO BID 05/04/19 05/04/19 History pantoprazole [Protonix] 40 mg PO DAILY 05/04/19 05/04/19 History sertraline [Zoloft] 50 mg PO DAILY 05/04/19 05/04/19 History Family History No reported family history of mental health conditions. Substance Abuse History No known history of substance abuse. 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 [employer] in [place]) Employment Status: Retired (Previously employed by the [employer] for 43 years) Marital Status: Single (some question if patient never or has been ) Number Of Children: None Beliefs That Will Affect Care: Muslim (Spiritism) History of Legal Problems: None known Psychological Trauma History Comment: Per sister, patient was captured twice during the Cold War and was a [place] POW Patient History Medical History Anxiety (Chronic) Barretts esophagus (Chronic) HTN (hypertension) (Chronic) 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 March 18, 2018 Adenocarcinoma Status post PET/CT March 14, 2018 FDG avidity in the distal esophagus Plan for EUS May 08, 2018" Surgical History History of arthroplasty of knee (Chronic) History of cystoscopy (Chronic) History of cataract surgery (Chronic) Family History Other Hypertension Stroke Social History Preferred Language: Croatian Communication Ability: Impaired Beliefs That Will Affect Care: None Current Living Situation: Alone Other Information That Helps Us Care for You: No Feels Safe at Home: Yes Safety Concerns: Feels Safe At This Time Smoking Status: Never smoker Hx Alcohol Use: No Hx Substance Use: No Physical Exam Psychiatric: Orientation: alert, oriented x 3 and cooperative Apperance: appropriately dressed (in hospital gown), appropriately groomed (though long rivera/white hair is unruly) and appeared stated age Eye Contact: good eye contact Motor Behavior: no abnormal motor movements (observed while laying in bed) Speech: + pressured speech (somewhat) Speech is somewhat over- productive and pressured. He at times does not finish sentences, but does not seem to clearly be thought blocked. Pt does speak with a stutter. Affect: euthymic affect Mood: no depressed mood and no anxious mood "I'm fine, just ready to go home." Thought Process: + tangential thought process Thought Content: reality based without delusions (possible ongoing confusion, but most of reports are verified by sister) Suicidal Thoughts: denies suicidal thoughts and denies suicidal intent Homicidal Thoughts: denies homicidal thoughts Hallucinations: no auditory hallucinations and no visual hallucinations Cognition: remote memory grossly intact and language grossly intact; + attention not intact Estimated Intelligence: + above average estimated intelligence Insight: + limited insight Judgement: + limited judgement Vital Signs (Past 24 Hours): Last Vital Signs Temp 36.7 C 05/10/19 11:44 Pulse 92 H 05/10/19 11:44 Resp 20 05/10/19 11:44 BP 151/86 H 05/10/19 11:44 Pulse Ox 94 05/10/19 11:44 Review of Systems Constitutional: denied Cardiovascular: denied Respiratory: denied Gastrointestinal: denied Neurological: denied Psychiatric: denies symptoms other than stated above Total of at least 10 systems reviewed, pertinent positives as above and in HPI. Results & Data Medications Administered Amlodipine Besylate (Norvasc) 10 mg PO DAILY [facility] Stop: 06/04/19 08:59 Last Admin: 05/10/19 07:59 Dose: Not Given Documented by: [id number] Admin: 05/09/19 08:03 Dose: 10 mg Documented by: [id number] Admin: 05/08/19 09:17 Dose: 10 mg Documented by: [id number] Admin: 05/07/19 07:13 Dose: Not Given Documented by: [id number] Admin: 05/06/19 07:39 Dose: 10 mg Documented by: [id number] Admin: 05/05/19 07:18 Dose: 10 mg Documented by: [id number] Doxycycline Hyclate (Vibramycin) 100 mg PO BID [facility] Stop: 05/13/19 21:01 Last Admin: 05/10/19 07:59 Dose: Not Given Documented by: [id number] Admin: 05/09/19 20:24 Dose: 100 mg Documented by: [id number] Gadobutrol (Gadavist 65ml) 9 ml IV ONCE PRN PRN Reason: Interaction Checking Stop: 05/11/19 12:05 Last Admin: 05/07/19 12:07 Dose: 9 ml Documented by: [id number] Heparin Sodium (Porcine) (Heparin Sodium (Porcine)) 5,000 units SQ Q8 [facility] Stop: 06/03/19 21:59 Last Admin: 05/10/19 13:31 Dose: Not Given Documented by: [id number] Admin: 05/10/19 05:09 Dose: 5,000 units Documented by: [id number] Cosigned by: [id number] Admin: 05/09/19 21:11 Dose: Not Given Documented by: [id number] Admin: 05/09/19 13:41 Dose: 5,000 units Documented by: [id number] Cosigned by: [id number] Admin: 05/09/19 05:09 Dose: 5,000 units Documented by: [id number] Cosigned by: [id number] Admin: 05/08/19 20:32 Dose: Not Given Documented by: [id number] Admin: 05/08/19 14:08 Dose: 5,000 units Documented by: [id number] Cosigned by: [id number] Admin: 05/08/19 05:06 Dose: Not Given Documented by: [id number] Admin: 05/07/19 21:23 Dose: 5,000 units Documented by: [id number] Cosigned by: [id number] Admin: 05/07/19 13:51 Dose: 5,000 units Documented by: [id number] Cosigned by: [id number] Admin: 05/07/19 06:16 Dose: 5,000 units Documented by: [id number] Cosigned by: [id number] Admin: 05/06/19 21:01 Dose: 5,000 units Documented by: [id number] Cosigned by: [id number] Admin: 05/06/19 13:41 Dose: 5,000 units Documented by: [id number] Cosigned by: [id number] Admin: 05/06/19 06:57 Dose: 5,000 units Documented by: [id number] Cosigned by: [id number] Admin: 05/05/19 20:36 Dose: 5,000 units Documented by: [id number] Cosigned by: [id number] Admin: 05/05/19 13:43 Dose: 5,000 units Documented by: [id number] Cosigned by: [id number] Admin: 05/05/19 06:11 Dose: 5,000 units Documented by: [id number] Cosigned by: [id number] Admin: 05/04/19 21:17 Dose: 5,000 units Documented by: [id number] Cosigned by: [id number] Acetaminophen (Ofirmev) 65 mls @ 200 mls/hr IV Q6H PRN PRN Reason: Fever or headache Stop: 06/05/19 05:59 Last Infusion: 05/06/19 06:57 Dose: 0 mls/hr Documented by: [id number] Admin: 05/06/19 06:21 Dose: 200 mls/hr Documented by: [id number] Metoprolol Succinate (Toprol Xl) 25 mg PO BID [facility] Stop: 06/03/19 20:59 Last Admin: 05/10/19 07:59 Dose: Not Given Documented by: [id number] Admin: 05/09/19 20:23 Dose: 25 mg Documented by: [id number] Admin: 05/09/19 08:03 Dose: 25 mg Documented by: [id number] Admin: 05/08/19 20:22 Dose: 25 mg Documented by: [id number] Admin: 05/08/19 09:18 Dose: 25 mg Documented by: [id number] Admin: 05/07/19 20:26 Dose: 25 mg Documented by: [id number] Admin: 05/07/19 07:14 Dose: Not Given Documented by: [id number] Admin: 05/06/19 21:01 Dose: 25 mg Documented by: [id number] Admin: 05/06/19 07:39 Dose: 25 mg Documented by: [id number] Admin: 05/05/19 20:38 Dose: 25 mg Documented by: [id number] Admin: 05/05/19 07:18 Dose: 25 mg Documented by: [id number] Admin: 05/04/19 21:17 Dose: 25 mg Documented by: [id number] Pantoprazole Sodium (Protonix) 40 mg PO DAILY [facility] Stop: 06/04/19 08:59 Last Admin: 05/10/19 07:59 Dose: Not Given Documented by: [id number] Admin: 05/09/19 08:03 Dose: 40 mg Documented by: [id number] Admin: 05/08/19 09:17 Dose: 40 mg Documented by: [id number] Admin: 05/07/19 07:13 Dose: Not Given Documented by: [id number] Admin: 05/06/19 07:40 Dose: 40 mg Documented by: [id number] Admin: 05/05/19 07:18 Dose: 40 mg Documented by: [id number] Potassium Phosphate (Phospha 250 Neutral 155-852-130 Mg) 2 tab PO BID [facility] Stop: 06/08/19 09:44 Last Admin: 05/10/19 07:59 Dose: Not Given Documented by: [id number] Admin: 05/09/19 20:36 Dose: Not Given Documented by: [id number] Admin: 05/09/19 10:42 Dose: 2 tab Documented by: [id number] Sertraline HCl (Zoloft) 50 mg PO DAILY [facility] Stop: 06/04/19 08:59 Last Admin: 05/10/19 07:58 Dose: Not Given Documented by: [id number] Admin: 05/09/19 08:03 Dose: 50 mg Documented by: [id number] Admin: 05/08/19 09:17 Dose: 50 mg Documented by: [id number] Admin: 05/07/19 07:14 Dose: Not Given Documented by: [id number] Admin: 05/06/19 07:39 Dose: 50 mg Documented by: [id number] Admin: 05/05/19 07:18 Dose: 50 mg Documented by: [id number]
--- NOTE | 2019-05-10 14:54 | Hospitalist Progress Note ---
Date of Service May 10, 2019 Assessment & Plan (1) Community acquired pneumonia: Right midlung opacity suspected of pneumonia Has been on intravenous Zosyn Received 1 dose of azithromycin for atypical coverage Will start doxycycline and continue Zosyn for now Doxycycline was not started yesterday on 05/05 He has had fever last night Will start vancomycin for broader coverage for the pneumonia We will check MRSA screen-negative We will continue current antibiotics-symptomatically improved IV antibiotics discontinued and only doxycycline 100 mg twice daily was continued (2) Metabolic encephalopathy: Acute confusion Likely secondary to acute sinusitis and pneumonia. Doubt any UTI CT head: No acute intracranial abnormality No change in acute confusion No change of his acute confusion Appreciate neurology evaluation and recommendation Awaiting MRI of the head with and without contrast-did not show any significant relation Discussed with neurologist-we will check thiamine level and give 500 mg of thiamine IV daily x2 days Does not show any improvement of his confusion Has been requiring more observation Denies any significant symptoms Clinical condition remains stable with ongoing psychosis but no significant aggressiveness Psychiatric consulted Information from the sister: I had a long discussion with the sister According to her he has been normal 1 week ago He is completely alert and oriented and behaving normally with 1 His esophageal cancer was treated with chemo and radiation which was finished sometime in July He was supposed to have another check on that this March but he missed that The family members noticed that confusion for the last few days She was informed about current diagnosis and ongoing treatment including neurologist evaluation and further testing She has been satisfied with the care (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 Initially was thought to be due to infection which has been treated No signs or symptoms of meningitis Has had neuro evaluation and psychiatric evaluation Given the history of CT of the esophagus and status post chemo and radiation which were finished in August of last year 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 Focal mild irregular narrowing within the mid esophagus which is likely at site of tumor shown on PET/CT of April 13, 2018. No high-grade stricture. Swallowing evaluation-no significant aspiration Will continue management plan as per speech therapist Will discuss with GI for possible EGD with ongoing problem with swallowing and history of esophageal cancer status post chemo and radiation (5) Elevated lactic acid level: Meets SIRS criteria for but does not have any sepsis CXR: right mid lung infiltrate CT HEAD: No acute intracranial abnormality. Acute right paranasal sinusitis. Repeat lactate improved to 2.3 from 2.6 Await blood culture-negative (6) JEAN CARLOS (acute kidney injury): Cr: 1.5. 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 Spoke with pt's sister - Yvette who wishes Full code Pt's sister -Yvette Bingham would like update. . (she lives in [place]) Follows with Dr Loza for routine care Discussed with the daughter Will likely need placement either in skilled care facility or dementia unit (12) Acute maxillary antritis: Noted to have right-sided paranasal sinus opacity Zosyn plus doxy will cover appropriately-Doxy was not started He will get vancomycin from today-empiric coverage for about 48 hours Has been on Zosyn and doxycycline Subjective 05/05 The patient was seen and examined in medical telemetry unit He remains confused Does not have any acute distress and denies any chest pain and/or shortness of breath, no abdominal pain nausea and or vomiting Did not have any fever and/or chills 05/06 The patient was seen and examined in medical floor He remains confused but seems to be a little bit better compared with yesterday He has significant dysphasia in the form of stuttering but denies any focal neurological deficit He was noted to have a high fever last night Denies any chest pain, any cough, palpitation, abdominal pain, nausea no vomiting, headache, blurred vision, or any weakness involving any side 05/07 The patient was seen and examined the medical telemetry unit He remains confused Denies any acute symptoms 05/08 Patient was seen and examined in medical telemetry unit He remains confused without hallucination but has confabulation Denies any acute symptoms 05/09 The patient was seen and examined in medical telemetry unit He remains confused Denies any significant symptoms 05/10 The patient was seen and examined in medical telemetry unit He has been totally confused and remains confused Not aggressive Denies any significant medical symptom Review of Systems Review of Systems: Unobtainable due to cognitive status Physical Exam Physical Exam: Lying in bed comfortably Constitutional: well developed and well nourished; no acute distress and not ill appearing Eyes: PERRL, conjunctivae normal, anicteric sclerae ENMT: external ear and nose normal, oropharynx normal Neck: trachea midline, no thyromegaly Respiratory: normal respiratory effort; no respiratory distress Auscultation: lungs clear to auscultation bilaterally Cardiovascular: Rate/Rhythm: regular rate and regular rhythm Heart Sounds: no murmur Gastrointestinal (Abdomen): Inspection/Auscultation: abdomen normal to inspection and normal bowel sounds Percussion/Palpation: abdomen soft Musculoskeletal: No acute arthritis in any joints Skin: no rashes, warm and dry Neurologic: moves all extremities Speech / Cognition: + abnormal speech Psychiatric: Insight: + poor insight Judgement: + limited judgement Lymphatic: no cervical or axillary lymphadenopathy Results & Data Vital Signs (Past 12 Hours) Vital Signs Temp Pulse Pulse Resp BP BP Pulse Ox 05/10/19 11:44 36.7 C 92 H 20 151/86 H 94 05/10/19 07:32 92 H 05/10/19 06:28 36.6 C 85 18 133/80 93 05/10/19 04:53 36.4 C L 89 18 127/76 94 Medications Administered Current Inpatient Medications Acetaminophen (Tylenol) 650 mg PO Q4H PRN PRN Reason: Pain or Fever Stop: 06/03/19 17:53 Albuterol (Duoneb) 3 ml NEB Q4H PRN PRN Reason: Shortness Of Breath Or Wheezing Stop: 06/05/19 05:59 Amlodipine Besylate (Norvasc) 10 mg PO DAILY [facility] Stop: 06/04/19 08:59 Last Admin: 05/10/19 07:59 Dose: Not Given Documented by: Doxycycline Hyclate (Vibramycin) 100 mg PO BID [facility] Stop: 05/13/19 21:01 Last Admin: 05/10/19 07:59 Dose: Not Given Documented by: Gadobutrol (Gadavist 65ml) 9 ml IV ONCE PRN PRN Reason: Interaction Checking Stop: 05/11/19 12:05 Last Admin: 05/07/19 12:07 Dose: 9 ml Documented by: Heparin Sodium (Porcine) (Heparin Sodium (Porcine)) 5,000 units SQ Q8 [facility] Stop: 06/03/19 21:59 Last Admin: 05/10/19 13:31 Dose: Not Given Documented by: Acetaminophen (Ofirmev) 65 mls @ 200 mls/hr IV Q6H PRN PRN Reason: Fever or headache Stop: 06/05/19 05:59 Last Infusion: 05/06/19 06:57 Dose: Infused Documented by: Metoprolol Succinate (Toprol Xl) 25 mg PO BID [facility] Stop: 06/03/19 20:59 Last Admin: 05/10/19 07:59 Dose: Not Given Documented by: Pantoprazole Sodium (Protonix) 40 mg PO DAILY [facility] Stop: 06/04/19 08:59 Last Admin: 05/10/19 07:59 Dose: Not Given Documented by: Potassium Phosphate (Phospha 250 Neutral 155-852-130 Mg) 2 tab PO BID [facility] Stop: 06/08/19 09:44 Last Admin: 05/10/19 07:59 Dose: Not Given Documented by: Sertraline HCl (Zoloft) 50 mg PO DAILY [facility] Stop: 06/04/19 08:59 Last Admin: 05/10/19 07:58 Dose: Not Given Documented by: (1) Community acquired pneumonia Laterality: right Lung location: upper lobe of lung Qualified Code(s): J18.1 - Lobar pneumonia, unspecified organism
[2019-05-11] MEDS: HEPARIN SOD 5,000 UNIT/0.5 ML VIAL SQ SCH ×3 (05:13→21:27)
[2019-05-11] MEDS: PANTOprazole 40 MG TAB PO SCH (08:04)
[2019-05-11] MEDS: METOPROLOL SUCC 25MG EXT REL TAB PO SCH ×2 (08:04→21:27)
[2019-05-11] MEDS: SERTRALINE HCL 50 MG TABLET PO SCH (08:04)
[2019-05-11] MEDS: DOXYCYCLINE HYCLATE 100 MG CAP PO SCH ×2 (08:04→21:27)
[2019-05-11] MEDS: POT PHOSPHATE MONOBASIC W/ SOD TAB PO SCH ×2 (08:04→21:27)
[2019-05-11] MEDS: AMLODIPINE BESYLATE 5 MG TAB PO SCH (08:04)
[2019-05-11 08:24] LABS: BUN Creatinine Ratio 28.7 (10-20); Creatinine Clr Calc Pharmacy 86.4 ml/min; Est GFR (African American) 98.5; Magnesium 2.3 mg/dl (1.8-2.4)
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
[2019-05-12] MEDS: HEPARIN SOD 5,000 UNIT/0.5 ML VIAL SQ SCH ×3 (05:50→21:00)
[2019-05-12] MEDS: AMLODIPINE BESYLATE 5 MG TAB PO SCH (08:25)
[2019-05-12] MEDS: METOPROLOL SUCC 25MG EXT REL TAB PO SCH ×2 (08:25→20:52)
[2019-05-12] MEDS: SERTRALINE HCL 50 MG TABLET PO SCH (08:25)
[2019-05-12] MEDS: PANTOprazole 40 MG TAB PO SCH (08:25)
[2019-05-12] MEDS: POT PHOSPHATE MONOBASIC W/ SOD TAB PO SCH (08:51)
[2019-05-12] MEDS: DOXYCYCLINE HYCLATE 100 MG CAP PO SCH ×2 (08:51→20:53)
[2019-05-12 16:43] LABS: Potassium 3.3 mmol/L (3.5-5.1)
[2019-05-12 16:49] LABS: Phosphorus 3.2 mg/dl (2.5-4.9)
--- NOTE | 2019-05-12 17:38 | Hospitalist Progress Note ---
Date of Service May 12, 2019 Assessment & Plan (1) Metabolic encephalopathy: Presented with acute confusion Likely secondary to acute sinusitis and pneumonia. CT head: No acute intracranial abnormality Patient's confusion persisted during admission Neurologist was consulted MRI of the head with and without contrast-did not show any significant relation Discussed with neurologist- 500 mg of thiamine IV daily x2 days Patient still persisted Psychiatry service consulted May be accompanied by delirium Today, patient seems to be improving, calm, cooperative Monitor closely Continue PT and OT evaluations (2) Community acquired pneumonia: Right midlung opacity suspected of pneumonia Received vancomycin, Zosyn Now on oral doxycycline Afebrile Improved overall (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 Focal mild irregular narrowing within the mid esophagus which is likely at site of tumor shown on PET/CT of April 13, 2018. No high-grade stricture. Swallowing evaluation-no significant aspiration Will continue management plan as per speech therapist Patient denies issues with swallowing today we will continue to monitor If without improvement, will consult GI (5) Elevated lactic acid level: Meets SIRS criteria for but does not have any sepsis CXR: right mid lung infiltrate CT HEAD: No acute intracranial abnormality. Acute right paranasal sinusitis. Repeat lactate improved to 2.3 from 2.6 Cultures negative (6) JEAN CARLOS (acute kidney injury): Cr: 1.5. 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 Spoke with pt's sister - Yvette who wishes Full code Pt's sister -Yvette Bingham would like update. . (she lives in [place]) Follows with Dr Loza for routine care Will likely need placement either in skilled care facility or dementia unit (12) Acute maxillary antritis: Noted to have right-sided paranasal sinus opacity Zosyn plus doxy will cover appropriately-Doxy was not started He will get vancomycin from today-empiric coverage for about 48 hours Has been on Zosyn and doxycycline Only on doxycycline for now Subjective Follow-up for altered mental status Seen sitting up in bed, comfortable, not in distress Pleasant, in good spirits Oriented x2, answers most questions appropriately, but seems to still have tangential thinking, and confusion on most topics states he feels improved overall Denies chest pain, shortness of breath, headache, dizziness, palpitations, abdominal pain, changes with urination or bowel movements Denies any symptoms Review of Systems Review of Systems: All systems reviewed & are unremarkable except as noted in HPI & below Physical Exam Physical Exam: General- oriented x 2, not in distress, speaks in sentences with no effort or accessory muscle use Head- atraumatic Eyes- PERRL, EOMI, anicteric ENT- oropharynx clear Neck- supple, no JVD, no adenopathy, no thyromegaly; carotids +2/2, no bruits appreciated Lungs- clear to auscultation bilaterally, no rales/wheezes Heart- normal rate, regular rhythm; no murmur, no gallop, no rub appreciated Abdomen- normal bowel sounds, nondistended, soft, nontender, no masses or hepatosplenomegaly Extremities- no pretibial edema, no calf tenderness; peripheral pulses intact Neuro- alert, oriented x 2; CN 2-12 grossly intact; motor 5/5 bilaterally;sensation 100% on all extremities; no other gross focal neurologic deficits Skin- warm & dry Results & Data Vital Signs (Past 12 Hours) Vital Signs Temp Pulse Pulse Resp BP Pulse Ox 05/12/19 17:06 88 05/12/19 15:03 36.5 C 78 18 111/73 94 05/12/19 11:29 36.2 C L 81 16 111/68 93 05/12/19 11:24 77 05/12/19 07:36 77 08/14/19 07:11 36.6 C 77 18 148/82 H 92 Laboratory Results Laboratory Results - last 24 hr 05/12/19 15:11 Potassium 3.3 L Phosphorus 3.2 (1) Community acquired pneumonia Laterality: right Lung location: upper lobe of lung Qualified Code(s): J18.1 - Lobar pneumonia, unspecified organism
[2019-05-12] MEDS: POTASSIUM CHLORIDE 10 MEQ TABCR PO SCH (20:54)
[2019-05-13] MEDS: HEPARIN SOD 5,000 UNIT/0.5 ML VIAL SQ SCH ×3 (06:27→21:08)
[2019-05-13] MEDS: POTASSIUM CHLORIDE 10 MEQ TABCR PO SCH ×2 (08:20→21:08)
[2019-05-13] MEDS: METOPROLOL SUCC 25MG EXT REL TAB PO SCH ×2 (08:21→21:11)
[2019-05-13] MEDS: PANTOprazole 40 MG TAB PO SCH (08:21)
[2019-05-13] MEDS: AMLODIPINE BESYLATE 5 MG TAB PO SCH (08:21)
[2019-05-13] MEDS: DOXYCYCLINE HYCLATE 100 MG CAP PO SCH ×2 (08:21→21:10)
[2019-05-13] MEDS: SERTRALINE HCL 50 MG TABLET PO SCH (08:21)
--- NOTE | 2019-05-13 16:25 | Hospitalist Progress Note ---
Date of Service May 13, 2019 Assessment & Plan (1) Metabolic encephalopathy: Likely secondary to acute sinusitis and pneumonia, With Delirium Presented with acute confusion CT head: No acute intracranial abnormality Patient's confusion persisted during admission Neurologist was consulted MRI of the head with and without contrast-did not show any significant relation Discussed with neurologist- 500 mg of thiamine IV daily x2 days Patient still persisted Psychiatry service consulted May be accompanied by delirium today, remains calm, cooperative, still with some confusion, needs re- orientation Continue PT and OT evaluations (2) Community acquired pneumonia: Right midlung opacity suspected of pneumonia Received vancomycin, Zosyn transitioned to oral doxycycline Afebrile Improved overall has completed antibiotic course (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 Focal mild irregular narrowing within the mid esophagus which is likely at site of tumor shown on PET/CT of April 13, 2018. No high-grade stricture. Swallowing evaluation-no significant aspiration Speech therapist consulted- continue Pureed diet Patient denies issues with swallowing monitor closely - continue outpatient ff up (5) Elevated lactic acid level: Meets SIRS criteria for but does not have any sepsis CXR: right mid lung infiltrate CT HEAD: No acute intracranial abnormality. Acute right paranasal sinusitis. Repeat lactate improved to 2.3 from 2.6 Cultures negative (6) JEAN CARLOS (acute kidney injury): Cr: 1.5. 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 Spoke with pt's sister - Yvette who wishes Full code Pt's sister -Yvette Bingham would like update. . (she lives in [place]) Follows with Dr Loza for routine care plan for discharge to SNf tomorrow (12) Acute maxillary antritis: Noted to have right-sided paranasal sinus opacity Zosyn plus doxy will cover appropriately-Doxy was not started He will get vancomycin from today-empiric coverage for about 48 hours Has been on Zosyn and doxycycline Only on doxycycline for now Subjective ff up for altered mental status seen resting in bed, sleeping but easily rousable oriented x 1- 2, tangential thoughts , needs re-orientation calm, cooperative denies any symptoms denies problems with swallowing Review of Systems Review of Systems: All systems reviewed & are unremarkable except as noted in HPI & below Physical Exam Physical Exam: General- oriented x 1-2, not in distress, speaks in sentences with no effort or accessory muscle use Eyes- anicteric Neck- no JVD Lungs- clear BS BL no rales Heart- normal rate, regular rhythm; no murmurs Abdomen- normal bowel sounds, nondistended, soft, nontender Extremities- no pretibial edema, no calf tenderness Neuro- alert, oriented x 3; no gross focal neurologic deficits Skin- warm & dry Results & Data Vital Signs (Past 12 Hours) Vital Signs Temp Pulse Pulse Resp BP Pulse Ox 05/13/19 15:20 36.6 C 85 18 133/72 95 05/13/19 12:34 71 05/13/19 11:27 36.4 C L 81 18 108/71 95 05/13/19 07:34 71 05/13/19 07:25 36.6 C 77 18 126/76 92 Laboratory Results Laboratory Results - last 24 hr 05/12/19 15:11 Potassium 3.3 L Phosphorus 3.2 (1) Community acquired pneumonia Laterality: right Lung location: upper lobe of lung Qualified Code(s): J18.1 - Lobar pneumonia, unspecified organism
--- NOTE | 2019-05-13 17:53 | Neurology Progress Note ---
Date of Service May 13, 2019 Assessment & Plan (1) Encephalopathy: An 84 year old male admitted with pneumonia with history of esophageal cancer. Neurology following for confusion and tangential thoughts. - Recommend to continue Thiamine. - I do not believe this patient has a paraneoplastic autoimmune encephalitis - Outpatient Neuropsychiatric testing Please call with any further questions or concerns. Subjective Patient was seen and examined. Pleasantly resting in bed. Spoke at length about his legs and also spoke about his sister's involvement with the governor in [place]. He denies any complaint at this time Physical Exam Physical Exam: Physical Exam: Constitutional: appears state dage Ears, Nose, Mouth and Throat: mucous membranes moist, no injection and skin normal, eyes normal Cardiovascular: normal pulse Respiratory: non labored Musculoskeletal: no peripheral edema Skin: no rash Eyes: extraocular muscles intact (EOMI) and pupils equal, round and reactive to light (PERRL) NEUROLOGIC EXAMINATION: Mental status: Alert and interactive Oriented to person and place Speech fluent and fast, at times stuttering Cranial Nerves smile eye brow raise symmetric Reflexes: Deep tendon reflexes were symmetrical and graded 2/5. Sensory: intact to light touch Coordination: no tremor or dyskinesias Gait/Stance: Posture normal. sitting up in bed Motor: Negative for pronator drift of out stretched arms with eyes closed. Strength: No focal weakness Results & Data Vital Signs (Past 12 Hours) Vital Signs Temp Pulse Pulse Resp BP Pulse Ox 05/13/19 16:00 78 05/13/19 15:20 36.6 C 85 18 133/72 95 05/13/19 12:34 71 05/13/19 11:27 36.4 C L 81 18 108/71 95 05/13/19 07:34 71 05/13/19 07:25 36.6 C 77 18 126/76 92
[2019-05-14] MEDS: AMLODIPINE BESYLATE 5 MG TAB PO SCH (08:12)
[2019-05-14] MEDS: HEPARIN SOD 5,000 UNIT/0.5 ML VIAL SQ SCH (08:12)
[2019-05-14] MEDS: PANTOprazole 40 MG TAB PO SCH (08:12)
[2019-05-14] MEDS: POTASSIUM CHLORIDE 10 MEQ TABCR PO SCH (08:12)
[2019-05-14] MEDS: SERTRALINE HCL 50 MG TABLET PO SCH (08:12)
[2019-05-14] MEDS: METOPROLOL SUCC 25MG EXT REL TAB PO SCH (08:13)
--- NOTE | 2019-05-14 10:14 | Hospitalist Progress Note ---
Date of Service May 14, 2019 Assessment & Plan (1) Metabolic encephalopathy: Likely secondary to Pneumonia, Acute Sinusitis, With Delirium Presented with acute confusion CT head: No acute intracranial abnormality treated with IV antibiotics Patient's confusion persisted during admission Neurologist was consulted MRI of the head with and without contrast-did not show any significant relation Discussed with neurologist- 500 mg of thiamine IV daily x2 days Patient's confusion still persisted Psychiatry service consulted [place] to be accompanied by delirium patient gradually improving now calm, cooperative, still with some confusion, needs re-orientation Continue PT and OT Discussed with neurologist, Nothing to suggest definitely that he has paraneoplastic syndrome at this time (2) Community acquired pneumonia: Right midlung opacity suspected of pneumonia Received vancomycin, Zosyn transitioned to oral doxycycline Afebrile Improved overall has completed antibiotic course (3) Dysphagia: Speech evaluation has been requested Barium swallow-Technically difficult exam. Focal mild irregular narrowing within the mid esophagus which is likely at site of tumor shown on PET/CT of April 13, 2018. No high-grade stricture. Swallowing evaluation-no significant aspiration Speech therapist consulted- #1 slippery pured diet #2 patient needs to be supervised with all intake. Frequent checks #3 consider EGD to better investigate esophageal integrity and patency #4 AIRLINE RADIO OPERATOR services will follow for results of GI consultation to determine readiness for diet upgrade #5 consult registered dietitian for input regarding use of supplements Alternate solids and liquids Supervised meals Fully alert and upright Give meds in a carrier Single bites/small sips/slow rate Alternate solids and liquids Head of bed 30 degrees all the time Slippery diet Up with meals +30 minutes Patient denies issues with swallowing at this time, tolerating diet well monitor closely -Outpatient GI follow-up (4) Elevated lactic acid level: Meets SIRS criteria for but does not have any sepsis CXR: right mid lung infiltrate CT HEAD: No acute intracranial abnormality. Acute right paranasal sinusitis. Repeat lactate improved to 2.3 from 2.6 Cultures negative (5) JEAN CARLOS (acute kidney injury): Cr: 1.5. 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 Spoke with pt's sister - Yvette who wishes Full code Follows with Dr Loza for routine care plan for discharge to [facility] today Follow-up with Dr. Loza within 1 week Follow-up with neurology in 2 weeks Follow-up with GI in 1 to 2 weeks (11) Acute maxillary antritis: Noted to have right-sided paranasal sinus opacity Zosyn plus doxy will cover appropriately-Doxy was not started He will get vancomycin from today-empiric coverage for about 48 hours Has been on Zosyn and doxycycline Only on doxycycline for now Subjective ff up for altered mental status seen resting in bed, in good spirits oriented x 2- with some cueing pleasant, cooperative, calm seems less tangential with his thoughts today denies chest pain, dyspnea, dizziness, palpitation no other symptoms Review of Systems Review of Systems: All systems reviewed & are unremarkable except as noted in HPI & below Physical Exam Physical Exam: General- oriented x 2, not in distress, speaks in sentences with no effort or accessory muscle use Eyes- anicteric Neck- no JVD Lungs- clear BS BL no rales/wheezing Heart- normal rate, regular rhythm; no murmurs Abdomen- normal bowel sounds, nondistended, soft, nontender Extremities- no pretibial edema, no calf tenderness Neuro- alert, oriented x2; no gross focal neurologic deficits Skin- warm & dry Results & Data Vital Signs (Past 12 Hours) Vital Signs Temp Pulse Pulse Resp BP BP Pulse Ox 05/14/19 10:04 36.7 C 75 16 169/87 H 113/66 94 05/14/19 10:02 76 05/14/19 07:15 36.7 C 75 16 113/66 94 05/14/19 04:00 37 C 76 18 118/72 95 05/14/19 00:34 76 05/13/19 23:56 36.8 C 76 20 122/73 91 (1) Community acquired pneumonia Laterality: right Lung location: upper lobe of lung Qualified Code(s): J18.1 - Lobar pneumonia, unspecified organism
--- NOTE | 2019-05-14 10:39 | Discharge Summary ---
Date of Service May 14, 2019 Admission HPI Per Admitting Provider Glenn Lancaster is an 84-year-old male admitted medically on 05/04/19 due to confusion. It is reported that the patient would brought in by police after he had been found trying to get into the wrong apartment. It is reported by the patient's sister, that the patient is generally confused at baseline, however, severity of confusion had increased on this admission. PCP visit this morning was "normal" per patient, however, he admitted to not feeling well when he returned home. "I would have been fine if I could have just laid down for 15 or 20 minutes." Pt states he does not have significant memory of events prior to admission. Pt does admit to having difficulty eating recently, something he relates to his previous cancer treatment. Pt states, "that's why I felt weak when I went to my doctor's appointment." Pt denies confusion and disorganized thought. He shares with this provider that he had received initial care for his cancer in [place] and believed he had some of the best providers at that time. He states, he feels "no better since I got here", but denies any ongoing concerns from his point of view. Pt states he lives independently, and feels he would be able to continue doing that. Pt does state he has "18 or 19" apartments. Pt shares some stories of his time in [place] and discussion vague topics of his time in the [place]. When asked about suicidality and homicidality, he states - "nope never, they watched me too close. They'd have never let me in if that was the case." Pt denies any previous history of depression, anxiety, bipolar disorder, and other psychosis - also denying any current concerns. Pt denies having family locally. Admission Exam Per Admitting Provider General: no acute distress, however anxious WDWN Head: normocephalic, atraumatic Eyes: PERRL, EOM's intact, conjunctiva non-injected, anicteric ENT: normal inspection external ears, nose, pharynx without edema or erythema, mucous membranes moist Neck: supple, trachea midline Lungs: no respiratory distress, diminished right lung, otherwise clear CV: RRR, no murmur, no JVD, no pretibial edema; chest: scar noted to right upper chest Abd: normal BS, soft, non-tender Ext: no cyanosis, no calf tenderness Neuro: Alert, oriented to person, easily distracted and talks off subject, anxious appearing Skin: warm, dry Principal Diagnosis Acute encephalopathy, likely secondary to underlying pneumonia, acute sinusitis, with delirium Discharge Exam General- oriented x 2, not in distress, speaks in sentences with no effort or accessory muscle use Eyes- anicteric Neck- no JVD Lungs- clear BS BL no rales/wheezing Heart- normal rate, regular rhythm; no murmurs Abdomen- normal bowel sounds, nondistended, soft, nontender Extremities- no pretibial edema, no calf tenderness Neuro- alert, oriented x2; no gross focal neurologic deficits Skin- warm & dry Discharge Data Allergies Allergy/AdvReac Type Severity Reaction Status Date / Time No Known Allergies Allergy Verified 05/04/19 16:05 Consultations 05/04/19 15:41 ED Decision to Admit Stat 05/04/19 17:54 Consult Case Management - Discharge Planning Routine 05/06/19 09:12 Consult Neurology Routine 05/10/19 10:34 Consult Psychiatry Routine Ordered Studies 05/04/19 14:03 CT head/brain wo con Stat Comparison: None. Findings: Large fluid level within the right maxillary sinus resulting in near complete opacification. There is also a small fluid level within the right sphenoid sinus. The mastoid air cells are clear. The calvarium and skull base are intact. The ventricles and sulci are within normal limits. There is no mass, hematoma, midline shift, or acute infarct. Impression: No acute intracranial abnormality. Acute right paranasal sinusitis as described above. Chest x-ray April 2019 XR chest 1V portable CLINICAL HISTORY: Shortness of breath. COMPARISON STUDY: Chest radiograph May 04, 2019. FINDINGS: Dense right upper lobe consolidation has progressed. Right lower lung consolidation has also progressed. There is mild left basilar opacity. There is no pneumothorax or pleural effusion. No cavitation is identified. Cardiomediastinal silhouette is stable. Scoliosis of the thoracolumbar spine is incidentally noted. IMPRESSION: Progression of dense right upper lobe consolidation and right basilar consolidation which suggests multifocal pneumonia. Mild left lower lung airspace opacity. Radiographic follow-up to ensure resolution is recommended. 05/07/19 09:33 MR brain wo/w con Routine FINDINGS: Large [id number] refuse driver localizer images demonstrate no gross extracranial abnormality. There is no restricted diffusion to suggest acute or subacute infarction. Midline structures including the corpus callosum, brainstem, optic chiasm, pituitary and pineal glands appear unremarkable on the sagittal T1 series. No cerebellar tonsillar herniation. Degenerative changes noted about the imaged cervical spine. No acute intracranial hemorrhage, midline shift, abnormal extra axial collection, hydrocephalus or intracranial mass. There is no abnormal intra-axial or extra-axial enhancement identified. Age-related involutional changes with mild ex vacuo ventriculomegaly. There are a few patchy areas of mildly increased T2/FLAIR signal abnormalities about the periventricular and subcortical white matter of the cerebral hemispheres bilaterally, nonspecific however suggestive of probable minimal chronic microvascular ischemic disease. The major flow voids at the level of the skull base appear patent. Mastoid air cells are clear. T2 hypointense layering debris about the right maxillary sinus with mucoperiosteal thickening and large air-fluid level compatible with acute on chronic disease. Mild mucosal thickening about the ethmoid air cells and frontal sinuses with moderate air-fluid level of the right sphenoid sinus. Skull and soft tissues are unremarkable. Prior bilateral cataract repair. IMPRESSION: 1. No acute intracranial abnormality, specifically no acute or subacute infarction. 2. No abnormal enhancement. 3. Age-related involutional changes with suggestion of minimal chronic microvascular ischemic disease. 4. Acute on chronic sinus disease. 05/07/19 10:30 FL barium swallow Routine INDINGS: This exam was technically difficult due to difficulty positioning. Therefore, mucosal detail is diminished. However, no high-grade stricture is noted. There is focal mild irregular narrowing within the mid esophagus. This may be a site of tumor shown on PET/CT of April 13, 2018. Contrast passed into the stomach. IMPRESSION: Technically difficult exam. Focal mild irregular narrowing within the mid esophagus which is likely at site of tumor shown on PET/CT of April 13, 2018. No high-grade stricture. 05/07/19 11:00 FL video swallow Routine Hospital Course (1) Metabolic encephalopathy: Likely secondary to Pneumonia, Acute Sinusitis, With Delirium Presented with acute confusion CT head: No acute intracranial abnormality treated with IV antibiotics Patient's confusion persisted during admission Neurologist was consulted MRI of the head with and without contrast-did not show any significant relation Discussed with neurologist- 500 mg of thiamine IV daily x2 days Patient's confusion still persisted Psychiatry service consulted [place] to be accompanied by delirium patient gradually improving now calm, cooperative, still with some confusion, needs re-orientation Continue PT and OT Discussed with neurologist, Nothing to suggest definitely that he has paraneoplastic syndrome at this time (2) Community acquired pneumonia: Right midlung opacity suspected of pneumonia Chest x-ray:Progression of dense right upper lobe consolidation and right basilar consolidation which suggests multifocal pneumonia. Mild left lower lung airspace opacity. Radiographic follow-up to ensure resolution is recommended. Received vancomycin, Zosyn transitioned to oral doxycycline Afebrile Improved overall has completed antibiotic course Repeat Chest x-ray as outpatient to ensure resolution (3) Acute sinusitis: Has received Vanco, Zosyn, doxycycline (4) Dysphagia: Speech evaluation has been requested Barium swallow-Technically difficult exam. Focal mild irregular narrowing within the mid esophagus which is likely at site of tumor shown on PET/CT of April 13, 2018. No high-grade stricture. Swallowing evaluation-no significant aspiration Speech therapist consulted- #1 slippery pured diet #2 patient needs to be supervised with all intake. Frequent checks #3 consider EGD to better investigate esophageal integrity and patency #4 DIESEL TRUCK MECHANIC services will follow for results of GI consultation to determine readiness for diet upgrade #5 consult registered dietitian for input regarding use of supplements Alternate solids and liquids Supervised meals Fully alert and upright Give meds in a carrier Single bites/small sips/slow rate Alternate solids and liquids Head of bed 30 degrees all the time Slippery diet Up with meals +30 minutes Patient denies issues with swallowing at this time, tolerating diet well monitor closely -Outpatient GI follow-up (5) Elevated lactic acid level: Meets SIRS criteria for but does not have any sepsis CXR: right mid lung infiltrate CT HEAD: No acute intracranial abnormality. Acute right paranasal sinusitis. Repeat lactate improved to 2.3 from 2.6 Cultures negative (6) JEAN CARLOS (acute kidney injury): Cr: 1.5. 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 Spoke with pt's sister - Yvette who wishes Full code Follows with Dr Loza for routine care plan for discharge to [facility] Follow-up with Dr. Loza on Saturday, May 18, 2019 at 1:25 PM Follow-up with neurology in 2 weeks Follow-up with GI in 1 to 2 weeks Total Time Total Time Spent Total Time Spent (In Minutes): 50 minutes Discharge Plan Discharge Items Patient Disposition: Transfer [facility] Reason For Visit: PNEUMONIA Discharge Diagnosis: Acute metabolic encephalopathy, delirium, likely secondary to underlying pneumonia and acute sinusitis Discharge Goals: Diagnostic testing and Therapeutic intervention Activity: As commented below Activity Comment: Continue PT/OT evaluations, fall precautions, always use walker Driving/Machine Use Comment: No driving Non-emergency contact: Primary Care Provider Call non-emergency contact if: you have any medication questions, your symptoms worsen and you have a fever Follow-up/Referrals: Mumtaz Loza MD [Primary Care Provider] - 05/18/19 1:25 pm Diet: Heart Healthy and See below Diet Comment: Pured diet Addtl Provider Instructions: Refer to accompanying discharge summary for further details. Aspiration precautions. Therapy recommendations: #1 slippery pured diet #2 patient needs to be supervised with all intake. Frequent checks #3 consider EGD to better investigate esophageal integrity and patency #4 DIESEL TRUCK MECHANIC services will follow for results of GI consultation to determine readiness for diet upgrade #5 consult registered dietitian for input regarding use of supplements Alternate solids and liquids Supervised meals Fully alert and upright Give meds in a carrier Single bites/small sips/slow rate Alternate solids and liquids Head of bed 30 degrees all the time Slippery diet Up with meals +30 minutes Follow-up with primary care physician Dr. Loza on Saturday May 18, 2019 at 1:25 PM. Follow-up with [facility] neurologist Dr. Mckeon in 1 to 2 weeks. Follow-up with signing teacher in 1 to 2 weeks. Prescriptions: Continued amlodipine [Norvasc] 10 mg tablet 10 mg PO DAILY RF: 0 pantoprazole [Protonix] 40 mg tablet,delayed release (DR/EC) 40 mg PO DAILY RF: 0 metoprolol succinate [Toprol XL] 25 mg tablet extended release 24 hr 25 mg PO BID RF: 0 sertraline [Zoloft] 50 mg tablet 50 mg PO DAILY RF: 0 Complete Prostate Health 2 tabs PO DAILY RF: 0 Discontinued lisinopril 20 mg tablet 20 mg PO DAILY RF: 0 Stand-Alone Forms: [facility] Discharge Orders: Discharge Order (Routine); Ordered 05/14/19 Ordered By: Fish Rubio Skilled Items Patient informed of condition?: Yes DNR: No Discharge Level of Care: Skilled Communicable Disease: No Discharge Prognosis: Improving Admission Data Admit Date/Time: 05/04/19 16:27 Attending Provider: Fish Rubio Admit Provider: Chad Anaya Primary Care Provider: Mumtaz Loza Other Providers: Chad Anaya ; Klarissa Swanson ; Bao Mckeon ; Marina Raya Manabendra Service: Telemetry Medical
== END 2019-05-14 12:13 | DRG 193 ==
LOC: ED 14:01 → SUATTDRO 16:27 → 2N 16:27

== ENCOUNTER 2024-04-09 15:33 | Inpatient (IN) ==
--- NOTE | 2024-04-09 15:44 | ED Triage Note ---
Date of Service April 09, 2024 Provider in Triage Author: Melvin Chandler History of Present Illness This patient was briefly evaluated while in triage. An abbreviated physical exam was performed. This patient is a 89-year-old Male who presents to the ED for evaluation history per niece, was having trouble hearing, confusion (worsening x 1 month) was seen by Dr. Cornelius at [facility] and sent here Calcium level high on labs today Physical Exam GENERAL: NAD, [place] CARDIOVASCULAR: RRR RESPIRATORY: CTA ABDOMEN: BS x 4. Nontender to palpation. Initial orders for labs and / or imaging were placed and patient was placed in the waiting area until a bed is available. Please see further documentation for the full ED course.
--- NOTE | 2024-04-09 16:55 | CT Scan Report ---
CT SCAN OF THE BRAIN WITHOUT IV CONTRAST CLINICAL HISTORY: Change in mental status. COMPARISON STUDY: CT of the brain dated 09/30/2023 TECHNIQUE: Unenhanced axial CT scan of the brain is performed from the vertex to the skull base. A do se lowering technique was utilized adhering to the principles of ALARA. CT DOSE: 1687.29 mGy.cm FINDINGS: Brain parenchyma: There is age-related involutional change noting mild subcortical and periventricula r microangiopathic disease. There is no hemorrhage, mass effect, or evidence of acute territorial isc hemia by CT criteria. Cisneros-white matter differentiation is preserved. No extra-axial fluid collection is seen. Ventricles, sulci, cisterns: Prominent secondary to involutional change. Intracranial vasculature: There is atherosclerotic calcification of the cavernous carotid and vertebr al arteries. Calvarium: Unremarkable. Sinuses and mastoids: There is mild mucosal thickening in the right sphenoid sinus. The remaining par anasal sinuses are clear. The mastoid air cells are well pneumatized. Orbits: The bony orbits are grossly intact. There are bilateral ocular lens implants. IMPRESSION: There is no hemorrhage, mass effect, or evidence of acute territorial ischemia by CT rasheed bonds. ACT 112: Negative or not required by law. Electronically signed by: Kimani Parra M.D. 04/09/2024 4:53 PM
[2024-04-09 17:28] LABS: Basophils # (auto) 0.04 K/uL (0.00-0.20); Basophils % (auto) 0.5 %; Eosinophils # (auto) 0.02 K/uL (0.00-0.50); Eosinophils % (auto) 0.3 %; Hematocrit (blood only) 43.4 % (42.0-52.0); Hemoglobin 14.2 g/dl (14.0-18.0); Immature Granulocytes # (auto) 0.01 K/uL (0.01-0.20); Immature Granulocytes % (auto) 0.1 %; Lymphocytes # (auto) 1.49 K/uL (1.20-3.40); Lymphocytes % (auto) 20.2 %; Mean Corpuscular Hemoglobin 30.3 pg (25.0-34.0); Mean Corpuscular Hgb Conc 32.7 g/dL (32.0-36.0); Mean Corpuscular Volume 92.5 fL (80.0-100.0); Mean Platelet Volume 8.9 fL (9.4-12.4); Monocytes # (auto) 0.84 K/uL (0.11-0.59); Monocytes % (auto) 11.4 %; Neutrophils # (auto) 4.99 K/uL (1.40-6.50); Neutrophils % (auto) 67.5 %; Platelet Count 181 K/uL (130-400); RDW Coefficient of Variation 13.2 % (11.5-14.5); Red Blood Count 4.69 M/uL (4.70-6.10); White Blood Count 7.39 K/ul (4.8-10.8)
[2024-04-09 17:38] LABS: Albumin Globulin Ratio 1.4 (0.9-2); Albumin Level 4.5 gm/dl (3.4-5.0); BUN Creatinine Ratio 26.8 (10-20); Bilirubin,Total 0.7 mg/dl (0.2-1.0); Calcium 10.8 mg/dl (8.6-10.3); Creatinine Clr Calc Pharmacy 26.3 ml/min; Est GFR (African American) 42.9 ml/min; Globulin 3.3 gm/dl (2.5-4.0); Magnesium 1.9 mg/dl (1.7-2.4); Potassium 3.7 mmol/L (3.5-5.1); Total Protein 7.8 gm/dl (6.0-8.3)
--- NOTE | 2024-04-09 17:39 | Emergency Department Note ---
Impression & Plan Bloody vomitus, History of esophageal cancer, Hypercalcemia, Hard of hearing, JEAN CARLOS (acute kidney injury) ED Provider Note NAME: CONNOR TRIPP AGE: 89 SEX: M : 1935 ARRIVES VIA: Walk-In INFORMANT: Patient ED PROVIDER(S): Berny Wilson DO CHIEF COMPLAINT: Elevated calcium HPI: Patient is an 89-year-old male with a past medical history of esophageal cancer, metabolic encephalopathy who presents to the ER for elevated calcium. Niece provides majority of the history as he is extremely hard of hearing. Patient denies any new headache, change in vision, chest pain, shortness of breath, nausea, vomiting or diarrhea. He does admit to spitting up some blood with burping. Niece notes that she believes that he is not confused but rather secondary to the hearing issue. This has been going on for several months. Denies any black stools. ADDITIONAL HISTORY OBTAINED: Per HPI Chronic Medical/Social Conditions Affecting Care: Per HPI PAST MEDICAL HISTORY:See Below PAST SURGICAL HISTORY:See Below FAMILY HISTORY:See Below SOCIAL HISTORY:See Below HOME MEDICATIONS:See Below ALLERGIES:See Below VITALS:See Below PHYSICAL EXAMINATION: GENERAL: Sitting up in bed, alert, well appearing, well nourished, no distress, non-toxic EYE EXAM: normal conjunctiva. PERRL and EOM's intact. OROPHARYNX: no exudate, no erythema, lips, buccal mucosa, and tongue normal and mucous membranes are moist NECK: supple, no nuchal rigidity, no adenopathy, non-tender LUNGS: Clear to auscultation. Normal chest wall mechanics HEART: no murmurs, S1 normal and S2 normal ABDOMEN: abdomen soft, non-tender, normo-active bowel sounds, no masses, no rebound or guarding. BACK: Back is symmetrical on inspection and there is no deformity, no midline tenderness, no CVA tenderness. SKIN: no rashes and no bruising UPPER EXTREMITIES: upper extremities are grossly normal. LOWER EXTREMITIES: No pitting edema. NEURO EXAM: Normal sensorium oriented to person, place and year, cranial nerves II-XII intact, normal speech, no weakness of arms, no weakness of legs. No drift. Finger to nose intact. Gross sensation intact. MEDICAL DECISION MAKING: Patient is a 89-year-old male who presents ER for the above-stated complaint. IV was established blood was obtained. Labs show no significant leukocytosis or anemia. BMP with a creatinine 1.6 slightly up from baseline of 1. LFTs bilirubin is unremarkable. Mag at 1.9. Troponin was negative. TSH unremarkable. UA was clean. Patient while burping did bring up some blood. Was placed on a Protonix drip and bolus. Did discussed case with gastroenterology and they were agreeable to consulting. Discussed with family and they are agreeable for observation as well and discussed with Dr. Mckeon for further evaluation management treatment. Patient denies all other complaints at this time. No new or changing belly pain. Again history is very difficult due to hearing issues. Consults/Care Managements Discussions: Per MDM Triage Nursing notes reviewed. Limited review of prior medical records performed Vital Signs: reviewed and remarkable for no significant abnormalities Differential diagnosis: Infection, dehydration, metabolic abnormality, hypo/hyperglycemia, electrolyte disturbance, anemia, hypoxia, cardiac sources, intracerebral event, toxicologic, neurologic, as well as other pathologies. ER treatment provided: See below Diagnostics interpreted by me include EKG and cardiac monitoring as listed below: -Cardiac Monitoring: An order was placed for continuous cardiac monitoring. The monitor shows a rate of 72 with sinus rhythm. -ECG: Sinus rhythm rate of 75 Left axis No PVCs QTc 444 -Laboratory studies:Interpreted by me as stated above in MDM and shown below. 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 post upper GI endoscopy and biopsy March 18, 2018 Adenocarcinoma Status post PET/CT March 14, 2018 FDG avidity in the distal esophagus Plan for EUS May 08, 2018" HTN (hypertension) Surgical History History of arthroplasty of knee History of cystoscopy History of cataract surgery Family History Other Hypertension Stroke Social History Smoking Status: Never smoker Hx Alcohol Use: No Hx Substance Use: No Preferred Language: Belarusian Communication Ability: Impaired Beliefs That Will Affect Care: Jain (Hindu) Current Living Situation: Alone Feels Safe at Home: Yes Assistive Devices: None Allergies Allergies Allergy/AdvReac Type Severity Reaction Status Date / Time No Known Allergies Allergy Verified 04/09/24 19:44 Home Meds Home Medications Medication Instructions Recorded Confirmed amlodipine 10 mg tablet (Norvasc) 10 mg PO DAILY 05/04/19 04/09/24 pantoprazole 40 mg tablet,delayed 40 mg PO DAILY 05/04/19 04/09/24 release (Protonix) lisinopril 10 mg tablet 10 mg PO DAILY 09/30/23 04/09/24 metoprolol succinate 50 mg 50 mg PO BID 09/30/23 04/09/24 tablet,extended release 24 hr calcium carbonate (Tums) 300 mg PO QID 04/09/24 04/09/24 glucosamine sulfate 750 mg tablet 750 mg PO BID 04/09/24 04/09/24 Results & Data (ED) Vital Signs Vital Signs - 24 hr 04/09/24 15:43 04/09/24 17:03 04/09/24 18:51 Temperature 36.6 C Temperature Source Temporal Artery Scan Pulse Rate 81 72 Pulse Rate [Apical] 69 Pulse Rate from SpO2 Sensor 71 Pulse Rhythm [Apical] Regular Pulse Strength [Apical] Normal Respiratory Rate 18 20 18 Respiratory Effort / Characteristics Non-Labored Spontaneous Non-Labored Spontaneous Respiratory Depth Normal Normal Respiratory Pattern Regular Blood Pressure 134/86 152/75 H Blood Pressure [Right Arm] 167/82 H Blood Pressure Mean 102 100 Blood Pressure Mean [Right Arm] 110 Blood Pressure Position [Right Arm] Lying Pulse Oximetry 93 97 96 Oxygen Delivery Method Room Air Room Air Room Air Sepsis Recent Fever Within 48 Hours No Sepsis New/Unexplained Change in Mental Status N/A Sepsis Action Taken by Nursing No Action Required 04/09/24 19:09 04/09/24 19:40 04/09/24 19:43 Temperature Temperature Source Pulse Rate 70 80 Pulse Rate [Apical] Pulse Rate from SpO2 Sensor 70 Pulse Rhythm [Apical] Pulse Strength [Apical] Respiratory Rate 14 Respiratory Effort / Characteristics Respiratory Depth Respiratory Pattern Blood Pressure 152/75 H 145/89 H Blood Pressure [Right Arm] Blood Pressure Mean 100 99 Blood Pressure Mean [Right Arm] Blood Pressure Position [Right Arm] Pulse Oximetry 97 Oxygen Delivery Method Room Air Sepsis Recent Fever Within 48 Hours Sepsis New/Unexplained Change in Mental Status Sepsis Action Taken by Nursing 04/09/24 19:48 04/09/24 20:00 04/09/24 20:48 Temperature Temperature Source Pulse Rate 66 66 66 Pulse Rate [Apical] Pulse Rate from SpO2 Sensor Pulse Rhythm [Apical] Pulse Strength [Apical] Respiratory Rate 15 16 22 Respiratory Effort / Characteristics Respiratory Depth Respiratory Pattern Blood Pressure 145/81 H Blood Pressure [Right Arm] Blood Pressure Mean 102 Blood Pressure Mean [Right Arm] Blood Pressure Position [Right Arm] Pulse Oximetry 97 Oxygen Delivery Method Room Air Sepsis Recent Fever Within 48 Hours Sepsis New/Unexplained Change in Mental Status Sepsis Action Taken by Nursing 04/09/24 21:00 Temperature Temperature Source Pulse Rate Pulse Rate [Apical] Pulse Rate from SpO2 Sensor Pulse Rhythm [Apical] Pulse Strength [Apical] Respiratory Rate Respiratory Effort / Characteristics Respiratory Depth Respiratory Pattern Blood Pressure 140/83 Blood Pressure [Right Arm] Blood Pressure Mean 112 Blood Pressure Mean [Right Arm] Blood Pressure Position [Right Arm] Pulse Oximetry Oxygen Delivery Method Sepsis Recent Fever Within 48 Hours Sepsis New/Unexplained Change in Mental Status Sepsis Action Taken by Nursing Laboratory Data 04/09/24 17:05 04/09/24 17:05 Lab Results 04/09/24 04/09/24 Range/Units 17:05 19:20 WBC 7.39 (4.8-10.8) K/ul RBC 4.69 L (4.70-6.10) M/uL Hgb 14.2 (14.0-18.0) g/dl Hct 43.4 (42.0-52.0) % MCV 92.5 (80.0-100.0) fL MCH 30.3 (25.0-34.0) pg MCHC 32.7 (32.0-36.0) g/dL RDW Std Deviation 45.0 (36.4-46.3) fL RDW Coeff of [place] 13.2 (11.5-14.5) % Plt Count 181 (130-400) K/uL MPV 8.9 L (9.4-12.4) fL Immature Gran % (Auto) 0.1 % Neut % (Auto) 67.5 % Lymph % (Auto) 20.2 % [place] % (Auto) 11.4 % Eos % (Auto) 0.3 % Baso % (Auto) 0.5 % Neut # (Auto) 4.99 (1.40-6.50) K/uL Lymph # (Auto) 1.49 (1.20-3.40) K/uL [place] # (Auto) 0.84 H (0.11-0.59) K/uL Eos # (Auto) 0.02 (0.00-0.50) K/uL Baso # (Auto) 0.04 (0.00-0.20) K/uL Immature Gran # (Auto) 0.01 (0.01-0.20) K/uL Sodium 141 (136-145) mmol/L Potassium 3.7 (3.5-5.1) mmol/L Chloride 104 (98-107) mmol/L Carbon Dioxide 27 (21-32) mmol/L Anion Gap 10 (3-11) BUN 44 H (6-23) mg/dl Creatinine 1.64 H (0.6-1.4) mg/dl Est Cr Clr Drug Dosing 26.3 ml/min Est GFR ( Amer) 42.9 ml/min Est GFR (Non-Af Amer) 37.0 ml/min BUN/Creatinine Ratio 26.8 H (10-20) Glucose 112 H (70-99(Fasting)) mg/dl Calcium 10.8 H (8.6-10.3) mg/dl Magnesium 1.9 (1.7-2.4) mg/dl Total Bilirubin 0.7 (0.2-1.0) mg/dl AST 15 (13-39) U/L ALT 9 (7-52) U/L Alkaline Phosphatase 52 (34-104) U/L Troponin I High Sens 7.5 (0-20) pg/ml Total Protein 7.8 (6.0-8.3) gm/dl Albumin 4.5 (3.4-5.0) gm/dl Globulin 3.3 (2.5-4.0) gm/dl Albumin/Globulin Ratio 1.4 (0.9-2) TSH 0.900 (0.300-4.500) uIu/ml Urine Color Yellow Urine Appearance Clear (Clear) Urine pH 7.0 (4.5-7.5) Ur Specific [place] 1.015 (1.000-1.030) Urine Protein Trace H (Negative) Urine Glucose (UA) Negative (Negative) Urine Ketones Trace H (Negative) Urine Blood Negative (Negative) Urine Nitrite Negative (Negative) Urine Bilirubin Negative (Negative) Urine Urobilinogen Negative (Negative) Ur Leukocyte Esterase Trace H (Negative) Urine WBC (Auto) 0-5 (0-5) /hpf Urine RBC (Auto) 3-5 H (0-2) /hpf U Hyaline Cast (Auto) 3-5 H (0-2) /lpf U Epithel Cells (Auto) 0-2 (0-2) /hpf Urine Bacteria (Auto) None Seen (None Seen) Administered Medications Pantoprazole Sodium 40 mg/ (Dextrose) 100 mls @ 20 mls/hr IV Q5H SAEID Stop: 05/09/24 19:44 Last Admin: 04/09/24 20:33 Dose: 8 mg/hr, 20 mls/hr Documented By: MATT Discontinued Medications Pantoprazole Sodium 80 mg/ (Dextrose) 120 mls @ 480 mls/hr IV NOW ONE Stop: 04/09/24 19:44 Last Infusion: 04/09/24 20:48 Dose: Infused Documented By: Admin: 04/09/24 20:08 Dose: 480 mls/hr Documented By: MATT Pantoprazole Sodium (Pantoprazole Bolus/Drip) 1 each IV NOW STA Stop: 04/09/24 19:31 Last Admin: 04/09/24 20:13 Dose: Not Given Documented By: MATT Imaging Data Radiologist's Impression: Chest X-Ray 04/09/24 15:46 SINGLE VIEW CHEST CLINICAL HISTORY: Change in mental status. Generalized weakness. FINDINGS: An AP, portable, upright chest radiograph is compared to study dated 09/30/2023 and correlated with chest CT dated 10/29/2011 and PET/CT dated 04/13/2018. There is a large hiatal hernia. The heart is enlarged noting atherosclerotic calcification of the thoracic aorta. The pulmonary vasculature is noncongested. Chronic interstitial thickening is similar to previous. There is chronic elevation of the right hemidiaphragm and mild bibasilar atelectasis. No airspace consolidation or large pleural effusion is identified No pneumothorax is seen. The skeletal structures are osteopenic. The bony thorax is grossly intact. IMPRESSION: 1. Cardiomegaly with no acute cardiopulmonary abnormality identified. 2. Large hiatal hernia. ACT 112: Negative or not required by law. Electronically signed by: Kimani Parra M.D. 04/09/2024 6:[address] 04/09/24 15:46 CT SCAN OF THE BRAIN WITHOUT IV CONTRAST CLINICAL HISTORY: Change in mental status. COMPARISON STUDY: CT of the brain dated 09/30/2023 TECHNIQUE: Unenhanced axial CT scan of the brain is performed from the vertex to the skull base. A dose lowering technique was utilized adhering to the principles of ALARA. CT DOSE: 1687.29 mGy.cm FINDINGS: Brain parenchyma: There is age-related involutional change noting mild subcortical and periventricular microangiopathic disease. There is no hemorrhage, mass effect, or evidence of acute territorial ischemia by CT criteria. Cisneros-white matter differentiation is preserved. No extra-axial fluid collection is seen. Ventricles, sulci, cisterns: Prominent secondary to involutional change. Intracranial vasculature: There is atherosclerotic calcification of the cavernous carotid and vertebral arteries. Calvarium: Unremarkable. Sinuses and mastoids: There is mild mucosal thickening in the right sphenoid sinus. The remaining paranasal sinuses are clear. The mastoid air cells are well pneumatized. Orbits: The bony orbits are grossly intact. There are bilateral ocular lens implants. IMPRESSION: There is no hemorrhage, mass effect, or evidence of acute territorial ischemia by CT criteria. ACT 112: Negative or not required by law. Electronically signed by: Kimani Parra M.D. 04/09/2024 4:53 PM Discharge Plan Visit Data Chief Complaint: Referred by Doctor Stated Complaint: LOW CALCIUM LEVEL ED Provider: Berny Wilson Discharge Problem: Bloody vomitus, History of esophageal cancer, Hypercalcemia, Hard of hearing, JEAN CARLOS (acute kidney injury) Forms Stand Alone Forms: [employer] Prescriptions Prescriptions: No Action amlodipine [Norvasc] 10 mg tablet 10 mg PO DAILY pantoprazole [Protonix] 40 mg tablet,delayed release (DR/EC) 40 mg PO DAILY metoprolol succinate 50 mg tablet extended release 24 hr 50 mg PO BID lisinopril 10 mg tablet 10 mg PO DAILY Tums 300 mg (750 mg) Tablet,Chewable 300 mg PO QID glucosamine sulfate [Glucosamine] 750 mg Tablet 750 mg PO BID Referrals Referrals: Mumtaz Loza MD [Primary Care Provider] - Discharge Problem: Bloody vomitus Qualifiers: Nausea presence: unspecified Qualified Code(s): K92.0 - Hematemesis
[2024-04-09 17:44] LABS: Troponin I High Sensitivity 7.5 pg/ml (0-20)
[2024-04-09 17:53] LABS: Thyroid Stimulating Hormone 0.9 uIu/ml (0.300-4.500)
--- NOTE | 2024-04-09 18:13 | XRay Report ---
SINGLE VIEW CHEST CLINICAL HISTORY: Change in mental status. Generalized weakness. FINDINGS: An AP, portable, upright chest radiograph is compared to study dated 09/30/2023 and correlate d with chest CT dated 10/29/2011 and PET/CT dated 04/13/2018. There is a large hiatal hernia. The heart is enlarged noting atherosclerotic calcification of the thoracic aorta. The pulmonary vasculature is noncongested. Chronic interstitial thickening is similar to previous. There is chronic elevation of the right hemidiaphragm and mild bibasilar atelectasis. No airspace consolidation or large pleural ef fusion is identified No pneumothorax is seen. The skeletal structures are osteopenic. The bony thorax is grossly intact. IMPRESSION: 1. Cardiomegaly with no acute cardiopulmonary abnormality identified. 2. Large hiatal hernia. ACT 112: Negative or not required by law. Electronically signed by: Kimani Parra M.D. 04/09/2024 6:11 PM
[2024-04-09 19:42] LABS: Appearance Urine Clear (Clear); Bacteria Urine Automated None Seen (None Seen); Bilirubin Urine Negative (Negative); Blood Urine Negative (Negative); Color Urine Yellow; Epithelial Cell Urine Auto 0-2 /hpf (0-2); Glucose Urine UA Negative (Negative); Ketones Urine Trace (Negative); Leukocyte Esterase Urine Trace (Negative); Nitrite Urine Negative (Negative); Protein Urine Trace (Negative); Specific Gravity Urine 1.015 (1.000-1.030); Urobilinogen Urine Negative (Negative); WBC Urine Automated 0-5 /hpf (0-5)
--- NOTE | 2024-04-09 19:56 | History & Physical Report ---
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 OF NOTE: Patient is extremely hard of hearing - he will respond to loud verbal cues/commands more so in his R ear than his L ear. Episodes of Hemoptysis [? 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 Pt has been intermittently coughing and "spitting up" blood over the past several months per his niece - ? hematemesis. Pt's niece mentions that he has a history of esophageal varices. Protonix drip was ultimately started in the ED. Admitting EKG shows sinus rhythm with 1st degree AV block with PACs, HR 75bpm. Admitting CXR showing cardiomegaly w/ no acute cardiopulmonary abnormalities, large hiatal hernia. Admitting head CT negative for hemorrhage, mass effect or evidence of acute territorial ischemia. Given pertinent hx of esophageal carcinoma, CT chest w/o contrast ordered - will follow. GI consulted, appreciate their recommendations/input moving forward. Hgb stable at 14.2 at time of admission; plt count WNL at 181, RBC 4.69. Will continue Protonix drip for now, will keep pt NPO pending GI evaluation. H&H Q6H x 3, starting tonight (04/09) at 11PM - continue to monitor Hgb closely. Hypercalcemia Calcium 10.8 at time of admission. Per chart review, his calcium level was elevated at 11.7 on 01/21/24. Will start pt on IV NSS @ 100cc/hr x 2 bags. No other electrolyte abnormalities on admitting BMP. Pt was previously using calcium carbonate (Tums) at home [employer] per chart review - will hold. Repeat BMP in AM, continue to monitor calcium level and address PRN. Acute Kidney Injury (JEAN CARLOS) Creatinine 1.64 on admission; baseline creatinine ~1.0-1.2 per chart review. BUN also elevated at 44; will start pt on IV NSS @100cc/hr x 2 bags. Repeat BMP in AM, continue to monitor renal function closely. Avoid nephrotoxic medications when able. Hypertension (HTN) Pt's niece unsure if pt has been taking his medications as prescribed. BP stable at 140/83 at time of admission; will continue [employer] lisinopril and metoprolol succinate for now. Will hold pt's amlodipine for now; continuous cardiac monitoring in place, reassess pt's BP trend overnight in AM. Bilateral Cerumen Impaction, Hard of Hearing: Pt saw his PCP today who noted significant cerumen impaction in both ears. Will order scheduled Debrox drops BID for both ears. DVT Prophylaxis: SCDs/TEDs - For now Code Status: FULL CODE PCP: Mumtaz Loza MD Disposition: Admit to PCU/Telemetry Patient seen in collaboration with Dr. Rubio. Please see addendum. I spent a total of 60 minutes coordinating, documenting, and providing care for this patient excluding time spent in the performance of separately billed services. This included personally reviewing all current laboratories and imaging studies, medical reconciliation, outpatient chart review and discussion with specialists. This chart was completed in part utilizing Speech Voice Recognition Software. Grammatical errors, random word insertions, pronoun errors, and incomplete sentences are an occasional consequence of this system due to software limitations, ambient noise, and hardware issues. Any formal questions or concerns about the content, text, or information contained within the body of this dictation should be directly addressed to the provider for clarification. 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 History mostly obtained from patient's niece at bedside and associated chart review. Patient is very hard of heading, but is A+Ox4 to very loud verbal commands. His niece reports that you have to speak very loudly into his right ear and then he will be able to hear you - patient speaks very loudly at baseline. His niece states that he's been coughing and "spitting up" blood for the past several months - she is unsure of the exact timeframe. She has only been visiting him for the past 2 days. She mentions he has been well lately, no recent fevers or illnesses. Patient used to go to [place], but now lives independently here. His niece reports that she accompanied him to an PCP appointment this morning. She was told to bring him here to the ED secondary to his high calcium level, which has been elevated since 01/21/2024 - it was 11.7 at that time. His calcium level had not been repeated since then. His PCP was concerned that he was possibly confused due to the high calcium level, but his niece mentions he's been acting rather normal. He has been repeating himself more, but she hasn't noticed any abnormal behavior. Patient denies any SOB, chest pain, abdominal pain or urinary/bowel habit issues. His niece is unsure if he has been taking his medications as prescribed at home. I was able to obtain a copy of his current medication list that his niece had brought with her to the ED from his PCP visit today. Allergies Allergy/AdvReac Type Severity Reaction Status Date / Time No Known Allergies Allergy Verified 04/09/24 19:44 Home Medications Medication Instructions Recorded Confirmed Type amlodipine 10 mg tablet (Norvasc) 10 mg PO DAILY 05/04/19 04/09/24 History pantoprazole 40 mg tablet,delayed 40 mg PO DAILY 05/04/19 04/09/24 History release (Protonix) lisinopril 10 mg tablet 10 mg PO DAILY 09/30/23 04/09/24 History metoprolol succinate 50 mg 50 mg PO BID 09/30/23 04/09/24 History tablet,extended release 24 hr calcium carbonate (Tums) 300 mg PO QID 04/09/24 04/09/24 History glucosamine sulfate 750 mg tablet 750 mg PO BID 04/09/24 04/09/24 History Past Med/Surg History Problem List (Updated 04/09/24 @ 21:34 by Berny Wilson DO) JEAN CARLOS (acute kidney injury) (Acute) Hard of hearing (Acute) Bloody vomitus (Acute) History of esophageal cancer (Acute) Hemoptysis Hypercalcemia (Acute) Acute sinusitis Encephalopathy Dysphagia Acute maxillary antritis Hypokalemia Metabolic encephalopathy Medical History Anxiety Barretts esophagus Carcinoma of distal third of esophagus (03/18/18) "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 post upper GI endoscopy and biopsy March 18, 2018 Adenocarcinoma Status post PET/CT March 14, 2018 FDG avidity in the distal esophagus Plan for EUS May 08, 2018" HTN (hypertension) Surgical History History of arthroplasty of knee History of cystoscopy History of cataract surgery Family History Other Hypertension Stroke Social History Smoking Status: Never smoker Hx Alcohol Use: No Hx Substance Use: No Preferred Language: Maltese Communication Ability: Impaired Communication Ability Comment: extremely [place], communication difficult Director Of Photography Required: No Beliefs That Will Affect Care: Faith Faith Beliefs: Rastafarian Current Living Situation: Alone Feels Safe at Home: Yes Assistive Devices: Denture - Upper, Glasses and Hearing Aid - Bilateral Review of Systems Review of Systems: At least ten systems reviewed and negative, except as noted in the HPI. Physical Exam Physical Exam: General: WD/WN, vitals as above, NAD, sitting up in bed, pleasant. Very hard of hearing - but responsive to loud verbal commands. A+O x 3. HEENT: Normocephalic, atraumatic. Normal inspection, PERRL, conjunctivae normal, anicteric sclerae. External ear and nose normal, oropharynx normal. Respiratory: Normal respiratory effort, lungs clear to auscultation, no wheeze, rales, rhonchi. No accessory muscle use. Cardiovascular: Regular rate, rhythm, no murmur, normal peripheral pulses, no BLE edema. Vessels: No JVD. Abdomen/GI: Normal bowel sounds, soft, nontender, no hepatosplenomegaly. Extremities/Musculoskeletal: No cyanosis or clubbing, extremities motor strength not formally tested but appears intact. Neurologic: EOMI, accommodation nl, no face palsy, no dysarthria and moves all extremities when instructed to. Skin: No rashes, normal color, warm/dry. Results & Data Results & Data Vital Signs (Past 12 Hours) Vital Signs Temp Pulse Pulse Resp BP BP Pulse Ox 04/09/24 19:43 80 04/09/24 18:51 72 18 152/75 H 96 04/09/24 17:03 69 20 167/82 H 97 04/09/24 15:43 36.6 C 81 18 134/86 93 O2 Del Method 04/09/24 19:43 04/09/24 18:51 Room Air 04/09/24 17:03 Room Air 04/09/24 15:43 Room Air Laboratory Results Short CBC 04/09/24 Range/Units 17:05 WBC 7.39 (4.8-10.8) K/ul Hgb 14.2 (14.0-18.0) g/dl Hct 43.4 (42.0-52.0) % Plt Count 181 (130-400) K/uL BMP 04/09/24 17:05 Sodium 141 Potassium 3.7 Chloride 104 Carbon Dioxide 27 BUN 44 H Creatinine 1.64 H Glucose 112 H Calcium 10.8 H Liver Function 04/09/24 Range/Units 17:05 Total Bilirubin 0.7 (0.2-1.0) mg/dl AST 15 (13-39) U/L ALT 9 (7-52) U/L Alkaline Phosphatase 52 (34-104) U/L Albumin 4.5 (3.4-5.0) gm/dl Urine 04/09/24 Range/Units 19:20 Urine Color Yellow Urine Appearance Clear (Clear) Urine pH 7.0 (4.5-7.5) Ur Specific [place] 1.015 (1.000-1.030) Urine Protein Trace H (Negative) Urine Glucose (UA) Negative (Negative) Diagnostic Findings Chest X-Ray 04/09/24 15:46 SINGLE VIEW CHEST CLINICAL HISTORY: Change in mental status. Generalized weakness. FINDINGS: An AP, portable, upright chest radiograph is compared to study dated 09/30/2023 and correlated with chest CT dated 10/29/2011 and PET/CT dated 04/13/2018. There is a large hiatal hernia. The heart is enlarged noting atherosclerotic calcification of the thoracic aorta. The pulmonary vasculature is noncongested. Chronic interstitial thickening is similar to previous. There is chronic elevation of the right hemidiaphragm and mild bibasilar atelectasis. No airspace consolidation or large pleural effusion is identified No pneumothorax is seen. The skeletal structures are osteopenic. The bony thorax is grossly intact. IMPRESSION: 1. Cardiomegaly with no acute cardiopulmonary abnormality identified. 2. Large hiatal hernia. ACT 112: Negative or not required by law. Electronically signed by: Kimani Parra M.D. 04/09/2024 6:[address] 04/09/24 15:46 CT SCAN OF THE BRAIN WITHOUT IV CONTRAST CLINICAL HISTORY: Change in mental status. COMPARISON STUDY: CT of the brain dated 09/30/2023 TECHNIQUE: Unenhanced axial CT scan of the brain is performed from the vertex to the skull base. A dose lowering technique was utilized adhering to the principles of ALARA. CT DOSE: 1687.29 mGy.cm FINDINGS: Brain parenchyma: There is age-related involutional change noting mild subcortical and periventricular microangiopathic disease. There is no hemorrhage, mass effect, or evidence of acute territorial ischemia by CT criteria. Cisneros-white matter differentiation is preserved. No extra-axial fluid collection is seen. Ventricles, sulci, cisterns: Prominent secondary to involutional change. Intracranial vasculature: There is atherosclerotic calcification of the cavernous carotid and vertebral arteries. Calvarium: Unremarkable. Sinuses and mastoids: There is mild mucosal thickening in the right sphenoid sinus. The remaining paranasal sinuses are clear. The mastoid air cells are well pneumatized. Orbits: The bony orbits are grossly intact. There are bilateral ocular lens implants. IMPRESSION: There is no hemorrhage, mass effect, or evidence of acute territorial ischemia by CT criteria. ACT 112: Negative or not required by law. Electronically signed by: Kimani Parra M.D. 04/09/2024 4:53 PM Medications Administered Pantoprazole Sodium 40 mg/ (Dextrose) 100 mls @ 20 mls/hr IV Q5H [facility] Stop: 05/09/24 19:44 Last Admin: 04/09/24 20:33 Dose: 8 mg/hr, 20 mls/hr Discontinued Medications Pantoprazole Sodium 80 mg/ (Dextrose) 120 mls @ 480 mls/hr IV NOW ONE Stop: 04/09/24 19:44 Last Infusion: 04/09/24 20:48 Dose: Infused Pantoprazole Sodium (Pantoprazole Bolus/Drip) 1 each IV NOW STA Stop: 04/09/24 19:31 Last Admin: 04/09/24 20:13 Dose: Not Given ECG Additional Comments: Admitting EKG shows sinus rhythm with first-degree AV block with premature atrial complexes, HR 75bpm and QTc interval 444ms. When compared to EKG performed 09/30/09/30/2023, no significant change was found. Code Status & VTE Plan Code Status FULL CODE VTE Prophylaxis Plan VTE Prophylaxis will be ordered: Yes Supervising Physician Co-Signing Physician Notes Attending Addendum: Case reviewed with the advanced practitioner. I have personally performed a history and physical examination on the patient. I have reviewed the advanced practitioner's documentation on the date of service referenced in note, and I agree with, and take responsibility for the plan of care. please refer to her notes for full details patient seen and examined, records reviewed by myself as well on exam, patient seen resting in bed, comfortable no recurrence of hematemesis/hemoptysis while in the ER no chest pain, dyspnea, palpitations, dizziness no other symptoms VS noted and reviewed oriented x 2-3, not in distress, speaks in sentences with no effort nor accessory muscle use normal rate, regular rhythm, no murmurs clear breath sounds bilaterally non distended, soft, nontender no bipedal edema, erythema, warmth no neuro deficits all labs, imaging noted and reviewed ASSESSMENT AND PLAN HEMATEMESIS VS HEMOPTYSIS Hg stable at 14 monitor Hg q6h NPO, Protonix drip, GI Consult CT chest to r/o lung mass HYPERCALCEMIA, ACUTE KIDNEY INJURY Ca 10.9 no EKG changes IV fluids hold Lisinopril monitor BMP other diagnoses and plan of care as per advanced practitioner's notes Fish Rubio MD
[2024-04-09] MEDS: PANTOprazole 80 MG in DEXTROSE 5% 100 ML IV ONE (20:08)
[2024-04-09] MEDS: PANTOPRAZOLE BOLUS/DRIP IV STA (20:13)
[2024-04-09] MEDS: PANTOprazole 40 MG in DEXTROSE 5% MINI-B 100 ML IV SCH (20:33)
[2024-04-09] MEDS ORDERED: ONDANSETRON INJ 2 MG/ML 2 ML VIAL IV PRN (22:30)
[2024-04-09] MEDS ORDERED: POLYETHYLENE (MIRALAX) 17 GM PACK PO PRN (22:30)
[2024-04-09] MEDS: SODIUM CHLORIDE 0.9% 1,000 ML IV SCH (22:40)
[2024-04-09 23:34] LABS: Hematocrit (blood only) 38.3 % (42.0-52.0); Hemoglobin 12.4 g/dl (14.0-18.0)
--- NOTE | 2024-04-10 01:48 | CT Scan Report ---
Exam(s): CT CHEST Without Contrast EXAM: CT Chest Without Intravenous Contrast CLINICAL HISTORY: Reason for exam: Hemoptysis, hx of esophageal CA. TECHNIQUE: Axial computed tomography images of the chest without intravenous contrast. CTDI is 13.73 mGy and DLP is 420.94 mGy-cm. Automated exposure control was utilized for the study. A dose lowering technique was utilized adhering to the principles of ALARA. COMPARISON: 10/29/11. FINDINGS: Lungs: Unremarkable. Mild bibasilar subsegmental atelectasis demonstrated. Lungs are otherwise clear. Punctate calcified granuloma left upper lobe noted. Pleural space: Unremarkable. No pneumothorax. No significant effusion. Heart: Heart is normal in size and there are mild severity coronary artery calcifications. Calcifications of the aortic valve leaflets noted, which may represent aortic stenosis. Trace pericardial effusion. Mediastinum: Diffuse thickening of the esophageal wall demonstrated, correlating to provided clinical history of esophageal carcinoma. Large hiatal hernia redemonstrated. Bones/joints: Unremarkable. No acute fracture. No dislocation. Thoracic spine kyphosis with levoscoliosis. Soft tissues: Unremarkable. Vasculature: No aneurysmal dilatation of the thoracic aorta. Lymph nodes: Unremarkable. No enlarged lymph nodes. Gallbladder and bile ducts: Cholelithiasis noted. Kidneys and ureters: Severe left hydronephrosis partially visualized. IMPRESSION: 1. Diffuse thickening of the esophageal wall demonstrated, correlating to provided clinical history of esophageal carcinoma. 2. Severe left hydronephrosis partially visualized. Electronically signed by: William Stauffer MD 04/10/24 01:47 AM
[2024-04-10 07:34] LABS: Hematocrit (blood only) 36.5 % (42.0-52.0); Hemoglobin 12.1 g/dl (14.0-18.0); Mean Corpuscular Hemoglobin 30.4 pg (25.0-34.0); Mean Corpuscular Hgb Conc 33.2 g/dL (32.0-36.0); Mean Corpuscular Volume 91.7 fL (80.0-100.0); Mean Platelet Volume 9.2 fL (9.4-12.4); Platelet Count 165 K/uL (130-400); RDW Standard Deviation 43.6 fL (36.4-46.3); Red Blood Count 3.98 M/uL (4.70-6.10); White Blood Count 6.43 K/ul (4.8-10.8)
--- OUTSIDE RECORDS SUMMARY | 2024-04-10 07:39 | External Medical Summary | Summary of Care ---
Author Name Unknown Organization [facility] Address [address] [place] [address] Phone [phone] Care Team Providers Care Pt Skilled Name Role Phone Mumtaz Loza MD Primary Care Provider + Reason for Visit * Reason Comments Outpatient Testing Encounter Details Date Type Department Care Team (Late st Contact Info) Description 01/21/2024 4:30 PM EDT Laboratory Laboratory [facility] [address] [place] [phone] [facility] [address] [place] [address] Malignant neoplasm of lower third of esophagus (HCC); Dysphagia, unspecified type; Encounter for long-term (current) use of medications; Hydroureteronephrosis ; Prediabetes; Urinary incontinence, unspecified type Allergies No known active allergiesdocumented as of this encounter (statuses as of 01/23/2024) Medications Medication Sig Dispensed Refills Start Date End Date Status Misc Natural Products (COMPLETE PROSTATE HEALTH) TABS Take 2 Tabs by mouth daily. 0 Active diphenhydrAMINE HCl 25 MG Oral Tablet (BENADRYL) Take 1 Tablet by mouth every 6 hours as needed for Itching. 0 Active Cetirizine HCl 10 MG Oral Tablet Take 1 Tablet by mouth in the morning. 0 05/09/2021 Active Clotrimazole 1 % External Solution (Mycelex)Indicatio ns:Otomycosis Place 4 drops in both ears twice a day for 10 days. 15 mL 0 08/01/2022 Active amLODIPine Besylate 10 MG Oral Tablet (Norvasc)Indicatio ns:HTN, goal below 150/90 TAKE 1 TABLET by mouth DAILY 90 Tablet 3 04/15/2023 Active Acetaminophen ER 650 MG Oral Tablet Extended Release (Tylenol ER) Take 1 Tablet by mouth. 0 Active Pantoprazole Sodium 40 MG Oral Tablet Delayed Release (Protonix)Indicati ons:Malignant neoplasm of lower third of esophagus (HCC) Take by mouth 1 Tablet in the morning. 30 Tablet 5 09/10/2023 Active Additional Information Patient not taking.Reported on 01/21/2024 Metoprolol Succinate ER 50 MG Oral Tablet Extended Release 24 Hour (toPROL XL)Indications:HTN , goal below 150/90 TAKE 1 TABLET IN THE MORNING AND 1 TABLET BEFORE BEDTIME 180 Tablet 3 12/09/2023 Active Lisinopril 10 MG Oral Tablet (Prinivil)Indicati ons:HTN, goal below 150/90 TAKE 1 TABLET DAILY 90 Tablet 0 12/30/2023 Active documented as of this encounter (statuses as of 01/23/2024) Active Problems Problem Noted Date Diagnosed Date Mild aortic regurgitation 01/24/2023 Prediabetes 01/02/2022 Encephalopathy 05/27/2019 RAMU (generalized anxiety disorder) 11/04/2018 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 04/14/2018 Overview: Treated with chemo and xrt 05/2019 in [place], follows at [facility] History of bladder cancer 03/24/2018 Gastroesophageal reflux disease with esophagitis 03/24/2018 H/O: upper GI bleed 09/19/2017 Overview: 2011 Hearing loss 02/22/2015 HTN, goal below 150/90 08/15/2014 Aspirin contraindicated 01/20/2012 documented as of this encounter (statuses as of 01/23/2024) Resolved Problems Problem Noted Date Diagnosed Date Resolved Date Chronic kidney disease, stage 3a 12/04/2020 07/01/2022 Overview: Per CKD protocol History of esophageal cancer 05/19/2019 06/15/2019 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 - treated with RFA, follows with doctors in [place] - EGD 6 months 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 03/24/20 18 UGI bleed 01/20/2012 09/19/2017 Overview: 2012 - biopsies in [place] is benign HTN, goal below 140/90 12/04/201108/15 GERD (gastroesophageal reflux disease) 12/04/2011 03/24/2018 Bladder cancer 12/04/2011 03/24/2018 Overview: Dx 1989', sees urology in [place] 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 01/20/20 12 documented as of this encounter (statuses as of 01/23/2024) Immunizations Name Administration Dates Next Due COVID-19 mRNA, LNP-s, No Pre serve, 2-Dose Series (QuNano) 07/02/2021,12/16/2020,11/25/2020 Covid-19, Mrna, Lnp-s, Pf, B ivalent, 30 Mcg, IM, 12 yrs and above (QuNano) 06/16/2023 Pneumococcal Conjugate Vacc, 13 Valent (Prevnar) 09/30/2018,02/22/2015 Pneumococcal Polysaccharide PPV23 (Pneumovax) 08/11/2008 SARS-COV-2 (COVID-19) Vaccine Unspecified 2020,12/16/2020,11/25/2020 Season Influenza, Quad, PF, Adjuvanted, 65+ Yrs, IM (FLUAD) 06/13/2021 Seasonal Influenza, Quadriva lent Hd (Fluzone Hd) 07/14/2023 Seasonal Influenza, Quadriva lent, No Preserve, IM 07/03/2020,09/02/2016,08/31/2015 Seasonal Influenza, Split, I IV3, With Preserve, Inj 06/09/2014 Seasonal Influenza, Trivalen t, Adjuvanted, 65+ yrs 06/22/2019 Seasonal Influenza, Trivalen t, High Dose, No Preserve, IM 08/28/2018,06/17/2017 TDAP (age 10 and older)(Boostrix) 03/15/2017 Varicella Zoster Vaccine (Adult) 07/21/2013 Zoster Vaccine Recombinant (Shingrix) 08/07/2021 ,11/25/2019 documented as of this encounter Social History Tobacco Use Types Packs/Day Years Used Date Smoking Tobacco: Never Smokeless Tobacco: Never Alcohol Use Standard Drinks/Week Comments No 0 (1 standard drink = 0.6 oz pur e alcohol) PHQ-2 Answer Date Recorded PHQ Adult Total Score 0 12/30/2022 Hunger Vital Sign Answer Date Recorded Within the past 12 months, y ou worried that your food would run out before you got the money to buy more. Never true 12/31/19 23 Within the past 12 months, t he food you bought just didn't last and you didn't have money to get more. Never true 12/30/2022 Sex and Gender Information Value Date Recorded Sex Assigned at Male 03/12/2019 10:45 AM EDT Gender Identity Male 03/12/2019 10:45 AM EDT Sexual Orientation Straight 03/12/2019 10 :45 AM EDT Job Start Date Occupation Industry Not on file Not on file Not on file documented as of this encounter Plan of Treatment Upcoming Encounters Date Type Department Care Team (Late st Contact Info) Description 05/17/2024 2:30 PM EDT Office Visit Gastroenterology, [facility] [address] [place] [phone] Tim Ruiz CRNP [address] [place] [phone] 08/16/2024 3:20 PM EST Office Visit General Internal Medicine [facility] [address] [place] [address] Mumtaz Loza MD [address] [place] [address] Pending Results Name Type Priority Associated Diagnoses Date /Time URINALYSIS WITH MICROSCOPIC EXAM Lab Routine Urinary incontinence, unspecified type 01/23/2024 9:41 AM EDT Health Maintenance Due Date Last Done Comments Philip's Esophagus Surveilance 1935 COVID-19 Vaccine ( season) 2023 06/16/2023, 06/16/2023, 09/10/2022, Additional history exists Depression Screening 12/31/2023 12/30/2022, 03/01/2016 (Not indicated) HbA1c 01/20/2025 01/21/2024, 04/0 12/2022, 07/01/2022, Additional history exists Albumin/Creatinine Ratio 07/01/2025 07/01/2022, 01/28 DTaP,Tdap,and Td Vaccines (2 - Td or Tdap) 03/15/2027 03/15/2017 Pneumococcal Vaccine: 65+ Years Completed 09/30/2018, 02/22/2015, 08/11/2008 Zoster Vaccines Completed 08/07/2021, 10/31, 05/14/2018, Additional history exists Influenza Vaccine (FLU shot) Completed , 06/19/2022, 06/13/2021, Additional history exists GARDASIL-HPV IMMUNIZATION SERIES Aged Out No longer eligible based on patient's age to complete this topic Hepatitis B Aged Out No longer eligi ble based on patient's age to complete this topic MENINGOCOCCAL (MENACTRA/MENVEO) Aged Out No longer eligible based on patient's age to complete this topic documented as of this encounter Medical Devices Implanted Type Area Crop Grain Or Livestock Farm Manager Device Identifier Shelf Expiration Date Model / Serial / Lot Lens 17.0 Mx60 - [id number] - [id number] Implanted:Qty: 1 on 2018 by Vinny Whyte MD at OR [facility] Right: Eye [employer] : SURGICAL 08/28/2020 MX60-17.0 / [id number] / [id number] Lens 16.0 Mx60 - [id number] - [id number] Implanted:Qty: 1 on 01/13/2018 by Vinny Whyte MD at OR [facility] Left: Eye [employer]OM[employer] : SURGICAL 06/28/2022 MX60-16.0 / [id number] / [id number] documented as of this encounter Procedures Procedure Name Priority Date/Time Associated Diagnosis Comments DIFFERENTIAL, AUTOMATED Routine 01/21/2024 4:17 PM EDT Malignant neoplasm of lower third of esophagus (HCC) HEMOGLOBIN A1C Routine 01/21/2024 4:17 PM EDT Prediabetes COMPREHENSIVE METABOLIC PANEL Routine 01/21/2024 4:17 PM EDT Malignant neoplasm of lower third of esophagus (HCC) Dysphagia, unspecified type CBC Routine 01/21/2024 4:17 PM EDT Malignant neoplasm of lower third of esophagus (HCC) CBC Routine 01/21/2024 4:17 PM EDT Malignant neoplasm of lower third of esophagus (HCC) MAGNESIUM Routine 01/21/2024 4:17 PM EDT Encounter for long-term (current) use of medications VITAMIN B12 Routine 01/21/2024 4:17 PM EDT Encounter for long-term (current) use of medications documented in this encounter Results * (ABNORMAL) DIFFERENTIAL, AUTOMATED (01/21/2024 4:17 PM EDT) WBC 7.29 4.00 - 10.80 K/uL 01/21/2024 9:48 PM EDT [facility] Neutrophils % 61.2 40.0 - 75.0 % 01/21/2024 9:48 PM EDT [facility] Lymphocytes % 26.1 18.0 - 42.0 % 01/21/2024 9:48 PM EDT [facility] Monocytes % 11.4(H) 1.0 - 11.0 % 01/21/2024 9:48 PM EDT [facility] Eosinophils % 0.5 0.0 - 6.0 % 01/21/2024 9:48 PM EDT [facility] Basophils % 0.5 0.0 - 2.0 % 01/21/2024 9:48 PM EDT [facility] Immature Granulocytes % 0.3 0.0 - 2.0 % 01/21/2024 9:48 PM EDT [facility] Absolute Neutrophils 4.46 1.80 - 7.70 K/uL 01/21/2024 9:48 PM EDT [facility] Absolute Lymphocytes 1.90 1.00 - 4.80 K/ul 01/21/2024 9:48 PM EDT [facility] Absolute Monocytes 0.83 0.00 - 1.10 K/uL 01/21/2024 9:48 PM EDT [facility] Absolute Eosinophils 0.04 0.00 - 0.70 K/uL 01/21/2024 9:48 PM EDT [facility] Absolute Basophils 0.04 0.00 - 0.20 K/uL 01/21/2024 9:48 PM EDT [facility] Absolute Immature Granulocytes 0.02 0.00 - 0.20 K/uL 01/21/2024 9:48 PM EDT [facility] Blood Venous blood specimen / Unknown Venipuncture / Unknown 01/21/2024 4:17 PM EDT 01/21/2024 4:17 PM EDT Mumtaz Loza MD LAB BLOOD ORDERA BLES [facility] [address] [place] [address] * CBC (01/21/2024 4:17 PM EDT) WBC 7.29 4.00 - 10.80 K/uL 01/21/2024 9:48 PM EDT [facility] RBC 4.66 4.50 - 5.25 M/uL 01/21/2024 9:48 PM EDT [facility] HGB 14.6 14.0 - 16.8 g/dL 01/21/2024 9:48 PM EDT [facility] HCT 44.4 40.0 - 48.4 % 01/21/2024 9:48 PM EDT [facility] MCV 95.3 82.0 - 99.5 fL 01/21/2024 9:48 PM EDT [facility] MCH 31.3 27.0 - 34.0 pg 01/21/2024 9:48 PM EDT [facility] MCHC 32.9 32.0 - 36.0 g/dL 01/21/2024 9:48 PM EDT [facility] RDW 12.9 11.5 - 15.5 % 01/21/2024 9:48 PM EDT [facility] PLT 213 140 - 400 K/uL 01/21/2024 9:48 PM EDT [facility] MPV 10.0 6.6 - 11.1 fL 01/21/2024 9:48 PM EDT [facility] [place]RBCs 0 <=0 /100 WBCs 01/21/2024 9:48 PM EDT [facility] [place] Blood Venous blood specimen / Unknown Venipuncture / Unknown 01/21/2024 4:17 PM EDT 01/21/2024 4:17 PM EDT Mumtaz Loza MD LAB BLOOD ORDERA BLES Performing Organization Address [facility] Co de Phone Number [facility]ATORY [facility] [place] [address] [place] [address] * (ABNORMAL) HEMOGLOBIN A1C (01/21/2024 4:17 PM EDT) Hemoglobin A1C 5.9(H) 4.0 - 5.6 % 01/22/2024 12:28 AM EDT LAB[facility]ORY [facility] [place] Comment:The use of HbA1c to monitor glycemic status is based on normal hemoglobin and HbA composition. This test should not be used in patients with abnormal hemoglobin that affects the half life of the red blood cell or the in vivo glycation rates. Estimated Average Glucose 123 <126 mg/dL 01/22/2024 12:28 AM EDT [facility] [place] Blood Venous blood specimen / Unknown Venipuncture / Unknown 01/21/2024 4:17 PM EDT 01/21/2024 4:17 PM EDT Mumtaz Loza MD LAB BLOOD ORDERA BLES Performing Organization Address [facility] Co de Phone Number [facility]ATORY [facility] [place] [address] [place] [address] * MAGNESIUM (01/21/2024 4:17 PM EDT) Magnesium 1.9 1.5 - 2.6 mg/dL 01/22/2024 12:53 AM EDT [facility] [place] Blood Venous blood specimen / Unknown Venipuncture / Unknown 01/21/2024 4:17 PM EDT 01/21/2024 4:17 PM EDT Mumtaz Loza MD LAB BLOOD ORDERA BLES Performing Organization Address City/[facility]/ZIP Co de Phone Number LAB[facility] [address] [place] [address] * VITAMIN B12 (01/21/2024 4:17 PM EDT) Vitamin B12 592 232 - 1,245 pg/mL 01/22/2024 1:32 AM EDT LABORATORY C Blood Venous blood specimen / Unknown Venipuncture / Unknown 01/21/2024 4:17 PM EDT 01/21/2024 4:17 PM EDT Mumtaz Loza MD LAB BLOOD ORDERA BLES Performing Organization Address [facility] Co de Phone Number [facility] [address] [place] [address] * (ABNORMAL) COMPREHENSIVE METABOLIC PANEL (01/21/2024 4:17 PM EDT) Pathologist [facility] BUN 20 6 - 20 mg/dL 01/22/2024 12:53 AM EDT [facility] Creatinine 1.6(H) 0.6 - 1.2 mg/dL 01/22/2024 12:53 AM EDT [facility] Estimated Glomerular Filtration Rate 41(L) >=60 mL/min 01/22/2024 12:53 AM EDT [facility] Comment:eGFR is calculated b ased on the CKD-EPI 2020 equation Sodium 142 135 - 146 mmol/L 01/22/2024 12:53 AM EDT [facility] Potassium 4.2 3.5 - 5.1 mmol/L 01/22/2024 12:53 AM EDT [facility] Chloride 100 98 - 107 mmol/L 01/22/2024 12:53 AM EDT [facility] CO2 28 22 - 32 mmol/L 01/22/2024 12:53 AM EDT [facility] Anion Gap 14 7 - 15 mmol/L 01/22/2024 12:53 AM EDT [facility] Glucose 126(H) 70 - 120 mg/dL 01/22/2024 12:53 AM EDT [facility] Albumin 4.5 3.8 - 5.0 g/dL 01/22/2024 12:53 AM EDT [facility] AST 19 10 - 50 U/L 01/22/2024 12:53 AM EDT [facility] Alkaline Phosphatase 67 35 - 130 U/L 01/22/2024 12:53 AM EDT [facility] Bilirubin, Total 0.5 <=1.2 mg/dL 01/22/2024 12:53 AM EDT [facility] Calcium 11.7(H) 8.4 - 10.2 mg/dL 01/22/2024 12:53 AM EDT [facility] Protein 7.5 6.0 - 8.3 g/dL 01/22/2024 12:53 AM EDT [facility] ALT 16 10 - 50 U/L 01/22/2024 12:53 AM EDT [facility] Blood Venous blood specimen / Unknown Venipuncture / Unknown 01/21/2024 4:17 PM EDT 01/21/2024 4:17 PM EDT Mumtaz Loza MD LAB BLOOD ORDERA BLES [facility] [address] [place] [address] documented in this encounter Visit Diagnoses Diagnosis 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 Code Status History Code Status Date Activated Date Inactivated Comments Full Code 2018 8:51 AM 2018 4:33 PM This order reflects the patients wishes and were consensually agreed upon. Care Teams Pt Skilled Relationship Specialty Start Date End Date Mumtaz Loza MD [address] [place] [id number] PCP - General Internal Medicine 12/04/11 documented as of this encounter
--- OUTSIDE RECORDS SUMMARY | 2024-04-10 07:39 | External Medical Summary | Summary of Care ---
Author Name Unknown Organization [facility] Address [address] [place] [address] Phone [phone] Care Team Providers Care Accounting Manager Assistant Controller Name Role Phone Mumtaz Boss MD Primary Care Provider + Reason for Visit * Reason Comments eRx-Medication Refill Encounter Details Date Type Department Care Team (Late st Contact Info) Description 04/08/2024 Refill General Internal Medicine [facility] [address] [facility] [place] [address] Mumtaz Boss MD [address] [place] [address] HTN, goal below 150/90 Allergies No known active allergiesdocumented as of this encounter (statuses as of 04/08/2024) Medications Medication Sig Dispensed Refills Start Date End Date Status Misc Natural Products (COMPLETE PROSTATE HEALTH) TABS Take 2 Tabs by mouth daily. Active diphenhydrAMINE HCl 25 MG Oral Tablet (BENADRYL) Take 1 Tablet by mouth every 6 hours as needed for Itching. Active Cetirizine HCl 10 MG Oral Tablet Take 1 Tablet by mouth in the morning. 05/09/2021 Active Clotrimazole 1 % External Solution (Mycelex)Indicat ions:Otomycosis Place 4 drops in both ears twice a day for 10 days. 15 mL 08/01/2022 Active Acetaminophen ER 650 MG Oral Tablet Extended Release (Tylenol ER) Take 1 Tablet by mouth. Active Pantoprazole Sodium 40 MG Oral Tablet Delayed Release (Protonix)Indica tions:Malignant neoplasm of lower third of esophagus (HCC) Take by mouth 1 Tablet in the morning. 30 Tablet 5 09/10/2023 Active Additional Information Patient not taking.Reported on 01/21/2024 Metoprolol Succinate ER 50 MG Oral Tablet Extended Release 24 Hour (toPROL XL)Indications:H TN, goal below 150/90 TAKE 1 TABLET IN THE MORNING AND 1 TABLET BEFORE BEDTIME 180 Tablet 3 12/09/2023 Active Lisinopril 10 MG Oral Tablet (Prinivil)Indica tions:HTN, goal below 150/90 TAKE 1 TABLET DAILY 90 Tablet 3 03/30/2024 Active amLODIPine Besylate 10 MG Oral Tablet (Norvasc)Indicat ions:HTN, goal below 150/90 TAKE 1 TABLET DAILY 90 Tablet 3 04/08/2024 Active amLODIPine Besylate 10 MG Oral Tablet (Norvasc)Indicat ions:HTN, goal below 150/90 TAKE 1 TABLET by mouth DAILY 90 Tablet 3 04/15/2023 4 Discontinued documented as of this encounter (statuses as of 04/08/2024) Active Problems Problem Noted Date Diagnosed Date Mild aortic regurgitation 01/24/2023 Prediabetes 01/02/2022 Encephalopathy 05/27/2019 RAMU (generalized anxiety disorder) 11/04/2018 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 04/14/2018 Overview: Treated with chemo and xrt 05/2019 in [place], follows at [facility] History of bladder cancer 03/24/2018 Gastroesophageal reflux disease with esophagitis 03/24/2018 H/O: upper GI bleed 09/19/2017 Overview: 2011 Hearing loss 02/22/2015 HTN, goal below 150/90 08/15/2014 Aspirin contraindicated 01/20/2012 documented as of this encounter (statuses as of 04/08/2024) Resolved Problems Problem Noted Date Diagnosed Date Resolved Date Chronic kidney disease, stage 3a 12/04/2020 07/01/2022 Overview: Per CKD protocol History of esophageal cancer 05/19/2019 06/15/2019 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 - treated with RFA, follows with doctors in [place] - EGD 6 months 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 03/24/20 18 UGI bleed 01/20/2012 09/19/2017 Overview: 2012 - biopsies in [place] is benign HTN, goal below 140/90 12/04/201108/15 GERD (gastroesophageal reflux disease) 12/04/2011 03/24/2018 Bladder cancer 12/04/2011 03/24/2018 Overview: Dx , sees urology in [place] 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 01/20/20 12 documented as of this encounter (statuses as of 04/08/2024) Immunizations Name Administration Dates Next Due COVID-19 mRNA, LNP-s, No Pre serve, 2-Dose Series ([employer]) 07/02/2021,12/16/2020,11/25/2020 Covid-19, Mrna, Lnp-s, Pf, B ivalent, 30 Mcg, IM, 12 yrs and above (Pfizer) 06/16/2023 Pneumococcal Conjugate Vacc, 13 Valent (Prevnar) [...] money to get more. Never true 12/30/2022 Utilities Answer Date Recorded Do you have trouble paying y our heating, water, or electric bill? (Adult - for ages 18 years and over) Not on file 03/16/2024 Is your family able to pay t he heat, water, or electric bill? (Household - for ages 0-17 years) Not on file 03/16/2024 Does your family have access to good internet? (Household - for ages 0-17 years) Not on file 03/16/2024 Social Connections Answer Date Recorded How often do you feel lonely or isolated from those around you? (Adult - for ages 18 years and over) Not on file 03/16/2024 Sex and Gender Information Value Date Recorded Sex Assigned at Male 03/12/2019 10:45 AM EDT Gender Identity Male 03/12/2019 10:45 AM EDT Sexual Orientation Straight 03/12/2019 10 :45 AM EDT Job Start Date Occupation Industry Not on file Not on file Not on file documented as of this encounter Miscellaneous Notes * Telephone Encounter - Darrell Rojas [facility] - 04/08/2024 4:18 PM EDTSigned Prescriptions: Disp Refills amLODIPine Besylate 10 MG Oral Tablet (Nor*90 Tab*3 Sig: TAKE 1 TABLET DAILYAuthorizing Provider: MUMTAZ BOSS User: DARRELL ROJAS documented in this encounter Plan of Treatment Upcoming Encounters Date Type Department Care Team (Late st Contact Info) Description 04/09/2024 2:20 PM EDT Office Visit General Internal Medicine [facility] [address] [facility] [place] [address] Marija Cornelius MD [address] [place] [address] [place], [place] [address] 05/17/2024 2:30 PM EDT Office Visit Gastroenterology, [facility] [address] [place] [address] Tim Ruiz CRNP [address] [place] [address] 08/16/2024 3:00 PM EST Office Visit General Internal Medicine [facility] [address] [facility] [place], [place] [address] Mumtaz Boss MD [address] [place] [address] [place], [place] [address] Health Maintenance Due Date Last Done Comments Philip's Esophagus Surveilance 1935 COVID-19 Vaccine ( season) 2023 06/16/2023, 06/16/2023, 09/10/2022, Additional history exists Depression Screening 12/31/2023 12/30/2022, 03/01/2016 (Not indicated) Influenza Vaccine (FLU shot) (#1) 2024 07/14/2023, 06/19/2022, 06/13/2021, Additional history exists HbA1c 01/20/2025 01/21/2024, 04/0 12/2022, 07/01/2022, Additional history exists Albumin/Creatinine Ratio 07/01/2025 07/01/2022, /09/2014 DTaP,Tdap,and Td Vaccines (2 - Td or Tdap) 03/15/2027 03/15/2017 Pneumococcal Vaccine: 65+ Years Completed 09/30/2018, 02/22/2015, 08/11/2008 Zoster Vaccines Completed 08/07/2021, 10/31, 05/14/2018, Additional history exists HPV (Gardasil) Vaccine Aged Out No lo nger eligible based on patient's age to complete this topic Hepatitis B Vaccine Aged Out No longe r eligible based on patient's age to complete this topic MENINGOCOCCAL (MENACTRA/MENVEO) Aged Out No longer eligible based on patient's age to complete this topic documented as of this encounter Medical Devices Implanted Type Area Marine Diesel Technician Device Identifier Shelf Expiration Date Model / Serial / Lot Lens 17.0 Mx60 - [id number] - [id number] Implanted:Qty: 1 on 2018 by Vinny Whyte MD at OR [facility] Right: Eye [employer] : SURGICAL 08/28/2020 MX60-17.0 / [id number] / [id number] Lens 16.0 Mx60 - [id number] - [id number] Implanted:Qty: 1 on 01/13/2018 by Vinny Whyte MD at OR [facility] Left: Eye [employer] : SURGICAL 06/28/2022 MX60-16.0 / [id number] / [id number] documented as of this encounter Visit Diagnoses Diagnosis HTN, goal below 150/90 documented in this encounter Advance Directives * Full Code (Latest Code Status on File) Date Activated Date Inactivated Comments 01/13/2018 11:29 AM 01/13/2018 6:17 PM This order reflects the patients wishes and were consensually agreed upon. * Full Code Date Activated Date Inactivated Comments 2018 8:51 AM 2018 4:33 PM This order r eflects the patients wishes and were consensually agreed upon. Care Teams Accounting Manager Assistant Controller Relationship Specialty Start Date End Date Mumtaz Boss MD [address] [place] [address] PCP - General Internal Medicine 12/04/11 documented as of this encounter
--- OUTSIDE RECORDS SUMMARY | 2024-04-10 07:39 | External Medical Summary | Summary of Care ---
Author Name Unknown Organization [facility] Address [address] [place] [address] Phone [phone] Care Team Providers Care Software Configuration Engineer Name Role Phone Mumtaz Loza MD Primary Care Provider + Reason for Visit * Reason Onset Date Comments Referral 01/22/2024 Encounter Details Date Type Department Care Team (Late st Contact Info) Description 01/22/2024 Telephone Urology [facility] Peter [address] [place] [phone] Tanisha Palacios PA-C [address] [place] [address] Referral Allergies No known active allergiesdocumented as of [...] Treated with chemo and xrt 05/2019 in [place], follows at [facility] History of bladder cancer 03/24/2018 Gastroesophageal reflux [...] treated with RFA, follows with doctors in [place] - EGD 6 months 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 03/24/20 18 UGI bleed 01/20/2012 09/19/2017 Overview: 2012 - biopsies in [place] is benign HTN, goal below 140/90 12/04/201108/15 GERD (gastroesophageal reflux disease) 12/04/2011 03/24/2018 Bladder cancer 12/04/2011 03/24/2018 Overview: Dx 1989', sees urology in [place] 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 01/20/20 12 documented as of this encounter (statuses as of 01/23/2024) Immunizations Name Administration Dates Next Due COVID-19 mRNA, LNP-s, No Pre serve, 2-Dose Series (Solairedirect) 07/02/2021,12/16/2020,11/25/2020 Covid-19, Mrna, Lnp-s, Pf, B ivalent, 30 Mcg, IM, 12 yrs and above (Solairedirect) 06/16/2023 Pneumococcal Conjugate Vacc, 13 Valent (Prevnar) [...] encounter Miscellaneous Notes * Telephone Encounter - Myriam Blue MED ASSIST - 01/22/2024 9:26 AM EDT Lmom to call back to schedule Urology appt. Pt has a referral. Can schedule with Tanisha. documented in this encounter Plan of Treatment Upcoming Encounters Date Type Department Care Team (Late st Contact Info) Description 05/17/2024 2:30 PM EDT Office Visit Gastroenterology, [facility] [address] [facility] [place] [address] Tim Ruiz CRNP 132 [facility] [place] [address] 08/16/2024 3:20 PM EST Office Visit General Internal Medicine Ronald Til[address] [place] [address] [place] [address] Mumtaz Loza MD [address] [facility] [place] [address] Health Maintenance Due Date Last Done Comments [...] this encounter Medical Devices Implanted Type Area Eyeglass Assembler Device Identifier Shelf Expiration Date Model / Serial / Lot Lens 17.0 Mx60 - [id number] - [id number] Implanted:Qty: 1 on 2018 by Vinny Whyte MD at OR [facility] Right: Eye [employer]OM[employer] : SURGICAL 08/28/2020 MX60-17.0 / [id number] / [id number] Lens 16.0 Mx60 - [id number] - [id number] Implanted:Qty: 1 on 01/13/2018 by Vinny Whyte MD at OR [facility] Left: Eye BAUSCH [employer] LOMB : SURGICAL 06/28/2022 MX60-16.0 / [id number] / [id number] documented as of this encounter Advance Directives Latest Code Status [...] and were consensually agreed upon. Care Teams Software Configuration Engineer Relationship Specialty Start Date End Date Mumtaz Loza MD [address] [place] [address] PCP - General Internal Medicine 12/04/11 documented as of this encounter
--- OUTSIDE RECORDS SUMMARY | 2024-04-10 07:39 | External Medical Summary ---
Author Name Unknown Address Unknown Organization K01:[facility] [address] Laboratory Report Ordering Provider Test Date Status GERA HERNÁNDEZ 01/21/2024 16:17:48 Final Observation Date Value Abnormality Reference (Units ) Status SYNC LEUKOCYTES IN BLOOD BY AUTOMATED COUNT 01/21/2024 16:17:48 7.29 4.00-10.80 (K/uL) Final Segs 01/21/2024 16:17:48 61.2 40.0-75.0 (%) Final Lymphs % 01/21/2024 16:17:48 26.1 18.0-42.0 (%) Final Monos 01/21/2024 16:17:48 11.4 Above high normal 1.0-11.0 (%) Final Eosinophils 01/21/2024 16:17:48 0.5 0.0-6.0 (%) Final Basos 01/21/2024 16:17:48 0.5 0.0-2.0 (%) Final Immature Granulocyte, Percent 01/21/2024 16:17:48 0.3 0.0-2.0 (%) Final Absolute Segs 01/21/2024 16:17:48 4.46 1.80-7.70 (K/uL) Final Lymphs, absolute 01/21/2024 16:17:48 1.90 1.00-4.80 (K/ul) Final Monos, Abs 01/21/2024 16:17:48 0.83 0.00-1.10 (K/uL) Final Eos, Abs 01/21/2024 16:17:48 0.04 0.00-0.70 (K/uL) Final Basos, Abs 01/21/2024 16:17:48 0.04 0.00-0.20 (K/uL) Final Immature Granulocytes, Number 01/21/2024 16:17:48 0.02 0.00-0.20 (K/uL) Final Performing Location [facility] - [address] [facility] [address]
--- OUTSIDE RECORDS SUMMARY | 2024-04-10 07:39 | External Medical Summary | Summary of Care ---
Author Name Unknown Organization [facility] Address [address] [place] [address] Phone [phone] Care Team Providers Care Leather Tacker Name Role Phone Mumtaz Boss MD Primary Care Provider + Reason for Visit * Reason Comments eRx-Medication Refill Encounter Details Date Type Department Care Team (Late st Contact Info) Description 03/29/2024 Telephone General Internal Medicine [facility] 200 [facility] [place] [address] Mumtaz Boss MD [address] [place] [address] eRx-Medication Refill Allergies No known active allergiesdocumented as of this encounter (statuses as of 03/30/2024) Medications Medication Sig Dispensed Refills Start Date [...] for 10 days. 15 mL 08/01/2022 Active amLODIPine Besylate 10 MG Oral [...] TABLET DAILY 90 Tablet 3 03/30/2024 Active Lisinopril 10 MG Oral Tablet (Prinivil)Indica tions:HTN, goal below 150/90 TAKE 1 TABLET DAILY 90 Tablet 12/30/2023 4 Discontinued documented as of this encounter (statuses as of 03/30/2024) Active Problems Problem Noted Date Diagnosed Date Mild aortic regurgitation 01/24/2023 Prediabetes 01/02/2022 Encephalopathy 05/27/2019 RAMU (generalized anxiety disorder) 11/04/2018 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 04/14/2018 Overview: Treated with chemo and xrt 05/2019 in [place], follows at [facility] History of bladder cancer 03/24/2018 Gastroesophageal reflux disease with esophagitis 03/24/2018 H/O: upper GI bleed 09/19/2017 Overview: 2011 Hearing loss 02/22/2015 HTN, goal below 150/90 08/15/2014 Aspirin contraindicated 01/20/2012 documented as of this encounter (statuses as of 03/30/2024) Resolved Problems Problem Noted Date Diagnosed Date Resolved Date Chronic kidney disease, stage 3a 12/04/2020 07/01/2022 Overview: Per CKD protocol History of esophageal cancer 05/19/2019 06/15/2019 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 - treated with RFA, follows with doctors in [place] - EGD 6 months 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 03/24/20 18 UGI bleed 01/20/2012 09/19/2017 Overview: 2012 - biopsies in [place] is benign HTN, goal below 140/90 12/04/201108/15 GERD (gastroesophageal reflux disease) 12/04/2011 03/24/2018 Bladder cancer 12/04/2011 03/24/2018 Overview: Dx 1989', sees urology in [place] 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 01/20/20 12 documented as of this encounter (statuses as of 03/30/2024) Immunizations Name Administration Dates Next Due COVID-19 mRNA, LNP-s, No Pre serve, 2-Dose Series (CloudCheckr) 07/02/2021,12/16/2020,11/25/2020 Covid-19, Mrna, Lnp-s, Pf, B ivalent, 30 Mcg, IM, 12 yrs and above (CloudCheckr) 06/16/2023 Pneumococcal Conjugate Vacc, 13 Valent (Prevnar) [...] encounter Miscellaneous Notes * Telephone Encounter - Mumtaz Boss MD - 03/30/2024 9:57 AM EDT Remind has labs due! See 01/28/24 phone * Telephone Encounter - Mumtaz Boss MD - 03/30/2024 9:57 AM EDTSigned Prescriptions: Disp Refills Lisinopril 10 MG Oral Tablet (Prinivil) 90 Tab*3 Sig: TAKE 1 TABLET DAILY Authorizing Provider: MUMTAZ BOSS * Telephone Encounter - Socorro Goss [facility] - 03/30/2024 6:33 AM EDT Pending Prescriptions: Disp Refills Lisinopril 10 MG Oral Tablet (Prinivil) 90 Tab*3 Sig: TAKE 1 TABLET DAILY Electronically signed by Socorro Goss [facility] at 03/30/2024 6:33 AM EDT * Telephone Encounter - Socorro Goss [facility] - 03/30/2024 6:33 AM EDT Creatinine went from 1.0 to 1.6 CREAT Date Value Ref Range Status 01/21/2024 1.6 (H) 0.6 - 1.2 mg/dL Final 12/31/2022 1.0 0.6 - 1.2 mg/dL Final 07/01/2022 1.1 0.6 - 1.2 mg/dL Final Electronically signed by Socorro Goss [facility] at 03/30/2024 6:33 AM EDT documented in this encounter Plan of Treatment Upcoming Encounters Date Type Department Care Team (Late st Contact Info) Description 05/17/2024 2:30 PM EDT Office Visit Gastroenterology, [facility] [address] [place] [address] Tim Ruiz CRNP [address] [place] [address] 08/16/2024 3:00 PM EST Office Visit General Internal Medicine Ronald Tilley [place] 200 [facility] [place] [address] Mumtaz Boss MD 200 [facility] [place] [address] Health Maintenance Due Date Last Done Comments [...] Completed 08/07/2021, 10/31, 05/14/2018, Additional history exists GARDASIL-HPV IMMUNIZATION SERIES Aged Out No longer eligible based on patient's age to complete this topic Hepatitis B Aged Out No longer eligi ble based on patient's age to complete this topic MENINGOCOCCAL (MENACTRA/MENVEO) Aged Out No longer eligible based on patient's age to complete this topic documented as of this encounter Medical Devices Implanted Type Area Internal Medicine Hospitalist Device Identifier Shelf Expiration Date Model / Serial / Lot Lens 17.0 Mx60 - [id number] - [id number] Implanted:Qty: 1 on 2018 by Vinny Whyte MD at OR [facility] Right: Eye [employer] LOMB : SURGICAL 08/28/2020 MX60-17.0 / [id number] / [id number] Lens 16.0 Mx60 - [id number] - [id number] Implanted:Qty: 1 on 01/13/2018 by Vinny Whyte MD at OR [facility] Left: Eye BAUSCH [employer] LOMB : SURGICAL 06/28/2022 MX60-16.0 / [id number] / [id number] documented as of this encounter Visit Diagnoses [...] and were consensually agreed upon. Care Teams Leather Tacker Relationship Specialty Start Date End Date Mumtaz Boss MD 200 [facility] [place] [address] PCP - General Internal Medicine 12/04/11 documented as of this encounter
--- OUTSIDE RECORDS SUMMARY | 2024-04-10 07:39 | External Medical Summary | Summary of Care ---
Author Name Unknown Organization [facility] Address [address] [place] [address] Phone [phone] Care Team Providers Care Block Placer Name Role Phone Mumtaz Loza MD Primary Care Provider + Encounter Details Date Type Department Care Team (Late st Contact Info) Description 01/23/2024 Orders Only PATIENT PORTAL DO NOT DELETE THIS DEPT USED BY [facility] [place] [id number] Allergies No known active allergiesdocumented as of [...] Treated with chemo and xrt 05/2019 in [place], follows at [place] [facility] History of bladder cancer 03/24/2018 Gastroesophageal reflux [...] treated with RFA, follows with doctors in [place] - EGD 6 months 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 03/24/20 18 UGI bleed 01/20/2012 09/19/2017 Overview: 2012 - biopsies in [place] is benign HTN, goal below 140/90 12/04/201108/15 GERD (gastroesophageal reflux disease) 12/04/2011 03/24/2018 Bladder cancer 12/04/2011 03/24/2018 Overview: Dx 1990's, sees urology in [place] 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 01/20/20 12 documented as of this encounter (statuses as of 01/23/2024) Immunizations Name Administration Dates Next Due COVID-19 mRNA, LNP-s, No Pre serve, 2-Dose Series ([employer]) 07/02/2021,12/16/2020,11/25/2020 Covid-19, Mrna, Lnp-s, Pf, B ivalent, [...] 05/17/2024 2:30 PM EDT Office Visit Gastroenterology, [facility] [address] [place] [address] Tim Ruiz CRNP [address] [place] [address] 08/16/2024 3:20 PM EST Office Visit General Internal Medicine [facility] 200 [facility] [place] [address] Mumtaz Loza MD 200 [facility] [place] [address] Health Maintenance Due Date Last Done Comments [...] this encounter Medical Devices Implanted Type Area Dairy Manufacturing Technologist Device Identifier Shelf Expiration Date Model / Serial / Lot Lens 17.0 Mx60 - [id number] - [id number] Implanted:Qty: 1 on 2018 by Vinny Whyte MD at OR [facility] Right: Eye BAUSCH [employer] LOMB : SURGICAL 08/28/2020 MX60-17.0 / [id number] / [id number] Lens 16.0 Mx60 - [id number] - [id number] Implanted:Qty: 1 on 01/13/2018 by Vinny Whyte MD at OR [facility] Left: Eye BAUSCH [employer] LOMB : SURGICAL 06/28/2022 MX60-16.0 / [id number] / [id number] documented as of this encounter Advance Directives [...] and were consensually agreed upon. Care Teams Block Placer Relationship Specialty Start Date End Date Mumtaz Loza MD [address] [facility] [address] PCP - General Internal Medicine 12/04/11 documented as of this encounter
--- OUTSIDE RECORDS SUMMARY | 2024-04-10 07:39 | External Medical Summary | Summary of Care ---
Author Name Unknown Organization [facility] Address [address] [place] [address] Phone [phone] Care Team Providers Care Customs Compliance Specialist Name Role Phone Mumtaz Loza MD Primary Care Provider + Reason for Visit * Reason Onset Date Comments Referral 01/22/2024 Encounter Details Date Type Department Care Team (Late st Contact Info) Description 01/22/2024 Telephone Urology Coty Peter [address] [place] [phone] Tanisha Palacios PA-C [address] [place] [address] Referral Allergies No known active allergiesdocumented as of this encounter (statuses as of 02/06/2024) Medications Medication Sig Dispensed Refills Start Date [...] as of this encounter (statuses as of 02/06/2024) Active Problems Problem Noted Date Diagnosed Date Mild aortic regurgitation 01/24/2023 Prediabetes 01/02/2022 Encephalopathy 05/27/2019 RAMU (generalized anxiety disorder) 11/04/2018 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 04/14/2018 Overview: Treated with chemo and xrt 05/2019 in [place], follows at 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 - treated with RFA, follows with doctors in [place] - EGD 6 months 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 03/24/20 18 UGI bleed 01/20/2012 09/19/2017 Overview: 2012 - biopsies in [place] is benign HTN, goal below 140/90 12/04/201108/15 GERD (gastroesophageal reflux disease) 12/04/2011 03/24/2018 Bladder cancer 12/04/2011 03/24/2018 Overview: Dx 1989', sees urology in [place] 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 01/20/20 12 documented as of this encounter (statuses as of 02/06/2024) Immunizations Name Administration Dates Next Due COVID-19 mRNA, LNP-s, No Pre serve, 2-Dose Series (DogVacay) 07/02/2021,12/16/2020,11/25/2020 Covid-19, Mrna, Lnp-s, Pf, B ivalent, 30 Mcg, IM, 12 yrs and above (DogVacay) 06/16/2023 Pneumococcal Conjugate Vacc, 13 Valent (Prevnar) [...] Encounter - Myriam Blue MED ASSIST - 02/06/2024 8:47 AM EDT Lmom to call back. Sent final letter. * Telephone Encounter - Myriam Blue MED ASSIST - 01/29/2024 2:08 PM EDT Lmom to call back. Sent letter. * Telephone Encounter - Myriam Blue MED ASSIST - 01/22/2024 9:26 AM EDT Lmom to call back to schedule Urology appt. Pt has a referral. Can schedule with Tanisha. documented in this encounter Plan of Treatment Upcoming Encounters Date Type Department Care Team (Late st Contact Info) Description 05/17/2024 2:30 PM EDT Office Visit G[facility], [facility] [address] [place] [address] Tim Ruiz CRNP [address] [place] [address] 08/16/2024 3:20 PM EST Office Visit General Internal Medicine Ronald Tilley [place] 200 [facility] [place] [address] Mumtaz Loza MD 200 [facility] [place] [address] Health Maintenance Due Date Last Done Comments [...] this encounter Medical Devices Implanted Type Area Fine Chemicals Operator Device Identifier Shelf Expiration Date Model / Serial / Lot Lens 17.0 Mx60 - [id number] - [id number] Implanted:Qty: 1 on 2018 by Vinny Whyte MD at OR [facility] Right: Eye BAUSCH & LOMB : SURGICAL 08/28/2020 MX60-17.0 / [id number] / [id number] Lens 16.0 Mx60 - [id number] - [id number] Implanted:Qty: 1 on 01/13/2018 by Vinny Whyte MD at OR [facility] Left: Eye BAUSCH & LOMB : SURGICAL 06/28/2022 MX60-16.0 / [id number] / [id number] documented as of this encounter Advance Directives [...] and were consensually agreed upon. Care Teams Customs Compliance Specialist Relationship Specialty Start Date End Date Mumtaz Loza MD 200 [place] [address] PCP - General Internal Medicine 12/04/11 documented as of this encounter
--- OUTSIDE RECORDS SUMMARY | 2024-04-10 07:39 | External Medical Summary ---
Author Name Unknown Address Unknown Organization K01:[facility] [address] [facility] [address] Laboratory Report Ordering Provider Test Date Status GERA HERNÁNDEZ 01/21/2024 16:17:48 Final Observation Date Value Abnormality Reference (Units ) Status HbA1C 01/21/2024 16:17:48 5.9 Above high normal 4. 0-5.6 (%) Final The use of HbA1c to monitor glycemic status is based on normal hemoglobin and HbA composition. This test should not be used in patients with abnormal hemoglobin that affects the half life of the red blood cell or the in vivo glycation rates. Glucose, estimated average 01/21/2024 16:17:48 123 <126 (mg/dL) Final Performing Location [facility] [address] [facility] [address]
--- OUTSIDE RECORDS SUMMARY | 2024-04-10 07:39 | External Medical Summary ---
Author Name Unknown Address Unknown Organization K01:LABORATORY [facility] - [address] [place] [address] Laboratory Report Ordering Provider Test Date Status GERA HERNÁNDEZ 01/21/2024 16:17:48 Final Observation Date Value Abnormality Reference (Units ) Status Magnesium 01/21/2024 16:17:48 1.9 1.5-2.6 (m g/dL) Final Performing Location LABORATORY [facility] - [address] [place] [address]
--- OUTSIDE RECORDS SUMMARY | 2024-04-10 07:39 | External Medical Summary | Summary of Care ---
Author Name Unknown Organization [facility] Address [address] [place] [address] Phone [phone] Care Team Providers Care Business Project Manager Name Role Phone Mumtaz Loza MD Primary Care Provider + Reason for Visit * Reason Onset Date Comments Test Results 01/28/202401/27, 02/17 Encounter Details Date Type Department Care Team (Late st Contact Info) Description 01/28/2024 Telephone General Internal Medicine [facility] 200 [place] [address] Mumtaz Loza MD 200 [facility] [place] [place] [address] Test Results (01/27, 02/17) Allergies No known active allergiesdocumented as of this encounter (statuses as of 02/20/2024) Medications Medication Sig Dispensed Refills Start Date [...] TAKE 1 TABLET DAILY 90 Tablet 12/30/2023 Active documented as of this encounter (statuses as of 02/20/2024) Active Problems Problem Noted Date Diagnosed Date Mild aortic regurgitation 01/24/2023 Prediabetes 01/02/2022 Encephalopathy 05/27/2019 RAMU (generalized anxiety disorder) 11/04/2018 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 04/14/2018 Overview: Treated with chemo and xrt 05/2019 in [place], follows at [facility] History of bladder cancer 03/24/2018 Gastroesophageal reflux disease with esophagitis 03/24/2018 H/O: upper GI bleed 09/19/2017 Overview: 2011 Hearing loss 02/22/2015 HTN, goal below 150/90 08/15/2014 Aspirin contraindicated 01/20/2012 documented as of this encounter (statuses as of 02/20/2024) Resolved Problems Problem Noted Date Diagnosed Date Resolved Date Chronic kidney disease, stage 3a 12/04/2020 07/01/2022 Overview: Per CKD protocol History of esophageal cancer 05/19/2019 06/15/2019 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 - treated with RFA, follows with doctors in [place] - EGD 6 months 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 03/24/20 18 UGI bleed 01/20/2012 09/19/2017 Overview: 2012 - biopsies in [place] is benign HTN, goal below 140/90 12/04/201108/15 GERD (gastroesophageal reflux disease) 12/04/2011 03/24/2018 Bladder cancer 12/04/2011 03/24/2018 Overview: Dx 1989', sees urology in [place] 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 01/20/20 12 documented as of this encounter (statuses as of 02/20/2024) Immunizations Name Administration Dates Next Due COVID-19 mRNA, LNP-s, No Pre serve, 2-Dose Series ([employer] Information) 07/02/2021,12/16/2020,11/25/2020 Covid-19, Mrna, Lnp-s, Pf, B ivalent, 30 Mcg, IM, 12 yrs and above ([employer] Information) 06/16/2023 Pneumococcal Conjugate Vacc, 13 Valent (Prevnar) [...] encounter Miscellaneous Notes * Telephone Encounter - Macarena Parra LPN - 02/20/2024 5:40 PM EDT Called, left message for patient to return call. Letter has been sent * Telephone Encounter - Macarena Parra LPN - 02/18/2024 5:36 PM EDT Called, left message for patient to return call. Letter has been sent Thank you * Telephone Encounter - Nat Ruiz MED ASSIST - 01/28/2024 5:13 PM EDT Called patient, left message to return call. * Telephone Encounter - Nat Ruiz MED ASSIST - 01/28/2024 5:13 PM EDT ----- Message from Mumtaz Loza MD sent at 01/28/2024 8:42 AM EDT ----- 1. Gfr is decreased, recheck bmp 1 week to follow 2. Calcium is rising, make sure no calcium supplements, recheck this 1 week to follow 3. Please move up gi and schedule urology and renal u/s alejandro 4. Has pre-dm, this is stable 5. No anemia and urine clear documented in this encounter Plan of Treatment Upcoming Encounters Date Type Department Care Team (Late st Contact Info) Description 05/17/2024 2:30 PM EDT Office Visit Gastroenterology, [facility] [address] [place] [address] Tim Ruiz CRNP [address] [place] [address] 08/16/2024 3:20 PM EST Office Visit General Internal Medicine [facility] 200 [facility] [place] [address] Mumtaz Loza MD 200 [facility] [place] [address] Health Maintenance Due Date Last Done Comments [...] this encounter Medical Devices Implanted Type Area Reinforcing Bar Setter Device Identifier Shelf Expiration Date Model / Serial / Lot Lens 17.0 Mx60 - [id number] - [id number] Implanted:Qty: 1 on 2018 by Vinny Whyte MD at OR [facility] Right: Eye BAUSCH [employer] LOMB : SURGICAL 08/28/2020 MX60-17.0 / [id number] / [id number] Lens 16.0 Mx60 - [id number] - [id number] Implanted:Qty: 1 on 01/13/2018 by Vinny Whyte MD at OR [facility] Left: Eye BAUSCH & LOMB : SURGICAL 06/28/2022 MX60-16.0 / [id number] / [id number] documented as of this encounter Advance Directives * Full Code (Latest Code Status on File) Date Activated Date Inactivated Comments 01/13/2018 11:29 AM 01/13/2018 6:17 PM This order reflects the patients wishes and were consensually agreed upon. * Full Code Date Activated Date Inactivated Comments 2018 8:51 AM 2018 4:33 PM This order r eflects the patients wishes and were consensually agreed upon. Care Teams Business Project Manager Relationship Specialty Start Date End Date Mumtaz Loza MD 200 [place] [address] PCP - General Internal Medicine 12/04/11 documented as of this encounter
--- OUTSIDE RECORDS SUMMARY | 2024-04-10 07:39 | External Medical Summary | Summary of Care ---
Author Name Unknown Organization [facility] Address [address] [place] [address] Phone [phone] Care Team Providers Care Solder Making Laborer Name Role Phone Mumtaz Boss MD Primary Care Provider + Reason for Visit * Reason Comments eRx-Medication Refill Encounter Details Date Type Department Care Team (Late st Contact Info) Description 12/30/2023 Refill General Internal Medicine [facility] [address] [place] [address] Mumtaz Boss MD [address] [place] [address] HTN, goal below 150/90 Allergies No known active allergiesdocumented as of this encounter (statuses as of 12/30/2023) Medications Medication Sig Dispensed Refills Start Date [...] 05/09/2021 Active Clotrimazole 1 % External Solution (Mycelex)Indicati ons:Otomycosis Place 4 drops in both ears twice a day for 10 days. 15 mL 0 08/01/2022 Active amLODIPine Besylate 10 MG Oral Tablet (Norvasc)Indicati ons:HTN, goal below 150/90 TAKE 1 TABLET by mouth DAILY 90 Tablet 3 04/15/2023 Active Acetaminophen ER 650 MG Oral Tablet Extended Release (Tylenol ER) Take 1 Tablet by mouth. 0 Active Pantoprazole Sodium 40 MG Oral Tablet Delayed Release (Protonix)Indicat ions:Malignant neoplasm of lower third of esophagus (HCC) Take by mouth 1 Tablet in the morning. 30 Tablet 5 09/10/2023 Active Metoprolol Succinate ER 50 MG Oral Tablet Extended Release 24 Hour (toPROL XL)Indications:HT N, goal below 150/90 TAKE 1 TABLET IN THE MORNING AND 1 TABLET BEFORE BEDTIME 180 Tablet 3 12/09/2023 Active Lisinopril 10 MG Oral Tablet (Prinivil)Indicat ions:HTN, goal below 150/90 TAKE 1 TABLET DAILY 90 Tablet 0 12/30/2023 Active Lisinopril 10 MG Oral Tablet (Prinivil)Indicat ions:HTN, goal below 150/90 TAKE 1 TABLET DAILY 90 Tablet 3 01/03/2023 12/30/2023 Discontinued documented as of this encounter (statuses as of 12/30/2023) Active Problems Problem Noted Date Diagnosed Date Mild aortic regurgitation 01/24/2023 Prediabetes 01/02/2022 Encephalopathy 05/27/2019 RAMU (generalized anxiety disorder) 11/04/2018 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 04/14/2018 Overview: Treated with chemo and xrt 05/2019 in [place], follows at [facility] History of bladder cancer 03/24/2018 Gastroesophageal reflux disease with esophagitis 03/24/2018 H/O: upper GI bleed 09/19/2017 Overview: 2011 Hearing loss 02/22/2015 HTN, goal below 150/90 08/15/2014 Aspirin contraindicated 01/20/2012 documented as of this encounter (statuses as of 12/30/2023) Resolved Problems Problem Noted Date Diagnosed Date Resolved Date Chronic kidney disease, stage 3a 12/04/2020 07/01/2022 Overview: Per CKD protocol History of esophageal cancer 05/19/2019 06/15/2019 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 - treated with RFA, follows with doctors in [place] - EGD 6 months 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 03/24/20 18 UGI bleed 01/20/2012 09/19/2017 Overview: 2012 - biopsies in [place] is benign HTN, goal below 140/90 12/04/201108/15 GERD (gastroesophageal reflux disease) 12/04/2011 03/24/2018 Bladder cancer 12/04/2011 03/24/2018 Overview: Dx , sees urology in [place] 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 01/20/20 12 documented as of this encounter (statuses as of 12/30/2023) Immunizations Name Administration Dates Next Due COVID-19 mRNA, LNP-s, No Pre serve, 2-Dose Series (Yotpo) 07/02/2021,12/16/2020,11/25/2020 Covid-19, Mrna, Lnp-s, Pf, B ivalent, 30 Mcg, IM, 12 yrs and above (Yotpo) 06/16/2023 Pneumococcal Conjugate Vacc, 13 Valent (Prevnar) [...] encounter Miscellaneous Notes * Telephone Encounter - Driss Mcdonnell RP - 12/30/2023 5:57 PM EDT Patient has lab orders pending, with office visit scheduled for 01/21/2024. Authorizing refill(s) ofmed(s) until then. Thanks, Je Mulligan.Ph. Clinical Pharmacist [facility] [phone] ext [phone] 12/30/2023,5:57 PM * Telephone Encounter - Driss Mcdonnell RPh - 12/30/2023 5:57 PM EDTSigned Prescriptions: Disp Refills Lisinopril 10 MG Oral Tablet (Prinivil) 90 Tab*0 Sig: TAKE 1 TABLET DAILY Authorizing Provider: MUMTAZ BOSS Ordering User: DRISS MCDONNELL documented in this encounter Plan of Treatment Upcoming Encounters Date Type Department Care Team (Late st Contact Info) Description 01/21/2024 3:40 PM EDT Office Visit General Internal Medicine [facility] [address] [place] [address] Mumtaz Boss MD [address] [facility] [place] [address] Health Maintenance Due Date Last Done Comments Philip's Esophagus Surveilance 1935 COVID-19 Vaccine ( season) 2023 06/16/2023, 06/16/2023, 09/10/2022, Additional history exists Depression Screening 12/31/2023 12/30/2022, 03/01/2016 (Not indicated) HbA1c 01/01/2024 12/31/2022, 11/2021, 01/01/2022 Albumin/Creatinine Ratio 07/01/2025 07/01/2022, 01/28 DTaP,Tdap,and Td [...] this encounter Medical Devices Implanted Type Area Gymnastics Coach Or Instructor Device Identifier Shelf Expiration Date Model / Serial / Lot Lens 17.0 Mx60 - [id number] - [id number] Implanted:Qty: 1 on 2018 by Vinny Whyte MD at OR [facility] Right: Eye [employer] : SURGICAL 08/28/2020 MX60-17.0 / [id number] / [id number] Lens 16.0 Mx60 - [id number] - [id number] Implanted:Qty: 1 on 01/13/2018 by Vinny Whyte MD at OR [facility] Left: Eye [employer]OM[employer] : SURGICAL 06/28/2022 MX60-16.0 / [id number] / [id number] documented as of this encounter Visit Diagnoses Diagnosis HTN, goal below 150/90 documented in this encounter Advance Directives Latest [...] and were consensually agreed upon. Care Teams Solder Making Laborer Relationship Specialty Start Date End Date Mumtaz Boss MD [address] [place] [address] PCP - General Internal Medicine 12/04/11 documented as of this encounter
--- OUTSIDE RECORDS SUMMARY | 2024-04-10 07:39 | External Medical Summary ---
Author Name Unknown Address Unknown Organization K09:[facility] [place] [address] Laboratory Report Ordering Provider Test Date Status GERA HERNÁNDEZ 01/23/2024 09:41:18 Final Observation Date Value Abnormality Reference (Units ) Status Color of Urine by Auto 01/23/2024 09:41:18 Yellow Colorless, Light Yellow, Yellow, Dark Yellow Final Clarity, Urine 01/23/2024 09:41:18 Clear Clear Final Glucose [Mass/volume] in Urine by Automated test strip 01/23/2024 09:41:18 Negative Negative (mg/dL) Final Bilirubin.total [Presence] in Urine by Automated test strip 01/23/2024 09:41:18 Negative Negative Final Ketones [Mass/volume] in Urine by Automated test strip 01/23/2024 09:41:18 Negative Negative (mg/dL) Final Specific gravity, Urine 01/23/2024 09:41:18 1.015 1.003-1.030 Final Hemoglobin [Presence] in Urine by Automated test strip 01/23/2024 09:41:18 Negative Negative Final pH, Urine 01/23/2024 09:41:18 7.0 5.0-7.5 (Units) Final Protein [Mass/volume] in Urine by Automated test strip 01/23/2024 09:41:18 Negative Negative (mg/dL) Final Urobilinogen [Mass/volume] in Urine by Automated test strip 01/23/2024 09:41:18 0.2 0.2, 1.0 (mg/dL) Final Nitrite [Presence] in Urine by Automated test strip 01/23/2024 09:41:18 Negative Negative Final Leukocyte esterase [Presence] in Urine by Automated test strip 01/23/2024 09:41:18 Negative Negative Final RBC, Urine 01/23/2024 09:41:18 0-2 0-2 (/HPF) Final WBC, Urine 01/23/2024 09:41:18 0-2 0-2 (/HPF) Final Bacteria [#/area] in Urine sediment by Microscopy high power field 01/23/2024 09:41:18 0-25 0-25 (/HPF) Final Performing Location [facility] [place] [address]
--- OUTSIDE RECORDS SUMMARY | 2024-04-10 07:39 | External Medical Summary | Summary of Care ---
Author Name Unknown Organization [facility] Address [address] [place] [address] Phone [phone] Care Team Providers Care Music Box Mechanic Name Role Phone Mumtaz Loza MD Primary Care Provider + Reason for Visit * Reason Comments Outpatient Testing Encounter Details Date Type Department Care Team (Late st Contact Info) Description 01/21/2024 4:30 PM EDT Laboratory Laboratory [facility] [address] [place] [id number] [facility] [address] [place] [address] Malignant neoplasm of lower third of esophagus (HCC); Dysphagia, unspecified type; Encounter for long-term (current) use of medications; Hydroureteronephrosis ; Prediabetes Allergies No known active allergiesdocumented as of this encounter (statuses as of 01/21/2024) Medications Medication Sig Dispensed Refills Start Date [...] as of this encounter (statuses as of 01/21/2024) Active Problems Problem Noted Date Diagnosed Date Mild aortic regurgitation 01/24/2023 Prediabetes 01/02/2022 Encephalopathy 05/27/2019 RAMU (generalized anxiety disorder) 11/04/2018 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 04/14/2018 Overview: Treated with chemo and xrt 05/2019 in [place], follows at [facility] History of bladder cancer 03/24/2018 Gastroesophageal reflux disease with esophagitis 03/24/2018 H/O: upper GI bleed 09/19/2017 Overview: 2011 Hearing loss 02/22/2015 HTN, goal below 150/90 08/15/2014 Aspirin contraindicated 01/20/2012 documented as of this encounter (statuses as of 01/21/2024) Resolved Problems Problem Noted Date Diagnosed Date Resolved Date Chronic kidney disease, stage 3a 12/04/2020 07/01/2022 Overview: Per CKD protocol History of esophageal cancer 05/19/2019 06/15/2019 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 - treated with RFA, follows with doctors in [place] - EGD 6 months 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 03/24/20 18 UGI bleed 01/20/2012 09/19/2017 Overview: 2012 - biopsies in [place] is benign HTN, goal below 140/90 12/04/201108/15 GERD (gastroesophageal reflux disease) 12/04/2011 03/24/2018 Bladder cancer 12/04/2011 03/24/2018 Overview: Dx , sees urology in [place] 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 01/20/20 12 documented as of this encounter (statuses as of 01/21/2024) Immunizations Name Administration Dates Next Due COVID-19 mRNA, LNP-s, No Pre serve, 2-Dose Series (Gotuit) 07/02/2021,12/16/2020,11/25/2020 Covid-19, Mrna, Lnp-s, Pf, B ivalent, 30 Mcg, IM, 12 yrs and above (Gotuit) 06/16/2023 Pneumococcal Conjugate Vacc, 13 Valent (Prevnar) [...] 05/17/2024 2:30 PM EDT Office [facility], [facility] [address] [facility] [place] [address] Tim Ruiz CRNP [address] [facility] [place] [address] 08/16/2024 3:20 PM EST Office Visit General Internal Medicine [facility] [address] [facility] [place] [address] Mumtaz Loza MD [address] [place] [address] Pending Results Name Type Priority Associated Diagnoses Date /Time COMPREHENSIVE METABOLIC PANEL Lab Routine Malignant neoplasm of lower third of esophagus (HCC) Dysphagia, unspecified type 01/21/2024 4:17 PM EDT CBC WITH WBC DIFFERENTIAL Lab Routine Malignant neoplasm of lower third of esophagus (HCC) 01/21/2024 4:17 PM EDT VITAMIN B12 Lab Routine Encounter for long-term (current) use of medications 01/21/2024 4:17 PM EDT MAGNESIUM Lab Routine Encounter for long-term (current) use of medications 01/21/2024 4:17 PM EDT HEMOGLOBIN A1C Lab Routine Prediabetes 01/21/2024 4:17 PM EDT CBC Lab Routine Malignant neoplasm of lower third of esophagus (HCC) 01/21/2024 4:17 PM EDT DIFFERENTIAL, AUTOMATED Lab Routine Malignant neoplasm of lower third of esophagus (HCC) 01/21/2024 4:17 PM EDT Health Maintenance Due Date Last Done Comments Philpi's Esophagus Surveilance 1935 COVID-19 Vaccine ( season) [...] this encounter Medical Devices Implanted Type Area Bumboater Device Identifier Shelf Expiration Date Model / Serial / Lot Lens 17.0 Mx60 - [id number] - [id number] Implanted:Qty: 1 on 2018 by Vinny Whyte MD at OR [facility] Right: Eye [employer] : SURGICAL 08/28/2020 MX60-17.0 / [id number] / [id number] Lens 16.0 Mx60 - [id number] - [id number] Implanted:Qty: 1 on 01/13/2018 by Vinny Whyte MD at OR [facility] Left: Eye BA[employer]CH [employer] LOMB : SURGICAL 06/28/2022 MX60-16.0 / [id number] / [id number] documented as of this encounter Visit Diagnoses Diagnosis 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 Care Teams Music Box Mechanic Relationship Specialty Start Date End Date Mumtaz Loza MD [address] [place] [address] PCP - General Internal Medicine 12/04/11 documented as of this encounter
--- OUTSIDE RECORDS SUMMARY | 2024-04-10 07:39 | External Medical Summary | Summary of Care ---
Author Name Unknown Organization [facility] Address [address] [place] [address] Phone [phone] Care Team Providers Care Carver And Checkerer Specials Name Role Phone Mumtaz Loza MD Primary Care Provider + Reason for Visit * Reason Onset Date Comments Referral 01/22/2024 Encounter Details Date Type Department Care Team (Late st Contact Info) Description 01/22/2024 Telephone Urology [facility] [address] [place] [phone] Tanisha Palacios PA-C [address] [place] [address] Referral Allergies No known active allergiesdocumented as of this encounter (statuses as of 01/29/2024) Medications Medication Sig Dispensed Refills Start Date [...] as of this encounter (statuses as of 01/29/2024) Active Problems Problem Noted Date Diagnosed Date Mild aortic regurgitation 01/24/2023 Prediabetes 01/02/2022 Encephalopathy 05/27/2019 RAMU (generalized anxiety disorder) 11/04/2018 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 - treated with RFA, follows with doctors in [place] - EGD 6 months 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 03/24/20 18 UGI bleed 01/20/2012 09/19/2017 Overview: 2012 - biopsies in [place] is benign HTN, goal below 140/90 12/04/201108/15 GERD (gastroesophageal reflux disease) 12/04/2011 03/24/2018 Bladder cancer 12/04/2011 03/24/2018 Overview: Dx 1989', sees urology in [place] 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 01/20/20 12 documented as of this encounter (statuses as of 01/29/2024) Immunizations Name Administration Dates Next Due COVID-19 mRNA, LNP-s, No Pre serve, 2-Dose Series (EDAN) 07/02/2021,12/16/2020,11/25/2020 Covid-19, Mrna, Lnp-s, Pf, B ivalent, 30 Mcg, IM, 12 yrs and above (EDAN) 06/16/2023 Pneumococcal Conjugate Vacc, 13 Valent (Prevnar) [...] 05/17/2024 2:30 PM EDT Office Visit Gastroenterology, [facility] [address] [place] [address] Tim Ruiz CRNP [address] [place] [address] 08/16/2024 3:20 PM EST Office Visit General Internal Medicine [facility] [address] [place] [address] Mumtaz Loza MD [address] [place] [address], [place] [address] Health Maintenance Due Date Last Done Comments Philip's Esophagus Surveilance 1935 COVID-19 Vaccine (2022- season) 2023 06/16/2023, 06/16/2023, 09/10/2022, Additional history [...] this encounter Medical Devices Implanted Type Area Vp Design Device Identifier Shelf Expiration Date Model / Serial / Lot Lens 17.0 Mx60 - [id number] - [id number] Implanted:Qty: 1 on 2018 by Vinny Whyte MD at OR [facility] Right: Eye [employer]OM[employer] : SURGICAL 08/28/2020 MX60-17.0 / [id number] / [id number] Lens 16.0 Mx60 - [id number] - [id number] Implanted:Qty: 1 on 01/13/2018 by Vinny Whyte MD at OR [facility] Left: Eye [employer]USCH [employer] LOMB : SURGICAL 06/28/2022 MX60-16.0 / [id number] / [id number] documented as of this encounter Advance Directives [...] and were consensually agreed upon. Care Teams Carver And Checkerer Specials Relationship Specialty Start Date End Date Mumtaz Loza MD [address] [facility] [place] [address] PCP - General Internal Medicine 12/04/11 documented as of this encounter
--- OUTSIDE RECORDS SUMMARY | 2024-04-10 07:39 | External Medical Summary | Summary of Care ---
Author Name Unknown Organization [facility] Address [address] [place] [address] Phone [phone] Care Team Providers Care Data Sciences Director Name Role Phone Mumtaz Loza MD Primary Care Provider + Reason for Referral * (Within 10 days (routine)) - Authorized Specialty Diagnoses / Procedures Referred By Contac t Referred To Contact Radiology Diagnoses Skin lump of leg, right Procedures US EXTREMITY, NON-VASCULAR LIMITED Mumtaz Loza MD [address] [place] [address] Referral ID Status Reason Start Date Expiration Date V isits Requested Visits Authorized [id number] Authorized 01/21/2024 999 999 * (Within 10 days (routine)) - Authorized Specialty Diagnoses / Procedures Referred By Contac t Referred To Contact Radiology Diagnoses Hydronephrosis, unspecified hydronephrosis type Procedures US RENAL Mumtaz Loza MD [address] [place] [address] Referral ID Status Reason Start Date Expiration Date V isits Requested Visits Authorized [id number] Authorized 01/21/2024 999 999 * Evaluate & Treat - Unlimited Visits (Within 3 days (urgent)) - Authorized Specialty Diagnoses / Procedures Referred By Contac t Referred To Contact Urology Diagnoses Hydronephrosis, unspecified hydronephrosis type Mumtaz Loza MD [address] [place] [address] Referral ID Status Reason Start Date Expiration Date Visits Requested Visits Authorized [id number] Authorized Specialty Services Required 01/21/2024 999 999 Question Answer Referral Priority Within 3 days (urgent) Where should this appointment be scheduled? [facility] What is the patient being referred for? Other Conditions Comments See ct Reason for Visit * Reason Comments Follow Up 6 month return Encounter Details Date Type Department Care Team (Latest Contact Info) Description 01/21/2024 3:40 PM EDT Office Visit [place] [facility] [place] [facility] [address] [place] [address] Mumtaz Loza MD [address] [facility] [place] [address] HTN, goal below 150/90*; Prediabetes; Malignant neoplasm of lower third of esophagus (HCC); RAMU (generalized anxiety disorder); Hydronephrosis, unspecified hydronephrosis type; History of bladder cancer; Skin lump of leg, right; Urinary incontinence, unspecified type; Calculus of bile duct without cholecystitis and without obstruction Allergies No known active allergiesdocumented as of [...] and xrt 05/2019 in [place], follows at [facility] History of bladder cancer 03/24/2018 [...] 01/20/2012 09/19/2017 Overview: 2012 - biopsies in [place] is benign HTN, goal below 140/90 12/04/201108/15 GERD (gastroesophageal reflux disease) 12/04/2011 03/24/2018 Bladder cancer 12/04/2011 03/24/2018 Overview: Dx 1989', sees urology in [place] 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 01/20/20 12 documented as of this encounter (statuses as of 01/21/2024) Immunizations Name Administration Dates Next Due COVID-19 mRNA, LNP-s, No Pre serve, 2-Dose Series ([employer]) 07/02/2021,12/16/2020,11/25/2020 Covid-19, Mrna, Lnp-s, Pf, B ivalent, 30 Mcg, IM, 12 yrs and above ([employer]) 06/16/2023 Pneumococcal Conjugate Vacc, 13 Valent (Prevnar) [...] Date Smoking Tobacco: Never Smokeless Tobacco: Never Tobacco Cessation:Counseling Given: Not Answered Alcohol Use Standard Drinks/Week Comments No 0 [...] on file documented as of this encounter Last Filed Vital Signs Vital Sign Reading Time Taken Comments Blood Pressure 130/70 01/21/2024 3:36 PM EDT Pulse 68 01/21/2024 3:36 PM EDT Temperature 35.3 C (95.6 F) 01/21/2024 3:36 PM ED T Respiratory Rate - - Oxygen Saturation 99% 01/21/2024 3:36 PM EDT Inhaled Oxygen Concentration - - Weight 82.2 kg (181 lb 3.2 oz) 01/21/2024 3:36 P M EDT Height 170.2 cm (5' 7") 01/21/2024 3:36 PM EDT Body Mass Index 28.38 01/21/2024 3:36 PM EDT documented in this encounter Progress Notes * Mumtaz Loza MD - 01/21/2024 4:03 PM EDT Chief Complaint Patient presents with Follow Up 6 month return SUBJECTIVE: Glenn Lancaster is a 89 year old male with PMH as below who presents for follow up htn, esophageal cancer, pre-DM. No cp, sob ,richey, eating ok now weight stable over past year. Never did see GI as left practice, he never rescheduled nor did he see urology. He notes had cramps in September, went to ER, is ok now. No n/v/d. He still goes to [place] for care, but didn't go this winter. Past 2 weeks occasional urinary leakage from penis, no pain or c/o blood. No fevers Patient Active Problem List Diagnosis Code Aspirin contraindicated HTN, goal below 150/90 I10 Hearing loss H91.90 H/O: upper GI bleed Z87.19 History of bladder cancer Z85.51 Gastroesophageal reflux disease with esophagitis K21.00 Malignant neoplasm of lower third of esophagus (HCC) C15.5 RAMU (generalized anxiety disorder) F41.1 Encephalopathy G93.40 Prediabetes R73.03 Mild aortic regurgitation I35.1 Current Outpatient Medications Medication Sig Dispense Refill [facility] Natural Products (Versly) TABS Take 2 Tabs by mouth daily. diphenhydrAMINE HCl 25 MG Oral Tablet (BENADRYL) Take 1 Tablet by mouth every 6 hours as needed forItching. Cetirizine HCl 10 MG Oral Tablet Take 1 Tablet by mouth in the morning. Clotrimazole 1 % External Solution (Mycelex) Place 4 drops in both ears twice a day for 10 days. 15mL 0 amLODIPine Besylate 10 MG Oral Tablet (Norvasc) TAKE 1 TABLET by mouth DAILY 90 Tablet 3 Acetaminophen ER 650 MG Oral Tablet Extended Release (Tylenol ER) Take 1 Tablet by mouth. Metoprolol Succinate ER 50 MG Oral Tablet Extended Release 24 Hour (toPROL XL) TAKE 1 TABLET IN THEMORNING AND 1 TABLET BEFORE BEDTIME 180 Tablet 3 Lisinopril 10 MG Oral Tablet (Prinivil) TAKE 1 TABLET DAILY 90 Tablet 0 Pantoprazole Sodium 40 MG Oral Tablet Delayed Release (Protonix) Take by mouth 1 Tablet in the morning. (Patient not taking: Reported on 01/21/2024) 30 Tablet 5 No current facility-administered medications for this visit. Review of patient's allergies indicates: No Known Allergies Health Maintenance Due Topic Date Due Philip's Esophagus Surveilance Never done COVID-19 Vaccine ( season) 2023 Depression Screening 12/31/2023 HbA1c 01/01/2024 ROS: CONSTITUTIONAL: No change in weight, No weakness, and No fevers, sweats, or chills EYE: No recent significant change in vision and No eye pain, redness, discharge EARS: No ear pain, No drainage, No tinnitus or vertigo, and No recent change in hearing PULMONARY: No cough, sputum, or hemoptysis, No wheezing, No rales, No shortness of breath, and No recent change in breathing CARDIOVASCULAR: No chest pain, No shortness of breath, No dyspnea on exertion, No orthopnea, No paroxysmal nocturnal dyspnea, No edema, No palpitations, and No syncope GASTROINTESTINAL: No abdominal pain, No change in bowel habits, No significant heartburn, No significant change in appetite, No nausea, vomiting, diarrhea, or constipation, No hematemesis, No blood in stools or black tarry stools, No abdominal bloating or early satiety, and No dysphagia ALL OTHER SYSTEMS NEGATIVE I reviewed social, PMH, PSH, and family history and updated where needed. Social History Socioeconomic History Marital status: Single Spouse name: Not on file Number of children: 1 Years of education: Not on file Highest education level: Not on file Occupational History Occupation: retired Occupation: [employer] Tobacco Use Smoking status: Never Smokeless tobacco: Never Substance and Sexual Activity Alcohol use: No Drug use: No Sexual activity: Not Currently Other Topics Concern Not on file Social History Narrative Not on file Social Determinants of Health Financial Resource Strain: Not on file Food Insecurity: No Food Insecurity (12/30/2022) Hunger Vital Sign Worried About Running Out of Food in the Last Year: Never true Ran Out of Food in the Last Year: Never true Transportation Needs: Not on file Physical Activity: Not on file Stress: Not on file Social Connections: Not on file Intimate Partner Violence: Not on file Housing Stability: Not on file Past Medical History: Diagnosis Date Aspirin contraindicated 01/20/2012 Philip's esophagus 07/21/2012 RAMU (generalized anxiety disorder) 11/04/2018 GERD (gastroesophageal reflux disease) 12/04/2011 H/O: upper GI bleed 09/19/20172011 Hearing loss 02/22/2015 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 History of bladder cancer 03/24/2018 HTN, goal below 150/90 08/15/2014 Mild aortic regurgitation 01/24/2023 Prediabetes 01/02/2022 UGI bleed 01/20/2012 2012 - biopsies in [place] is benign Past Surgical History: Procedure Laterality Date ARTHROPLASTY KNEE TOTAL 2007 CYSTOSCOPY 01/2012 [facility] CYSTOSCOPY 01/2013 [facility] EGD PREP 03/22/2018 ESOPHAGECTOMY, WITH LAPAROSCOPIC MOBILIZATION 07/2020 with gastric pull up RELIEVE INNER EYE PRESSURE Right 2018 right GONIOTOMY performed by Vinny Whyte MD at OR [facility] RELIEVE INNER EYE PRESSURE Left 01/13/2018 left GONIOTOMY performed by Vinny Whyte MD at OR [facility] REMOVAL OF BLADDER TUMOR 1996 Cystotomy, Excision Bladder Tumor REMOVE CATARACT, INSERT LENS PROSTH Right 2018 right EXTRACAPSULAR CATARACT REMOVAL WITH INTRAOCULAR LENS performed by Vinny Whyte MD at OR [facility] REMOVE CATARACT, INSERT LENS PROSTH Left 01/13/2018 left EXTRACAPSULAR CATARACT REMOVAL WITH INTRAOCULAR LENS performed by Vinny Whyte MD at OR [facility] Family History Problem Relation Age of Onset Hypertension Father OBJECTIVE: PHYSICAL EXAM: BP 130/70 | Pulse 68 | Temp 35.3 C (95.6 F) (Tympanic) | Ht 1.702 m (5' 7") | Wt 82.2 kg (181 lb 3.2 oz) | SpO2 99% | BMI 28.38 kg/m | BSA 1.97 m General: alert, healthy, and no distress Head: Normocephalic, No masses, lesions, tenderness or abnormalities Eye Exam: PERRLA, extraocular movements intact, conjunctiva are pink and non- injected, sclera clear Ears: External ears normal, TM's Normal, some cerumen bilaterally Heart: regular rate & rhythm, no murmur, no gallops, PMI non-displaced, S-1 normal, and S-2 normal Lungs: normal respiratory rate and rhythm, lungs clear to auscultation Abdomen: soft, n/t n/d 08/18/23 CT: 1. Moderate left hydroureteronephrosis down to the ureterovesical junction. Urological follow-up for assessment 2. Bladder wall thickening with trabeculation and bladder diverticula formation. Bladder calcification 3. Dilated common bile duct with bile duct stone I reviewed last lipid, gfr, cbc, a1c 09/2023 U/S: 1. No evidence of deep venous thrombus within the bilateral lower extremities. 2. Heterogeneous appearance of the posterior right thigh musculature at site of pain. This may be artifactual however an intramuscular hematoma in the setting of muscle tear could appear similar. A follow-up ultrasound in 3 months to ensure resolution is recommended to exclude the much less likely possibility of an underlying lesion. ASSESSMENT: I10 HTN, goal below 150/90 (primary encounter diagnosis) R73.03 Prediabetes C15.5 Malignant neoplasm of lower third of esophagus (HCC) F41.1 RAMU (generalized anxiety disorder) N13.30 Hydronephrosis, unspecified hydronephrosis type Z85.51 History of bladder cancer R22.41 Skin lump of leg, right R32 Urinary incontinence, unspecified type K80.50 Calculus of bile duct without cholecystitis and without obstruction PLAN: HTN, goal below 150/90 (Primary) Cont lisinopril, metoprolol, amlodipine Labs today Prediabetes - HEMOGLOBIN A1C; Future; Expected date: 01/21/2024 Malignant neoplasm of lower third of esophagus (HCC) No symptoms sp chemo and radiation in the past Still needs to see GI to see if further work up needed for this and stone seen on last ct He feels at baseline RAMU (generalized anxiety disorder) Controlled Hydronephrosis, unspecified hydronephrosis type - ADULT/PEDS UROLOGY REFERRAL OP - US RENAL; Future; Expected date: 01/21/2024 Recheck u/s Get to urology History of bladder cancer Await urology Skin lump of leg, right - US EXTREMITY, NON-VASCULAR LIMITED; Future; Expected date: 01/21/2024 Recheck per er notes Urinary incontinence, unspecified type - URINALYSIS WITH MICROSCOPIC EXAM; Future; Expected date: 01/21/2024 Calculus of bile duct without cholecystitis and without obstruction Await GI Follow Up: Return in about 6 months (around 07/22/2024), or if symptoms worsen or fail to improve, for Labs Today. | For: Labs Today | Check-out note: Pls re- schedule missed GI visit alejandro Pls schedule urology documented in this encounter Nursing Notes * Nat Ruiz MED ASSIST - 01/21/2024 3:38 PM EDT Chief Complaint Patient presents with Follow Up 6 month return documented in this encounter Plan of Treatment Upcoming Encounters Date Type Department Care Team (Late st Contact Info) Description 01/21/2024 4:30 PM EDT Laboratory Laboratory [facility] [place] [address] [facility] [place] [phone] [facility] [address] [facility] [place] [address] Malignant neoplasm of lower third of esophagus (HCC); Dysphagia, unspecified type; Encounter for long-term (current) use of medications; Hydroureteronephrosis ; Prediabetes 05/17/2024 2:30 PM EDT Office Visit Gastroenterology, [facility] [address] [place] [address] Tim Ruiz CRNP [address] [place] [address] 08/16/2024 3:20 PM EST Office Visit General Internal Medicine [facility] [place] [address] [facility] [place] [address] Mumtaz Loza MD [address] [facility] [place] [address] Pending Results Name Type Priority Associated Diagnoses Date /Time HEMOGLOBIN A1C Lab Routine Prediabetes 01/21/2024 4:17 PM EDT Scheduled Orders Name Type Priority Associated Diagnoses Orde r Schedule HEMOGLOBIN A1C Lab Routine Prediabetes Expected: 01/21/2024 (Approximate), Expires: 01/20/2025 US RENAL Medical Imaging Routine Hydronephrosis, unspecified hydronephrosis type Expected: 01/21/2024, Expires: 02/19/2025 US EXTREMITY, NON-VASCULAR LIMITED Medical Imaging Routine Skin lump of leg, right Expected: 01/21/2024, Expires: 02/19/2025 URINALYSIS WITH MICROSCOPIC EXAM Lab Routine Urinary incontinence, unspecified type Expected: 01/21/2024 (Approximate), Expires: 01/20/2025 Scheduled Referrals Name Type Priority Associated Diagnoses Orde r Schedule ADULT/PEDS UROLOGY REFERRAL OP Referral Within 3 days (urgent) Hydronephrosis, unspecified hydronephrosis type Ordered: 01/21/2024 Health Maintenance Due Date Last Done Comments [...] this encounter Medical Devices Implanted Type Area Kennel Operator Device Identifier Shelf Expiration Date Model / Serial / Lot Lens 17.0 Mx60 - [id number] - [id number] Implanted:Qty: 1 on 2018 by Vinny Whyte MD at OR [facility] Right: Eye [employer] : SURGICAL 08/28/2020 MX60-17.0 / [id number] / [id number] Lens 16.0 Mx60 - [id number] - [id number] Implanted:Qty: 1 on 01/13/2018 by Vinny Whyte MD at OR [facility] Left: Eye [employer] : SURGICAL 06/28/2022 MX60-16.0 / [id number] / [id number] documented as of this encounter Visit Diagnoses Diagnosis HTN, goal below 150/90- Primary Prediabetes Other abnormal glucose Malignant neoplasm of lower third of esophagus (HCC) Malignant neoplasm of lower third of esophagus RAMU (generalized anxiety disorder) Generalized anxiety disorder Hydronephrosis, unspecified hydronephrosis type History of bladder cancer Personal history of malignant neoplasm of bladder Skin lump of leg, right Urinary incontinence, unspecified type Calculus of bile duct without cholecystitis and without obstruction Malignant neoplasm of lower third of esophagus [...] and were consensually agreed upon. Care Teams Data Sciences Director Relationship Specialty Start Date End Date Mumtaz Loza MD [address] [place] [address] PCP - General Internal Medicine 12/04/11 documented as of this encounter
--- OUTSIDE RECORDS SUMMARY | 2024-04-10 07:39 | External Medical Summary ---
Author Name Unknown Address Unknown Organization K01:[facility] - [facility] [address] [facility] [address] Laboratory Report Ordering Provider Test Date Status GERA HERNÁNDEZ 01/21/2024 16:17:48 Final Observation Date Value Abnormality Reference (Units ) Status WBC, Total 01/21/2024 16:17:48 7.29 4.00-10.80 (K/uL) Final RBC 01/21/2024 16:17:48 4.66 4.50-5.25 (M/uL) Final Hemoglobin 01/21/2024 16:17:48 14.6 14.0-16.8 (g/dL) Final HCT 01/21/2024 16:17:48 44.4 40.0-48.4 (%) Final MCV 01/21/2024 16:17:48 95.3 82.0-99.5 (fL) Final MCH 01/21/2024 16:17:48 31.3 27.0-34.0 (pg) Final MCHC 01/21/2024 16:17:48 32.9 32.0-36.0 (g/dL) Final RDW 01/21/2024 16:17:48 12.9 11.5-15.5 (%) Final Platelets 01/21/2024 16:17:48 213 140-400 (K/uL) Final MPV 01/21/2024 16:17:48 10.0 6.6-11.1 (fL) Final Nucleated erythrocytes/100 leukocytes [Ratio] in Blood by Automated count 01/21/2024 16:17:48 0 <=0 (/100 WBCs) Final Performing Location [facility] - [address] [place] [address]
--- OUTSIDE RECORDS SUMMARY | 2024-04-10 07:40 | External Medical Summary | Summary of Care ---
Author Name Unknown Organization [facility] Address [address] [place] [address] Phone [phone] Care Team Providers Care Rigger Helper Name Role Phone Mumtaz Boss MD Primary Care Provider + Reason for Visit * Reason Comments eRx-Medication Refill Encounter Details Date Type Department Care Team (Late st Contact Info) Description 12/08/2023 Refill General Internal Medicine [facility] [address] [place] [address] Mumtaz Boss MD [address] [place] [address] HTN, goal below 150/90 Allergies No known active allergiesdocumented as of this encounter (statuses as of 12/09/2023) Medications Medication Sig Dispensed Refills Start Date [...] 10 days. 15 mL 0 08/01/2022 Active Lisinopril 10 MG Oral Tablet (Prinivil)Indicat ions:HTN, goal below 150/90 TAKE 1 TABLET DAILY 90 Tablet 3 01/03/2023 Active amLODIPine Besylate 10 MG Oral Tablet [...] BEFORE BEDTIME 180 Tablet 3 12/09/2023 Active Metoprolol Succinate ER 50 MG Oral Tablet Extended Release 24 Hour (toPROL XL)Indications:HT N, goal below 150/90 Take 1 Tablet by mouth in the morning and 1 Tablet before bedtime. 180 Tablet 3 12/30/2022 12/09/2023 Discontinued documented as of this encounter (statuses as of 12/09/2023) Active Problems Problem Noted Date Diagnosed Date Mild aortic regurgitation 01/24/2023 Prediabetes 01/02/2022 Encephalopathy 05/27/2019 RAMU (generalized anxiety disorder) 11/04/2018 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 04/14/2018 Overview: Treated with chemo and xrt 05/2019 in [place], follows at 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, follows with doctors in [place] - EGD 6 months 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 03/24/20 18 UGI bleed 01/20/2012 09/19/2017 Overview: 2012 - biopsies in [place] is benign HTN, goal below 140/90 12/04/201108/15 GERD (gastroesophageal reflux disease) 12/04/2011 03/24/2018 Bladder cancer 12/04/2011 03/24/2018 Overview: Dx 1989', sees urology in [place] 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 01/20/20 12 documented as of this encounter (statuses as of 12/09/2023) Immunizations Name Administration Dates Next Due COVID-19 mRNA, LNP-s, No Pre serve, 2-Dose Series ([employer]) 07/02/2021,12/16/2020,11/25/2020 Covid-19, Mrna, Lnp-s, Pf, B ivalent, 30 Mcg, IM, 12 yrs and above ([employer]) 06/16/2023 Pneumococcal Conjugate Vacc, 13 Valent (Prevnar) [...] encounter Miscellaneous Notes * Telephone Encounter - Keeley Olvera [facility] - 12/09/2023 7:45 AM EDTSigned Prescriptions: Disp Refills Metoprolol Succinate ER 50 MG Oral Tablet *180 Ta*3 Sig: TAKE 1TABLET IN THE MORNING AND 1 TABLET BEFORE BEDTIMEAuthorizing Provider: MUMTAZ BOSS User: KEELEY OLVERA documented in this encounter Plan of Treatment Upcoming Encounters Date Type Department Care Team (Late st Contact Info) Description 01/21/2024 3:40 PM EDT Office Visit General Internal Medicine [address] [place] [address] [place] [address] Mumtaz Boss MD [address] [place], [place] [address] Health Maintenance Due Date Last Done Comments Philip's Esophagus Surveilance 1935 COVID-19 Vaccine ( season) 2023 06/16/2023, 06/16/2023, 09/10/2022, Additional history exists Depression Screening 12/31/2023 12/30/2022, 03/01/2016 (Not indicated) HbA1c 01/01/2024 12/31/2022, 1011/2021, 01/01/2022 Albumin/Creatinine Ratio 07/01/2025 07/01/2022, 01/28 DTaP,Tdap,and [...] this encounter Medical Devices Implanted Type Area Equipment Application Specialist Device Identifier Shelf Expiration Date Model / Serial / Lot Lens 17.0 Mx60 - [id number] - [id number] Implanted:Qty: 1 on 2018 by Vinny Whyte MD at OR [facility] Right: Eye [employer] : SURGICAL 08/28/2020 MX60-17.0 / [id number] / [id number] Lens 16.0 Mx60 - [id number] - [id number] Implanted:Qty: 1 on 01/13/2018 by Vinny Whyte MD at OR [facility] Left: Eye [employer] : SURGICAL 06/28/2022 MX60-16.0 / [id number] / [id number] documented as of this encounter Visit Diagnoses [...] and were consensually agreed upon. Care Teams Rigger Helper Relationship Specialty Start Date End Date Mumtaz Boss MD [address] [place] [address] PCP - General Internal Medicine 12/04/11 documented as of this encounter
--- OUTSIDE RECORDS SUMMARY | 2024-04-10 07:40 | External Medical Summary | Summary of Care ---
Author Name Unknown Organization [facility] Address [address] [place] [address] Phone [phone] Care Team Providers Care Instructor Adjunct Pharmacy Technician Name Role Phone Mumtaz Loza MD Primary Care Provider + Reason for Visit * Reason Onset Date Comments Appointment 09/10/2023 Encounter Details Date Type Department Care Team (Late st Contact Info) Description 09/10/[address] Medicine [facility] [address] [place] [address] Mumtaz Loza MD [address] [place] [address] Appointment Allergies No known active allergiesdocumented as of this encounter (statuses as of 12/05/2023) Medications Medication Sig Dispensed Refills Start Date [...] 05/09/2021 Active Clotrimazole 1 % External Solution (Mycelex)Indications :Otomycosis Place 4 drops in both ears twice a day for 10 days. 15 mL 0 08/01/2022 Active Metoprolol Succinate ER 50 MG Oral Tablet Extended Release 24 Hour (toPROL XL)Indications:HTN, goal below 150/90 Take 1 Tablet by mouth in the morning and 1 Tablet before bedtime. 180 Tablet 3 12/30/2022 Active Lisinopril 10 MG Oral Tablet (Prinivil)Indication s:HTN, goal below 150/90 TAKE 1 TABLET DAILY 90 Tablet 3 01/03/2023 Active amLODIPine Besylate 10 MG Oral Tablet (Norvasc)Indications :HTN, goal below 150/90 TAKE 1 TABLET by mouth DAILY 90 Tablet 3 04/15/2023 Active Acetaminophen ER 650 MG Oral Tablet Extended Release (Tylenol ER) Take 1 Tablet by mouth. 0 Active Pantoprazole Sodium 40 MG Oral Tablet Delayed Release (Protonix)Indication s:Malignant neoplasm of lower third of esophagus (HCC) Take by mouth 1 Tablet in the morning. 30 Tablet 5 09/10/2023 Active documented as of this encounter (statuses as of 12/05/2023) Active Problems Problem Noted Date Diagnosed Date Mild aortic regurgitation 01/24/2023 Prediabetes 01/02/2022 Encephalopathy 05/27/2019 RAMU (generalized anxiety disorder) 11/04/2018 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 04/14/2018 Overview: Treated with chemo and xrt 05/2019 in [place], follows at [facility] History of bladder cancer 03/24/2018 Gastroesophageal reflux disease with esophagitis 03/24/2018 H/O: upper GI bleed 09/19/2017 Overview: 2011 Hearing loss 02/22/2015 HTN, goal below 150/90 08/15/2014 Aspirin contraindicated 01/20/2012 documented as of this encounter (statuses as of 12/05/2023) Resolved Problems Problem Noted Date Diagnosed Date Resolved Date Chronic kidney disease, stage 3a 12/04/2020 07/01/2022 Overview: Per CKD protocol History of esophageal cancer 05/19/2019 06/15/2019 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 - treated with RFA, follows with doctors in [place] - EGD 6 months 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 03/24/20 18 UGI bleed 01/20/2012 09/19/2017 Overview: 2012 - biopsies in [place] is benign HTN, goal below 140/90 12/04/201108/15 GERD (gastroesophageal reflux disease) 12/04/2011 03/24/2018 Bladder cancer 12/04/2011 03/24/2018 Overview: Dx 1989', sees urology in [place] 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 01/20/20 12 documented as of this encounter (statuses as of 12/05/2023) Immunizations Name Administration Dates Next Due COVID-19 mRNA, LNP-s, No Pre serve, 2-Dose Series ([employer] 07/02/2021,12/16/2020,11/25/2020 Covid-19, Mrna, Lnp-s, Pf, B ivalent, 30 Mcg, IM, 12 yrs and above ([employer] 06/16/2023 Pneumococcal Conjugate Vacc, 13 Valent (Prevnar) [...] encounter Miscellaneous Notes * Telephone Encounter - Gillian Pulido OSA - 09/10/2023 11:09 AM EST Glenn came in with a letter he received saying he needs to be seen in 3 days due to some abnormal results he received from a CT. I could not find anything until March. Please call him to get scheduled as soon as possible. Thank you. documented in this encounter Plan of Treatment Upcoming Encounters Date Type Department Care Team (Late st Contact Info) Description 01/21/2024 3:40 PM EDT Office Visit General Internal Medicine [facility] [address] [facility] [place] [address] Mumtaz Loza MD [address] [place] [address] Health Maintenance Due Date Last Done Comments Philip's Esophagus Surveilance 1935 COVID-19 Vaccine ( season) 2023 06/16/2023, 06/16/2023, 09/10/2022, Additional history exists Depression Screening 12/31/2023 12/30/2022, 03/01/2016 (Not indicated) HbA1c 01/01/2024 12/31/2022, 10/0 11/2021, 01/01/2022 Albumin/Creatinine Ratio 07/01/2025 07/01/2022, 01/28 [...] this encounter Medical Devices Implanted Type Area Stone Polisher Device Identifier Shelf Expiration Date Model / Serial / Lot Lens 17.0 Mx60 - [id number] - [id number] Implanted:Qty: 1 on 2018 by Vinny Whyte MD at OR [facility] Right: Eye [employer] : SURGICAL 08/28/2020 MX60-17.0 / [id number] / [id number] Lens 16.0 Mx60 - [id number] - [id number] Implanted:Qty: 1 on 01/13/2018 by Vinny Whyte MD at OR [facility] Left: Eye [employer] : SURGICAL 06/28/2022 MX60-16.0 / [id number] / [id number] documented as of this encounter Advance Directives [...] and were consensually agreed upon. Care Teams Instructor Adjunct Pharmacy Technician Relationship Specialty Start Date End Date Mumtaz Loza MD [address] [place] [address], [place] [address] PCP - General Internal Medicine 12/04/11 documented as of this encounter
[2024-04-10 08:00] LABS: Calcium 9.3 mg/dl (8.6-10.3); Creatinine Clr Calc Pharmacy 32.7 ml/min; Est GFR (African American) 55.8 ml/min; Est GFR (Non-African American) 48.2 ml/min; Magnesium 1.7 mg/dl (1.7-2.4); Phosphorus 2.6 mg/dl (2.5-4.9); Potassium 3.5 mmol/L (3.5-5.1)
[2024-04-10] MEDS: METOPROLOL SUCC 50MG EXT REL TAB PO SCH (08:01)
[2024-04-10] MEDS: CARBAMIDE PEROXIDE 6.5% 15 ML BTL OT SCH (08:02)
[2024-04-10] MEDS ORDERED: lisinopril 10 MG TAB PO SCH (09:00)
[2024-04-10 11:14] LABS: Hematocrit (blood only) 38.1 % (42.0-52.0); Hemoglobin 12.3 g/dl (14.0-18.0)
--- NOTE | 2024-04-10 11:49 | Electrocardiogram Report ---
Test Reason : Blood Pressure : / mmHG Vent. Rate : 075 BPM Atrial Rate : 075 BPM P-R Int : 214 ms QRS Dur : 100 ms QT Int : 398 ms P-R-T Axes : 018 -10 070 degrees QTc Int : 444 ms Sinus rhythm with 1st degree A-V block with Premature atrial complexes Otherwise normal ECG When compared with ECG of 30-SEP-2023 16:05, No significant change was found Confirmed by Kb Copeland ([id number]) on 04/10/2024 11:48:45 AM Referred By: Marija Cornelius Confirmed By:Kb Copeland
--- NOTE | 2024-04-10 11:51 | Gastrointestinal Consultation ---
Date of Consultation April 10, 2024 Assessment & Plan (1) Bloody vomitus: Given his history of esophageal cancer one is always concerned about a recurrence although if he really has been cured would be more suspicious of chronic radiation damage or other etiologies not related. The patient's niece tells me her daughter (who apparently is a nurse) indicated he had esophageal varices but no one knows if he had been treated. He is not on non-selective beta alison and his synthetic liver function that was checked is normal. He also does not have thrombocytopenia and there is no evidence that she knows of of any clotting ie splenic/gastric thrombosis, so I am suspicious of this diagnosis. Overall he should have an EGD at some point. Can be done as IP if he is to be here on Friday or as OP given he is hemodynamically stable. The EGD procedure, alternatives including no work up or treatment, risks and benefits were discussed with the niece. Among the risks discussed included cardiorespiratory suppression, aspiration, bleeding, failure to diagnose cancer or other pathology and perforation requiring surgery. In addition we discussed that if specimens are obtained it may be deemed beneficial to send these for genetic/DNA testing. The patient's niece claimed to understand all that was discussed, consented to all and all of her questions were answered. History of Present Illness Reason for Consultation: Hematemesis Requesting Physician: Ila Vallejo Attending Physician: Grupo Sharma MD History of Present Illness 89 yo WM who is very MESA GRANDE and sometimes confused according to his niece. So much of information taken from medical record and niece, Alyssa Ness [phone]. She states she brought him into the hospital because he was either coughing up or vomiting up a small amount of blood. He has a history of esophageal cancer that was apparently treated and cured according to her. Allergies Allergy/AdvReac Type Severity Reaction Status Date / Time No Known Allergies Allergy Verified 04/09/24 19:44 Home Medications Medication Instructions Recorded Confirmed Type amlodipine 10 mg tablet (Norvasc) 10 mg PO DAILY 05/04/19 04/09/24 History pantoprazole 40 mg tablet,delayed 40 mg PO DAILY 05/04/19 04/09/24 History release (Protonix) lisinopril 10 mg tablet 10 mg PO DAILY 09/30/23 04/09/24 History metoprolol succinate 50 mg 50 mg PO BID 09/30/23 04/09/24 History tablet,extended release 24 hr calcium carbonate (Tums) 300 mg PO QID 04/09/24 04/09/24 History glucosamine sulfate 750 mg tablet 750 mg PO BID 04/09/24 04/09/24 History Patient History Medical History Anxiety Barretts esophagus Carcinoma of distal third of esophagus (03/18/18) "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 post upper GI endoscopy and biopsy March 18, 2018 Adenocarcinoma Status post PET/CT March 14, 2018 FDG avidity in the distal esophagus Plan for EUS May 08, 2018" HTN (hypertension) Surgical History History of arthroplasty of knee History of cystoscopy History of cataract surgery Family History Other Hypertension Stroke Social History Smoking Status: Never smoker Hx Alcohol Use: No Hx Substance Use: No Preferred Language: Djiboutian Communication Ability: Impaired Communication Ability Comment: extremely [place], communication difficult Sulfonation Equipment Operator Required: No Beliefs That Will Affect Care: Druze Druze Beliefs: Hindu Current Living Situation: Alone Feels Safe at Home: Yes Assistive Devices: Denture - Upper, Glasses and Hearing Aid - Bilateral Review of Systems Review of Systems: Difficult to obtain given difficulty in communicating with him due to his being hard or hearing and prone to conjecture according to his niece. IE the patient told me his cancer had spread to his lungs and brain and she stated this was not true. Physical Exam Constitutional: Elderly alert and responsive WM in NAD Afebrile VSS Eyes: Sclera anicteric Conjunctiva not pale Respiratory: Lungs: Clear with fair to good inspiratory effort Cardiovascular: Heart: Distant sounds but appear regular Gastrointestinal (Abdomen): Decreased BS Soft, nontender Musculoskeletal: Extremities: Neg CCE Neurologic: Awake, alert and communicative but extremely [place] Results & Data Vital Signs (Past 12 Hours) Vital Signs Temp Pulse Resp BP Pulse Ox O2 Del Method 07/13/24 10:33 36.5 C 68 23 113/72 97 Room Air 04/10/24 07:48 36.4 C L 82 24 152/78 H 97 Room Air 04/10/24 04:10 36.5 C 65 17 138/70 98 Room Air PG Care Time/CCT Total # of Minutes Spent Total Time Spent with Patient: Total time spent is greater than 50% in coordination of care (as documented) at patient's floor/unit and/or counseling patient: Coding Level of Care Code 25578 IN/OBS CONSULT LVL 4,60M Diagnoses Bloody vomitus K92.0 Nausea presence: unspecified (1) Bloody vomitus Nausea presence: unspecified Qualified Code(s): K92.0 - Hematemesis
--- NOTE | 2024-04-10 13:21 | Hospitalist Progress Note ---
Date of Service April 10, 2024 Assessment & Plan (1) Hemoptysis: (2) History of esophageal cancer: (3) Hypercalcemia: (4) JEAN CARLOS (acute kidney injury): Plan 89y/o M with PMHx of prediabetes, HTN, mild aortic regurgitation, malignant neoplasm of lower third of esophagus in the setting of Philip's esophagus s/p chemotherapy + radiation, GERD w/ esophagitis, hearing loss, encephalopathy, RAMU, upper GI bleed [2012], bladder cancer presented to the ED secondary to hypercalcemia and hemoptysis. Pt's niece states that pt has been coughing and "spitting up" blood for past several months but unsure of the exact timeframe. He is being managed for the following: Episodes of Hematemesis vs hemoptysis [? 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 Pt has been intermittently coughing and "spitting up" blood over the past several months per his niece - ? hematemesis. 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 Admitting CXR with large hiatal hernia, CT head with no acute finding. CT chest findings consistent with history of esophageal carcinoma. Admitting hemoglobin 14, currently stable around 12. No further vomiting/spitting up of blood per RN. GI on board, plan for EGD scope on Friday. Patient and his niece agreeable. Start clear liquid diet with the plan of n.p.o. midnight for Friday EGD, continue with Protonix drip. Monitor H&H, transfuse as needed. Hypercalcemia: Patient noted to have elevated calcium level of 11.7 on 01/21/2024. Admitting calcium of 10.8. Likely secondary to dehydration and Tums use. Per patient's niece, patient does not drink enough. Status post IV fluid. Calcium level resolved. Avoid Tums. Acute kidney injury: Creatinine at presentation 1.64, likely secondary to dehydration. Status post IV fluid. Resolved. Hypertension: Continue home blood pressure medication as able. BP fairly better. Bilateral Cerumen Impaction, Hard of Hearing: Pt saw his PCP today who noted significant cerumen impaction in both ears. c/4 scheduled Debrox drops BID for both ears x 4 days total. DVT Prophylaxis: SCDs/TEDs Code Status: FULL CODE PCP: Mumtaz Loza MD Disposition: PCU/Telemetry Admission and Anticipated Discharge Date Admission Date: April 09, 2024 Subjective Patient was seen and examined at bedside. Patient was lying in bed, on room air, NAD, resting comfortably. Patient's niece was at bedside as well, who was updated on plan of care. She voiced understanding and is expecting EGD scope on Friday. ROS not able in very detail with the patient, patient declines pain, per RN no further vomiting of blood, no new acute event overnight. Physical Exam Physical Exam: General: WD/WN, vitals as above, NAD, sitting up in bed, pleasant. Very hard of hearing - but responsive to loud verbal commands. A+O x 3. HEENT: Normocephalic, atraumatic. Normal inspection, PERRL, conjunctivae normal, anicteric sclerae. External ear and nose normal, oropharynx normal. Respiratory: Normal respiratory effort, lungs clear to auscultation, no wheeze, rales, rhonchi. No accessory muscle use. Cardiovascular: Regular rate, rhythm, no murmur, normal peripheral pulses, no BLE edema. Vessels: No JVD. Abdomen/GI: Normal bowel sounds, soft, nontender, no hepatosplenomegaly. Extremities/Musculoskeletal: No cyanosis or clubbing, extremities motor strength not formally tested but appears intact. Neurologic: EOMI, accommodation nl, no face palsy, no dysarthria and moves all e xtremities when instructed to. Skin: No rashes, normal color, warm/dry. Results & Data Results & Data Vital Signs (Past 12 Hours) Vital Signs Temp Pulse Resp BP Pulse Ox O2 Del Method 04/10/24 10:33 36.5 C 68 23 113/72 97 Room Air 04/10/24 07:48 36.4 C L 82 24 152/78 H 97 Room Air 04/10/24 04:10 36.5 C 65 17 138/70 98 Room Air
[2024-04-10] MEDS: MAGNESIUM SULFATE / D5W 1 GM/100 ML BAG IV ONE (14:01)
[2024-04-10] MEDS: POTASSIUM CHLORIDE / WTR 10 MEQ/100 ML PLCT IV SCH (14:01)
[2024-04-10] MEDS: HALOPERIDOL LACTATE 5 MG/ML 1 ML VIAL IM STA (23:59)
[2024-04-11] MEDS: HALOPERIDOL LACTATE 5 MG/ML 1 ML VIAL IM PRN (02:15)
[2024-04-11] MEDS: HALOPERIDOL LACTATE 5 MG/ML 1 ML VIAL IM STA (02:52)
[2024-04-11 04:09] LABS: Appearance Urine Clear (Clear); Bilirubin Urine Negative (Negative); Blood Urine Negative (Negative); Color Urine Yellow; Glucose Urine UA Negative (Negative); Ketones Urine Trace (Negative); Leukocyte Esterase Urine Negative (Negative); Nitrite Urine Negative (Negative); Protein Urine Negative (Negative); Specific Gravity Urine 1.012 (1.000-1.030); Urobilinogen Urine Negative (Negative); pH Urine 6.5 (4.5-7.5)
[2024-04-11] MEDS: OLANZapine 10 MG/2.1 ML SDV IM STA (04:37)
[2024-04-11 07:24] LABS: Hematocrit (blood only) 40.8 % (42.0-52.0); Hemoglobin 13.7 g/dl (14.0-18.0); Mean Corpuscular Hemoglobin 30.6 pg (25.0-34.0); Mean Corpuscular Hgb Conc 33.6 g/dL (32.0-36.0); Mean Corpuscular Volume 91.3 fL (80.0-100.0); Mean Platelet Volume 9.2 fL (9.4-12.4); Platelet Count 179 K/uL (130-400); RDW Coefficient of Variation 12.9 % (11.5-14.5); RDW Standard Deviation 43.5 fL (36.4-46.3); Red Blood Count 4.47 M/uL (4.70-6.10); White Blood Count 14.41 K/ul (4.8-10.8)
[2024-04-11 07:42] LABS: Calcium 9.6 mg/dl (8.6-10.3); Est GFR (African American) 54.3 ml/min; Est GFR (Non-African American) 46.9 ml/min; Magnesium 1.9 mg/dl (1.7-2.4); Phosphorus 2.2 mg/dl (2.5-4.9)
[2024-04-11] MEDS ORDERED: POTASSIUM PHOS 3 MMOL/1 ML INFUSION IV STA (08:06)
[2024-04-11] MEDS: amLODIPine BESYLATE 5 MG TAB PO SCH (08:28)
[2024-04-11] MEDS: lisinopril 10 MG TAB PO SCH (08:28)
--- NOTE | 2024-04-11 09:56 | Gastroenterology Progress Note ---
Date of Service April 11, 2024 Assessment & Plan (1) Bloody vomitus: Plan: Hemodynamically stable and Hgb is also stable. For EGD tomorrow NPO after MN Admission and Anticipated Discharge Date Admission Date: April 09, 2024 Subjective Patient more confused today. According to staff was striking out yesterday. Now in restraints. Physical Exam Constitutional: Afebrile VSS Respiratory: Lungs: Clear anteriorly Cardiovascular: Heart: RRR Gastrointestinal (Abdomen): Abd: Decreased BS, but soft and nontender. Results & Data Results & Data Vital Signs (Past 12 Hours) Vital Signs Temp Pulse Pulse Resp BP BP Pulse Ox 04/11/24 07:02 105 H 17 140/106 H 95 04/11/24 03:57 36.4 C L 83 22 145/78 H 97 04/11/24 00:21 36.6 C 91 H 19 163/85 H 96 04/10/24 22:00 79 O2 Del Method 04/11/24 07:02 Room Air 04/11/24 03:57 Room Air 04/11/24 00:21 Room Air 04/10/24 22:00 PG Care Time/CCT Total # of Minutes Spent Total Time Spent with Patient: Total time spent is greater than 50% in coordination of care (as documented) at patient's floor/unit and/or counseling patient: Coding Level of Care Code 39926 SUB INP/OBS CARE 1/25MIN Diagnoses Bloody vomitus K92.0 Nausea presence: unspecified (1) Bloody vomitus Nausea presence: unspecified Qualified Code(s): K92.0 - Hematemesis
[2024-04-11] MEDS ORDERED: SIMETHICONE (ENDO) IR PRN (09:57)
[2024-04-11] MEDS: POTASSIUM PHOSPHATE 9 MMOL in SODIUM CHLORIDE 0.9% 250 ML IV ONE (10:50)
[2024-04-11] MEDS: D5W AND NSS 1,000 ML IV SCH (13:33)
--- NOTE | 2024-04-11 15:31 | Hospitalist Progress Note ---
Date of Service April 11, 2024 Assessment & Plan (1) Hemoptysis: (2) History of esophageal cancer: (3) Hypercalcemia: (4) JEAN CARLOS (acute kidney injury): Plan 89y/o M with PMHx of prediabetes, HTN, mild aortic regurgitation, malignant neoplasm of lower third of esophagus in the setting of Philip's esophagus s/p chemotherapy + radiation, GERD w/ esophagitis, hearing loss, encephalopathy, RAMU, upper GI bleed [2012], bladder cancer presented to the ED secondary to hypercalcemia and hemoptysis. Pt's niece states that pt has been coughing and "spitting up" blood for past several months but unsure of the exact timeframe. He is being managed for the following: Episodes of Hematemesis vs hemoptysis [? 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 Pt has been intermittently coughing and "spitting up" blood over the past several months per his niece - ? hematemesis. 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 Admitting CXR with large hiatal hernia, CT head with no acute finding. CT chest findings consistent with history of esophageal carcinoma. Admitting hemoglobin 14, currently stable around 12 - 13. No further vomiting/spitting up of blood per RN. GI on board, plan for EGD scope on anthony. NPO midnight. Pt w/ poor appetite per RN, will start IVF. Continue with Protonix drip. Monitor H&H, transfuse as needed. Hypercalcemia: Patient noted to have elevated calcium level of 11.7 on 01/21/2024. Admitting calcium of 10.8. Likely secondary to dehydration and Tums use. Per patient's niece, patient does not drink enough. Status post IV fluid. Calcium level resolved. Avoid Tums. Acute kidney injury: Creatinine at presentation 1.64, likely secondary to dehydration. Status post IV fluid. Resolved. Hypertension: Continue home blood pressure medication as able. BP fairly better. Bilateral Cerumen Impaction, Hard of Hearing: Pt saw his PCP today who noted significant cerumen impaction in both ears. c/4 scheduled Debrox drops BID for both ears x 4 days total. DVT Prophylaxis: SCDs/TEDs Code Status: FULL CODE PCP: Mumtaz Loza MD Disposition: PCU/Telemetry Admission and Anticipated Discharge Date Admission Date: April 09, 2024 Subjective Patient was seen and examined at bedside. Patient was lying in bed, on room air, NAD, resting comfortably. Was confused. Patient's niece was at bedside as well, who was updated on plan of care. She voiced understanding and is expecting EGD scope on Friday. ROS not able in very detail with the patient, patient declines pain, per RN no further vomiting of blood, Patient was confused overnight requiring multiple Haldol doses. Patient has poor appetite, will start him on gentle IV fluid. Patient had urinary retention with Randall inserted with 1100 mL urine output today AM. Physical Exam Physical Exam: General: WD/WN,NAD, sitting up in bed, pleasant. Very hard of hearing - but responsive to loud verbal commands. confused. HEENT: Normocephalic, atraumatic. Normal inspection, PERRL, conjunctivae normal, anicteric sclerae. External ear and nose normal, oropharynx normal. Respiratory: Normal respiratory effort, lungs clear to auscultation, no wheeze, rales, rhonchi. No accessory muscle use. Cardiovascular: Regular rate, rhythm, no murmur, normal peripheral pulses, no BLE edema. Vessels: No JVD. Abdomen/GI: Normal bowel sounds, soft, nontender, no hepatosplenomegaly. Extremities/Musculoskeletal: No cyanosis or clubbing, extremities motor strength not formally tested but appears intact. Neurologic: EOMI, accommodation nl, no face palsy, no dysarthria and moves all extremities when instructed to. Skin: No rashes, normal color, warm/dry. Results & Data Results & Data Vital Signs (Past 12 Hours) Vital Signs Temp Pulse Pulse Resp BP BP Pulse Ox 04/11/24 15:10 36.4 C L 82 20 139/79 95 04/11/24 11:00 36.3 C L 89 18 132/67 96 04/11/24 08:00 04/11/24 07:02 105 H 17 140/106 H 95 04/11/24 03:57 36.4 C L 83 22 145/78 H 97 O2 Del Method 04/11/24 15:10 Room Air 04/11/24 11:00 Room Air 04/11/24 08:00 Room Air 04/11/24 07:02 Room Air 04/11/24 03:57 Room Air
[2024-04-11 18:12] LABS: Appearance Urine Cloudy (Clear); Bacteria Urine Automated None Seen (None Seen); Bilirubin Urine Negative (Negative); Blood Urine 3+ (Negative); Color Urine Red; Epithelial Cell Urine Auto 0-2 /hpf (0-2); Glucose Urine UA Negative (Negative); Ketones Urine Negative (Negative); Leukocyte Esterase Urine 2+ (Negative); Nitrite Urine Negative (Negative); Protein Urine 3+ (Negative); RBC Urine Automated >20 /hpf (0-2); Specific Gravity Urine 1.011 (1.000-1.030); Urobilinogen Urine Negative (Negative)
[2024-04-12] MEDS: HALOPERIDOL LACTATE 5 MG/ML 1 ML VIAL IM STA (03:04)
--- NOTE | 2024-04-12 09:48 | History & Physical Bridge Note ---
Date of Service April 12, 2024 History & Physical Bridge Note I have examined the patient, reviewed the History & Physical and in the interval since the performance of the History & Physical I have noted the following changes of clinical significance: no changes noted. 04/11/24 hgb 13.7. Patient offers no complaints. I spoke with his nurse as well as his bedside aid. No further emesis noted. no bowel movements. no GI issues currently. - continue with protonix drip. - will proceed with EGD today to further evaluate.
[2024-04-12 10:11] LABS: Hematocrit (blood only) 37.8 % (42.0-52.0); Hemoglobin 12.4 g/dl (14.0-18.0); Mean Corpuscular Hemoglobin 30.5 pg (25.0-34.0); Mean Corpuscular Hgb Conc 32.8 g/dL (32.0-36.0); Mean Corpuscular Volume 92.9 fL (80.0-100.0); Mean Platelet Volume 9.2 fL (9.4-12.4); Platelet Count 149 K/uL (130-400); RDW Coefficient of Variation 13.1 % (11.5-14.5); RDW Standard Deviation 44.7 fL (36.4-46.3); Red Blood Count 4.07 M/uL (4.70-6.10); White Blood Count 8.28 K/ul (4.8-10.8)
[2024-04-12 10:29] LABS: BUN Creatinine Ratio 18.1 (10-20); Calcium 8.8 mg/dl (8.6-10.3); Creatinine Clr Calc Pharmacy 37.2 ml/min; Est GFR (African American) 65.3 ml/min; Est GFR (Non-African American) 56.3 ml/min; Magnesium 1.5 mg/dl (1.7-2.4); Phosphorus 2.4 mg/dl (2.5-4.9)
--- NOTE | 2024-04-12 14:54 | Hospitalist Progress Note ---
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 Pt's niece states that pt has been coughing and "spitting up" blood for past several months but unsure of the exact timeframe. He is being managed for the following: Episodes of Hematemesis vs hemoptysis [? 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 Pt has been intermittently coughing and "spitting up" blood over the past several months per his niece - ? hematemesis. 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 Admitting CXR with large hiatal hernia, CT head with no acute finding. CT chest findings consistent with history of esophageal carcinoma. Admitting hemoglobin 14, currently stable around 12 - 13. No further vomiting/spitting up of blood per RN. GI on board, plan for EGD scope today. Resume diet after the scope or per GI recs. Pt w/ poor appetite per RN, c/w IVF. Continue with Protonix drip. Monitor H&H, transfuse as needed. Hypercalcemia: Patient noted to have elevated calcium level of 11.7 on 01/21/2024. Admitting calcium of 10.8. Likely secondary to dehydration and Tums use. Per patient's niece, patient does not drink enough. Status post IV fluid. Calcium level resolved. Avoid Tums. Acute kidney injury: Creatinine at presentation 1.64, likely secondary to dehydration. Status post IV fluid. Resolved. Hypertension: Continue home blood pressure medication as able. BP fairly better. Bilateral Cerumen Impaction, Hard of Hearing: Pt saw his PCP today who noted significant cerumen impaction in both ears. c/4 scheduled Debrox drops BID for both ears x 4 days total. DVT Prophylaxis: SCDs/TEDs Code Status: FULL CODE PCP: Mumtaz Loza MD Disposition: PCU/Telemetry. pt/ot, cm to assist w/ dc plan. Admission and Anticipated Discharge Date Admission Date: April 09, 2024 Subjective Patient was seen and examined at bedside. Patient was lying in bed, on room air, NAD, resting comfortably. Sleeping, very [place]. Patient's niece was at bedside as well, who was updated on plan of care. She voiced understanding and is expecting EGD scope today. ROS not able in very detail with the patient, per RN no further vomiting of blood, brief agitation in AM. Pt is npo, for egd scope today. c/w gentle IV fluid. Physical Exam Physical Exam: General: WD/WN,NAD, lying in bed, sleeping. Very hard of hearing HEENT: Normocephalic, atraumatic. Normal inspection, PERRL, conjunctivae normal, anicteric sclerae. External ear and nose normal, oropharynx normal. Respiratory: Normal respiratory effort, lungs clear to auscultation, no wheeze, rales, rhonchi. No accessory muscle use. Cardiovascular: Regular rate, rhythm, no murmur, normal peripheral pulses, no BLE edema. Vessels: No JVD. Abdomen/GI: Normal bowel sounds, soft, nontender, no hepatosplenomegaly. Extremities/Musculoskeletal: No cyanosis or clubbing, extremities motor strength not formally tested but appears intact. Neurologic: EOMI, accommodation nl, no face palsy Skin: No rashes, normal color, warm/dry. Results & Data Results & Data Vital Signs (Past 12 Hours) Vital Signs Temp Pulse Pulse Pulse Resp BP Pulse Ox 04/12/24 14:44 37.4 C 82 20 115/74 100 04/12/24 11:16 36.4 C L 60 18 103/56 L 96 04/12/24 11:06 64 04/12/24 07:28 36.4 C L 68 18 140/76 97 04/12/24 03:43 77 18 141/75 H 98 O2 Del Method 04/12/24 14:44 Room Air 04/12/24 11:16 Room Air 04/12/24 11:06 04/12/24 07:28 Room Air 04/12/24 03:43 Room Air
--- NOTE | 2024-04-12 15:19 | Anesthesiology Consultation ---
Date of Service April 12, 2024 Assessment & Plan Chart Review Chart Review: Acceptable Risk for Surgery Consults Requested none History Surgery Operation Date: 04/12/24 17:25 Proposed Procedures p Esophagogastroduodenoscopy Chastity Haywood MD Height/Weight Height: 5 ft 8 in Weight: 58.6 kg Allergies Allergy/AdvReac Type Severity Reaction Status Date / Time No Known Allergies Allergy Verified 04/12/24 15:02 Medications Home Medications Medication Instructions Recorded Confirmed Last Taken amlodipine 10 mg tablet (Norvasc) 10 mg PO DAILY 05/04/19 04/09/24 09/30/23 pantoprazole 40 mg tablet,delayed 40 mg PO DAILY 05/04/19 04/09/24 Unknown release (Protonix) lisinopril 10 mg tablet 10 mg PO DAILY 09/30/23 04/09/24 09/30/23 metoprolol succinate 50 mg 50 mg PO BID 09/30/23 04/09/24 09/30/23 08:00 tablet,extended release 24 hr calcium carbonate (Tums) 300 mg PO QID 04/09/24 04/09/24 Unknown glucosamine sulfate 750 mg tablet 750 mg PO BID 04/09/24 04/09/24 Unknown Active Medications Generic Name Dose Route Start Last Admin Trade Name Freq PRN Reason Stop Dose Admin Amlodipine Besylate 10 mg 04/11/24 09:00 04/12/24 12:07 Amlodipine Besylate 5 Mg Tab PO 05/11/24 08:59 Not Given DAILY SAEID Carbamide Peroxide 5 - 10 drops 04/10/24 09:00 04/12/24 08:02 Carbamide Peroxide 6.5% 15 Ml Btl OT 04/14/24 08:59 5 drops BID SAEID Administration Pantoprazole Sodium 40 mg/ 100 mls @ 20 mls/hr 04/09/24 19:45 04/12/24 13:01 Dextrose IV 05/09/24 19:44 8 mg/hr Q5H SAEID 20 mls/hr Administration 8 MG/HR Dextrose/Sodium Chloride 1,000 mls @ 80 mls/hr 04/11/24 12:15 04/12/24 14:10 D5w And Nss IV 04/13/24 01:44 80 mls/hr .[id number] SAEID Administration Lisinopril 10 mg 04/11/24 09:00 04/12/24 12:07 Lisinopril 10 Mg Tab PO 05/11/24 08:59 Not Given QAM SAEID Metoprolol Succinate 50 mg 04/10/24 09:00 04/12/24 12:07 Metoprolol Succ 50mg Ext Rel Tab PO 05/10/24 08:59 Not Given BID SAEID NPO Date Last Intake of Fluids: 04/12/24 Last Intake of Fluids Comment: POMOLOGY TEACHER reports patient has had meds and ice chips this am, 0800 Date Last Intake of Solids: 04/11/24 Time Last Intake of Solids: 23:59 Past Medical History Medical History Anxiety Barretts esophagus Carcinoma of distal third of esophagus (03/18/18) "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 post upper GI endoscopy and biopsy March 18, 2018 Adenocarcinoma Status post PET/CT March 14, 2018 FDG avidity in the distal esophagus Plan for EUS May 08, 2018" HTN (hypertension) Past Family History Family History Other Hypertension Stroke Past Surgical History Surgical History History of arthroplasty of knee History of cystoscopy History of cataract surgery Social History Smoking Status: Never smoker Hx Alcohol Use: No Hx Substance Use: No substance use type: does not use Physical Exam Vital Signs Last Vital Signs Temp 37.4 C 04/12/24 14:44 Pulse 82 04/12/24 14:44 Resp 20 04/12/24 14:44 BP 115/74 04/12/24 14:44 Pulse Ox 100 04/12/24 14:44 O2 Del Method Room Air 04/12/24 14:44 Testing Laboratory Results 04/12/24 09:51 04/12/24 09:51 Urine Color Yellow 04/11/24 Unknown Urine Appearance Clear (Clear) 04/11/24 Unknown Urine pH 6.5 (4.5-7.5) 04/11/24 Unknown Ur Specific [place] 1.012 (1.000-1.030) 04/11/24 Unknown Urine Protein Negative (Negative) 04/11/24 Unknown Urine Glucose (UA) Negative (Negative) 04/11/24 Unknown Urine Ketones Trace (Negative) H 04/11/24 Unknown Urine Nitrite Negative (Negative) 04/11/24 Unknown Ur Leukocyte Esterase Negative (Negative) 04/11/24 Unknown Urine WBC (Auto) 11-20 /hpf (0-5) H 04/11/24 17:59 Urine RBC (Auto) >20 /hpf (0-2) H 04/11/24 17:59 U Hyaline Cast (Auto) 3-5 /lpf (0-2) H 04/11/24 17:59 U Epithel Cells (Auto) 0-2 /hpf (0-2) 04/11/24 17:59 Urine Bacteria (Auto) None Seen (None Seen) 04/11/24 17:59 04/11/24 17:59 Urine Culture - Preliminary Urine,Clean Catch No growth - Less than 1,000 colonies/mL, Final report to follow.
--- NOTE | 2024-04-12 15:45 | GI REPORT ---
[facility] Patient: CONNOR TRIPP : 1935 Sex at : Male Age: 89 Years Procedure: Upper GI endoscopy Date: 04/12/2024 Attending Physician: Dimitris Haywood MD Referring MD: Grupo Sharma Md; Mumtaz Loza Indications: - Hematemesis Medications: - Monitored Anesthesia Care - Propofol per Anesthesia Complications: Procedure: - ASA Grade Assessment: IV - A patient with severe systemic disease that is a constant threat to life. - The egd scope was introduced through the mouth and advanced to the second part of the duodenum. - The upper GI endoscopy was accomplished without difficulty. - The patient tolerated the procedure well. Findings: - One cratered esophageal ulcer with no bleeding and no stigmata of recent bleeding was found in the lower third of the esophagus. Biopsies were taken with a cold forceps for histology. - The entire examined stomach was normal. - The examined duodenum was normal. - Diffuse esophagitis as well Impression: - Diffuse esophagitis as well - Esophageal ulcer with no bleeding and no stigmata of recent bleeding. Biopsied. - Normal stomach. - Normal examined duodenum. Recommendation: Procedure Code(s): - 58232, Esophagogastroduodenoscopy, flexible, transoral; with biopsy, single or multiple Diagnosis Code(s): - K22.10, Ulcer of esophagus without bleeding CPT(R) - 2023 copyright [employer]. All Rights Reserved. The CPT codes, CCI edits and ICD codes generated are intended as suggestions and were generated based on input data. These codes are preliminary and upon amusement equipment operator review may be revised to meet current compliance and payer requirements. The provider is responsible for the final determination of appropriate codes, and modifiers. Dimitris Haywood MD This document has been electronically signed. Note Initiated:04/12/2024 Note Completed:04/12/2024 3:45 PM \\[id number]
--- NOTE | 2024-04-12 15:45 | Anesthesiology Progress Note ---
Date of Service April 12, 2024 Anesthesia Post Procedure Vital Signs Vital Signs: Temp Pulse Pulse Pulse Resp BP Pulse Ox 04/12/24 14:44 37.4 C 82 20 115/74 100 04/12/24 11:16 36.4 C L 60 18 103/56 L 96 04/12/24 11:06 64 04/12/24 07:28 36.4 C L 68 18 140/76 97 04/12/24 03:43 77 18 141/75 H 98 04/12/24 01:59 85 04/11/24 19:18 36.5 C 97 H 18 135/79 96 O2 Del Method 04/12/24 14:44 Room Air 04/12/24 11:16 Room Air 04/12/24 11:06 04/12/24 07:28 Room Air 04/12/24 03:43 Room Air 04/12/24 01:59 04/11/24 19:18 Room Air Transfer of Care Handoff Completed per policy Notes Mental Status: alert / awake / arousable Patient Amnestic to Procedure: Yes Nausea / Vomiting: adequately controlled Pain: adequately controlled Airway Patency, RR, SpO2: stable & adequate BP & HR: stable & adequate Hydration State: stable & adequate Anesthetic Complications: no major complications apparent and Pt Satisfied with anesthetic care
--- NOTE | 2024-04-12 15:48 | Communication Note ---
Date of Service: April 12, 2024 See Provation note for complete report. Summary: Esophagitis with esophageal ulceration - one ulcer cratered but no active or stigmata of bleeding. Biopsies taken Rec: PPI BID Trial liquids and advance to soft as tolerated.
[2024-04-12] MEDS: LIDOCAINE 2% 2 ML VIAL/AMP(20MG/ML) INFIL ONE (16:53)
[2024-04-12] MEDS: POTASSIUM CHLORIDE / WTR 10 MEQ/100 ML PLCT IV SCH (16:53)
[2024-04-12] MEDS: PROPOFOL IV EMULSION 10 MG/ML 20 ML VIAL IV ONE (16:53)
[2024-04-12] MEDS: MAGNESIUM SULFATE / D5W 1 GM/100 ML BAG IV SCH (16:53)
[2024-04-12] MEDS: HALOPERIDOL LACTATE 5 MG/ML 1 ML VIAL IM PRN (17:07)
[2024-04-12] MEDS: METOPROLOL TARTRATE 1 MG/ML VIAL IV STA (21:54)
[2024-04-13 06:20] LABS: Hematocrit (blood only) 39.1 % (42.0-52.0); Hemoglobin 12.7 g/dl (14.0-18.0); Mean Corpuscular Hemoglobin 30.6 pg (25.0-34.0); Mean Corpuscular Hgb Conc 32.5 g/dL (32.0-36.0); Mean Corpuscular Volume 94.2 fL (80.0-100.0); Mean Platelet Volume 9.5 fL (9.4-12.4); Platelet Count 154 K/uL (130-400); RDW Coefficient of Variation 12.9 % (11.5-14.5); RDW Standard Deviation 44.5 fL (36.4-46.3); Red Blood Count 4.15 M/uL (4.70-6.10); White Blood Count 8.59 K/ul (4.8-10.8)
[2024-04-13 06:41] LABS: BUN Creatinine Ratio 19.4 (10-20); Calcium 8.3 mg/dl (8.6-10.3); Creatinine Clr Calc Pharmacy 41.9 ml/min; Est GFR (African American) 75.3 ml/min; Magnesium 1.8 mg/dl (1.7-2.4); Phosphorus 1.9 mg/dl (2.5-4.9)
[2024-04-13] MEDS ORDERED: POTASSIUM PHOS 3 MMOL/1 ML INFUSION IV STA (08:08)
[2024-04-13] MEDS: POTASSIUM CHLORIDE / WTR 10 MEQ/100 ML PLCT IV SCH (08:19)
[2024-04-13] MEDS: POTASSIUM CHLORIDE 20 MEQ/15 ML UDC PO STA (08:19)
[2024-04-13] MEDS: PANTOprazole 40 MG TAB PO SCH (08:39)
[2024-04-13] MEDS: POTASSIUM PHOSPHATE 15 MMOL in SODIUM CHLORIDE 0.9% 250 ML IV ONE (08:39)
--- NOTE | 2024-04-13 09:28 | Gastroenterology Progress Note ---
<Statement entered by Dimitris Haywood MD - 04/13/24 14:52> Patient seen and examined. Case discussed with Dejah ROMAN. Also discussed with patient's niece. He is hemodynamically stable and tolerating po. His Hgb is stable. Rec: PPI Repeat EGD in 2-3 months as OP if they decide they want to pursue work up. IP GI Service will sign off. Date of Service April 13, 2024 Assessment & Plan (1) Esophagitis: Plan: - continue with protonix 40mg PO bid. would recommend he continue with this upon discharge. Made his niece aware. - would recommend repeat EGD in 8-12 weeks to assess healing, but his niece would like to defer this given his age/overall health. Admission and Anticipated Discharge Date Admission Date: April 09, 2024 Subjective Patient resting in bed. I spoke with his nurse and nursing education consultant at bedside. No further emesis. no signs of GI bleeding. 04/13 hgb 12.7 (previously 12.4) I spoke with the patient's niece at his bedside. we reviewed his EGD. Also recommended that typically would consider repeat EGD in 8-12 weeks but given his age and overall health, she would like to defer that. His Niece does not that he has not been taking any of his home medications. EGD 04/12 Esophagitis with esophageal ulceration - one ulcer cratered but no active or stigmata of bleeding. Biopsies taken, path pending. Review of Systems Review of Systems: Unobtainable due to cognitive status Physical Exam Gastrointestinal (Abdomen): normal bowel sounds, soft, no guarding. Results & Data Results & Data Vital Signs (Past 12 Hours) Vital Signs Temp Pulse Pulse Pulse Resp BP BP 04/13/24 07:00 65 04/13/24 06:59 97.3 F L 69 16 04/13/24 02:48 98.1 F 80 18 121/64 04/12/24 22:44 62 138/76 04/12/24 22:44 98.1 F 62 18 138/76 04/12/24 22:02 76 04/12/24 21:54 80 142/95 H BP Pulse Ox O2 Del Method 04/13/24 07:00 04/13/24 06:59 95/64 L 94 Room Air 04/13/24 02:48 95 Room Air 04/12/24 22:44 04/12/24 22:44 96 Room Air 04/12/24 22:02 04/12/24 21:54 Coding Level of Care Code 21270 SUB INP/OBS CARE Diagnoses Esophagitis K20.90
--- NOTE | 2024-04-13 16:07 | Hospitalist Progress Note ---
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 Pt's niece states that pt has been coughing and "spitting up" blood for past several months but unsure of the exact timeframe. He is being managed for the following: Episodes of Hematemesis vs hemoptysis [? 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 Pt has been intermittently coughing and "spitting up" blood over the past several months per his niece - ? hematemesis. 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 Admitting CXR with large hiatal hernia, CT head with no acute finding. CT chest findings consistent with history of esophageal carcinoma. Admitting hemoglobin 14, currently stable around 12 - 13. No further vomiting/spitting up of blood per RN. EGD 04/13 - diffuse esophagitis, esophageal ulcer w/ no bleeding or stigmata of bleeding/biopsied. Normal duodenum and stomach. GI evaled, BID PPI, ADAT. Repeat EGD in 2-3 months. Monitor H&H, transfuse as needed. Hypercalcemia: Patient noted to have elevated calcium level of 11.7 on 01/21/2024. Admitting calcium of 10.8. Likely secondary to dehydration and Tums use. Per patient's niece, patient does not drink enough. Status post IV fluid. Calcium level resolved. Avoid Tums. Acute kidney injury: Creatinine at presentation 1.64, likely secondary to dehydration. Status post IV fluid. Resolved. Hypertension: Continue home blood pressure medication as able. BP fairly better. Bilateral Cerumen Impaction, Hard of Hearing: Pt saw his PCP today who noted significant cerumen impaction in both ears. c/4 scheduled Debrox drops BID for both ears x 4 days total. DVT Prophylaxis: SCDs/TEDs Code Status: FULL CODE PCP: Mumtaz Loza MD Disposition: PCU/Telemetry. pt/ot, cm to assist w/ dc plan. Admission and Anticipated Discharge Date Admission Date: April 09, 2024 Subjective Patient was seen and examined at bedside. Patient was sitting up in chair, on room air, NAD, resting comfortably. very [place]. Patient's niece was at bedside as well, who was updated on plan of care. EGD scope findings discussed. ROS not able in very detail with the patient, per RN no further vomiting of blood. Pt is eating ok. Physical Exam Physical Exam: General: WD/WN,NAD, sitting up, sleeping. Very hard of hearing HEENT: Normocephalic, atraumatic. Normal inspection, PERRL, conjunctivae normal, anicteric sclerae. External ear and nose normal, oropharynx normal. Respiratory: Normal respiratory effort, lungs clear to auscultation, no wheeze, rales, rhonchi. No accessory muscle use. Cardiovascular: Regular rate, rhythm, no murmur, normal peripheral pulses, no BLE edema. Vessels: No JVD. Abdomen/GI: Normal bowel sounds, soft, nontender, no hepatosplenomegaly. Extremities/Musculoskeletal: No cyanosis or clubbing, extremities motor strength not formally tested but appears intact. Neurologic: EOMI, accommodation nl, no face palsy Skin: No rashes, normal color, warm/dry. Results & Data Results & Data Vital Signs (Past 12 Hours) Vital Signs Temp Pulse Pulse Resp BP BP Pulse Ox 04/13/24 15:24 85 04/13/24 15:09 36.4 C L 74 18 129/70 98 04/13/24 11:03 36.9 C 77 18 113/69 98 04/13/24 08:00 04/13/24 07:00 65 04/13/24 06:59 36.3 C L 69 16 95/64 L 94 O2 Del Method 04/13/24 15:24 04/13/24 15:09 Room Air 04/13/24 11:03 Room Air 04/13/24 08:00 Room Air 04/13/24 07:00 04/13/24 06:59 Room Air
[2024-04-14] MEDS ORDERED: POTASSIUM PHOS 3 MMOL/1 ML INFUSION IV STA (07:37)
[2024-04-14] MEDS: POTASSIUM PHOSPHATE 15 MMOL in SODIUM CHLORIDE 0.9% 250 ML IV ONE (09:17)
[2024-04-14] MEDS: POTASSIUM CHLORIDE PWD 20 MEQ PACK PO SCH (09:17)
[2024-04-14] MEDS: POTASSIUM CHLORIDE / WTR 10 MEQ/100 ML PLCT IV SCH (13:27)
--- NOTE | 2024-04-14 14:20 | Hospitalist Progress Note ---
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 Pt's niece states that pt has been coughing and "spitting up" blood for past several months but unsure of the exact timeframe. He is being managed for the following: Episodes of Hematemesis vs hemoptysis [? 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 Pt has been intermittently coughing and "spitting up" blood over the past several months per his niece - ? hematemesis. 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 Admitting CXR with large hiatal hernia, CT head with no acute finding. CT chest findings consistent with history of esophageal carcinoma. Admitting hemoglobin 14, currently stable around 12 - 13. No further vomiting/spitting up of blood per RN. EGD 04/13 - diffuse esophagitis, esophageal ulcer w/ no bleeding or stigmata of bleeding/biopsied. Normal duodenum and stomach. GI evaled, BID PPI, ADAT. Repeat EGD in 2-3 months. Monitor H&H, transfuse as needed. Hypercalcemia: Patient noted to have elevated calcium level of 11.7 on 01/21/2024. Admitting calcium of 10.8. Likely secondary to dehydration and Tums use. Per patient's niece, patient does not drink enough. Status post IV fluid. Calcium level resolved. Avoid Tums. Acute kidney injury: Creatinine at presentation 1.64, likely secondary to dehydration. Status post IV fluid. Resolved. Hypertension: Continue home blood pressure medication as able. BP fairly better. Bilateral Cerumen Impaction, Hard of Hearing: Pt saw his PCP today who noted significant cerumen impaction in both ears. c/4 scheduled Debrox drops BID for both ears x 4 days total. DVT Prophylaxis: SCDs/TEDs Code Status: FULL CODE PCP: Mumtaz Loza MD Disposition: med/surg pt/ot, cm to assist w/ dc plan. will likely need placement. Admission and Anticipated Discharge Date Admission Date: April 09, 2024 Subjective Patient was seen and examined at bedside. Patient was sitting up in chair, on room air, NAD, resting comfortably. very [place]. Sitter at bedside, some confusion/agitation in AM. ROS not able in very detail with the patient, per RN no further vomiting of blood. Pt is eating ok. Physical Exam Physical Exam: General: WD/WN,NAD, sitting up, sleeping. Very hard of hearing HEENT: Normocephalic, atraumatic. Normal inspection, PERRL, conjunctivae normal, anicteric sclerae. External ear and nose normal, oropharynx normal. Respiratory: Normal respiratory effort, lungs clear to auscultation, no wheeze, rales, rhonchi. No accessory muscle use. Cardiovascular: Regular rate, rhythm, no murmur, normal peripheral pulses, no BLE edema. Vessels: No JVD. Abdomen/GI: Normal bowel sounds, soft, nontender, no hepatosplenomegaly. Extremities/Musculoskeletal: No cyanosis or clubbing, extremities motor strength not formally tested but appears intact. Neurologic: EOMI, accommodation nl, no face palsy Skin: No rashes, normal color, warm/dry. Results & Data Results & Data Vital Signs (Past 12 Hours) Vital Signs Temp Pulse Pulse Resp BP Pulse Ox O2 Del Method 04/14/24 11:33 36.7 C 79 20 126/78 98 Room Air 04/14/24 06:58 36.6 C 81 20 150/89 H 98 Room Air 04/14/24 06:26 85 04/14/24 06:00 36.6 C 72 20 124/76 98 Room Air
[2024-04-14] MEDS: ZOLPIDEM TARTRATE 5 MG TAB PO STA (21:25)
[2024-04-15 07:58] LABS: Hematocrit (blood only) 36.9 % (42.0-52.0); Hemoglobin 12.2 g/dl (14.0-18.0); Mean Corpuscular Hemoglobin 30.5 pg (25.0-34.0); Mean Corpuscular Hgb Conc 33.1 g/dL (32.0-36.0); Mean Corpuscular Volume 92.3 fL (80.0-100.0); Mean Platelet Volume 9.5 fL (9.4-12.4); Platelet Count 162 K/uL (130-400); RDW Coefficient of Variation 12.6 % (11.5-14.5); RDW Standard Deviation 42.9 fL (36.4-46.3); White Blood Count 7.32 K/ul (4.8-10.8)
[2024-04-15 08:30] LABS: BUN Creatinine Ratio 29.2 (10-20); Calcium 8.2 mg/dl (8.6-10.3); Creatinine Clr Calc Pharmacy 42.6 ml/min; Est GFR (African American) 67.4 ml/min; Est GFR (Non-African American) 58.1 ml/min; Magnesium 1.4 mg/dl (1.7-2.4); Potassium 3.8 mmol/L (3.5-5.1)
[2024-04-15] MEDS: MAGNESIUM SULFATE / D5W 1 GM/100 ML BAG IV SCH (10:04)
[2024-04-15] MEDS: POT PHOSPHATE MONOBASIC W/ SOD TAB PO SCH (13:56)
[2024-04-15] MEDS ORDERED: D5W AND 1/2NSS 1,000 ML IV SCH (15:30)
[2024-04-15] MEDS: D5W AND 1/2NSS + 20MEQ KCL 20 MEQ/1,000 ML BAG IV SCH (15:57)
--- NOTE | 2024-04-15 16:39 | Hospitalist Progress Note ---
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 Pt's niece states that pt has been coughing and "spitting up" blood for past several months but unsure of the exact timeframe. He is being managed for the following: Diffuse esophagitis with esophageal ulcer without evidence of bleeding- s/p EGD 04/13 with findings as stated, normal stomach and duodenum. This was likely the source of his hematemesis and is now resolved. 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 Acute urinary retention- placed on driscoll. will start on flomax, also on bowel regimen for constipation. Will consider voiding trial as indicated. Hypokalemia- resolved Hypomagnesemia- repleted, recheck in am Hypophosphatemia- repleted, recheck in am Delirium- continue delirium precautions. currently on 1:1 at bedside. will continue gentle ivf as poor oral intake Mild hypercalcemia due to dehydration and tums use: resolved Acute kidney injury: resolved, Cr 1.64-> 1.1. Hypertension: stable, on toprol, norvasc, lisinopril Bilateral Cerumen Impaction, Hard of Hearing: s/p debrox. Now with hearing aids which seem to be helping. DVT Prophylaxis: sc heparin- if hematemesis recurs, will discontinue. Disposition: TBD. Will need to come off of 1:1 before he can go to rehab Time spent: Approx 35 mins Admission and Anticipated Discharge Date Admission Date: April 09, 2024 Subjective Patient was seen and examined at bedside. Hard of hearing, arousable with verbal stimuli, answers simple questions intermittently and goes back to sleep. Had urinary retention and was placed on Driscoll. no reported bowel movement during this admission. Poor appetite per RN. Review of Systems Review of Systems: All systems reviewed & are unremarkable except as noted in Subjective Physical Exam Physical Exam: General: Lying comfortably in bed, not in acute distress, on room air HEENT: AGUSTIN, hard of hearing Chest: Fair breath sounds bilaterally CVS: Regular, normal heart sounds Abdomen: Soft, non tender, not distended, normal bowel sounds Neuro: Sleeping but easily arousable, answers simple question intermittently, Extremities: No edema Genitourinary: Driscoll with soren urine Results & Data Results & Data Vital Signs (Past 12 Hours) Vital Signs Temp Pulse Resp BP Pulse Ox O2 Del Method 04/15/24 14:39 37.0 C 95 H 18 149/86 H 97 Room Air 04/15/24 07:10 87 18 115/74 97 Room Air Laboratory Results Short CBC 04/15/24 Range/Units 07:01 WBC 7.32 (4.8-10.8) K/ul Hgb 12.2 L (14.0-18.0) g/dl Hct 36.9 L (42.0-52.0) % Plt Count 162 (130-400) K/uL BMP 04/15/24 07:01 Sodium 142 Potassium 3.8 Chloride 111 H Carbon Dioxide 22 BUN 33 H Creatinine 1.13 Glucose 88 Calcium 8.2 L
[2024-04-15] MEDS: POLYETHYLENE (MIRALAX) 17 GM PACK PO SCH (17:14)
[2024-04-15] MEDS: DOCUSATE SODIUM/SENNA 50/8.6MG TAB PO SCH (17:15)
[2024-04-15] MEDS: HEPARIN SOD 5,000 UNIT/0.5 ML VIAL SQ SCH (20:18)
[2024-04-15] MEDS: TAMSULOSIN HCL 0.4 MG CAP PO SCH (20:18)
[2024-04-16] MEDS: ACETAMINOPHEN 325 MG TAB PO PRN (21:11)
[2024-04-16 21:57] LABS: Appearance Urine Clear (Clear); Bacteria Urine Automated 1+ (None Seen); Bilirubin Urine Negative (Negative); Blood Urine 2+ (Negative); Cast Urine Automated 0-2 /lpf (0-2); Color Urine Dark Yellow; Epithelial Cell Urine Auto 0-2 /hpf (0-2); Glucose Urine UA Negative (Negative); Ketones Urine Negative (Negative); Leukocyte Esterase Urine 1+ (Negative); Mucus Urine Present (None Prsent); Nitrite Urine Negative (Negative); Protein Urine 2+ (Negative); RBC Urine Automated >20 /hpf (0-2); Specific Gravity Urine 1.017 (1.000-1.030); Urobilinogen Urine Positive (Negative); pH Urine 6.5 (4.5-7.5)
[2024-04-17 06:49] LABS: Hematocrit (blood only) 35.9 % (42.0-52.0); Hemoglobin 11.9 g/dl (14.0-18.0); Mean Corpuscular Hemoglobin 30.7 pg (25.0-34.0); Mean Corpuscular Hgb Conc 33.1 g/dL (32.0-36.0); Mean Corpuscular Volume 92.5 fL (80.0-100.0); Mean Platelet Volume 9.1 fL (9.4-12.4); Platelet Count 155 K/uL (130-400); RDW Coefficient of Variation 12.7 % (11.5-14.5); RDW Standard Deviation 43.3 fL (36.4-46.3); Red Blood Count 3.88 M/uL (4.70-6.10); White Blood Count 5.07 K/ul (4.8-10.8)
--- NOTE | 2024-04-17 08:35 | XRay Report ---
XR chest 1V portable CLINICAL HISTORY: fever TECHNIQUE: Single frontal radiograph of the chest was obtained. Comparison: Comparison is made to chest radiograph 04/09/2024 FINDINGS: No lines and tubes are seen. Cardiomegaly is noted. The aortic arch is calcified. Prominence and ceph alization of the vasculature is seen. No evidence of pleural effusion or pneumothorax. IMPRESSION: Cardiomegaly and mild pulmonary edema. No evidence of pneumonia. ACT 112: Negative or not required by law. Electronically signed by: Zhen Real M.D. 04/17/2024 8:33 AM
[2024-04-17 11:46] LABS: Magnesium 1.4 mg/dl (1.7-2.4); Potassium 3.4 mmol/L (3.5-5.1)
[2024-04-17 11:51] LABS: BUN Creatinine Ratio 20.6 (10-20); Creatinine Clr Calc Pharmacy 49.6 ml/min; Est GFR (Non-African American) 69.9 ml/min; Phosphorus 1.7 mg/dl (2.5-4.9)
[2024-04-17] MEDS: cefTRIAXone SODIUM 2,000 MG/50 ML BAG IV SCH (11:52)
[2024-04-17] MEDS ORDERED: POTASSIUM PHOS 3 MMOL/1 ML INFUSION IV STA (15:28)
[2024-04-17] MEDS ORDERED: VANCOMYCIN CONSULT ACTIVE PRN (15:32)
--- NOTE | 2024-04-17 15:44 | Hospitalist Progress Note ---
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 Pt's niece states that pt has been coughing and "spitting up" blood for past several months but unsure of the exact timeframe. He is being managed for the following: UTI in setting of indwelling driscoll catheter- had fever 38.5 yesterday, infection work up was done which shows UTI with GPC. Could be enterococcus. Will start on iv vancomycin pending urine and blood culture results. Will discontinue driscoll and have bladder-scan straight cath prn. Deescalate antibiotic per culture results. CXR negative for PNA but mild pulm edema for which will discontinue maintenance IVF. Hypokalemia- repleted, recheck in am Hypomagnesemia- repleted, recheck in am Hypophosphatemia- repleted, recheck in am Acute urinary retention- could in setting on his encephalopathy which is now resolved. Voiding trial esther with the CAUTI. Already on flomax and bowel regimen. Will discontinue driscoll and have him on straight cath protocol. Diffuse esophagitis with esophageal ulcer without evidence of bleeding- s/p EGD 04/13 with findings as stated, normal stomach and duodenum. This was likely the source of his hematemesis and is now resolved. 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 Delirium- seems resolved. Now AAO. Off of 1:1. Delirium precautions. Mild hypercalcemia due to dehydration and tums use: resolved Acute kidney injury: resolved, Cr 1.64-> 1.1. Hypertension: stable, on toprol, norvasc, lisinopril Bilateral Cerumen Impaction, Hard of Hearing: s/p debrox. Now with hearing aids which seem to be helping. DVT Prophylaxis: sc heparin- if hematemesis recurs, will discontinue. Disposition: Will need rehab at discharge. Currently on iv antibiotics pending clx results. Time spent: Approx 50 mins Admission and Anticipated Discharge Date Admission Date: April 09, 2024 Subjective Patient was seen and examined at bedside. He is fully awake and alert today. He is conversing well. Denies any ongoing issues. Noted fever overnight with UTI showing GPC, no PNA on CXR. No fever today. No other issues. Review of Systems Review of Systems: All systems reviewed & are unremarkable except as noted in Subjective Physical Exam Physical Exam: General: Sitting comfortably in bed, not in acute distress, on room air HEENT: AGUSTIN, hard of hearing Chest: Fair breath sounds bilaterally CVS: Regular, normal heart sounds Abdomen: Soft, non tender, not distended, normal bowel sounds Neuro: AAOx3. Conversing well. Extremities: No edema Genitourinary: Driscoll with soren urine Results & Data Results & Data Vital Signs (Past 12 Hours) Vital Signs Temp Pulse Resp BP BP Pulse Ox O2 Del Method 04/17/24 14:59 36.9 C 78 17 139/79 94 Room Air 04/17/24 07:15 Room Air 04/17/24 07:12 37.1 C 83 17 152/74 H 92 Room Air Laboratory Results Short CBC 04/17/24 Range/Units 06:12 WBC 5.07 (4.8-10.8) K/ul Hgb 11.9 L (14.0-18.0) g/dl Hct 35.9 L (42.0-52.0) % Plt Count 155 (130-400) K/uL BMP 04/17/24 06:12 Sodium 139 Potassium 3.4 L Chloride 108 H Carbon Dioxide 21 BUN 20 Creatinine 0.97 Glucose 142 H Calcium 8.0 L Urine 04/16/24 Range/Units 21:00 Urine Color Dark Yellow Urine Appearance Clear (Clear) Urine pH 6.5 (4.5-7.5) Ur Specific Butternut 1.017 (1.000-1.030) Urine Protein 2+ H (Negative) Urine Glucose (UA) Negative (Negative)
[2024-04-17] MEDS ORDERED: VANCOMYCIN HCL 1,000 MG in SODIUM CHLORIDE 0.9% 250 ML IV SCH (15:45)
--- NOTE | 2024-04-17 16:11 | Pharmacy Report ---
Pharmacy PK ABX Note - Date of Service April 17, 2024 - Assessment and Plan Assessment * 89 year old M receiving vancomycin for treatment of UTI. Acute urinary retention and JEAN CARLOS noted earlier this visit. Randall was placed. * PMH: prediabetes, esophageal CA s/p chemo and radiation, bladder CA * Pertinent microbiologic data includes: 04/11 urine culture w no growth. 04/16 urine culture w GPC. 04/16 blood cultures NGTD * SCr improved from JEAN CARLOS earlier this visit. Now near baseline. Plan Vancomycin * Loading dose: 1250 mg IV x 1 * Maintenance dose: 1250 mg IV every 24 hours * Regimen is predicted to achieve target AUC/JAMES of 400-600 mg/L.hr * Random level ordered for: 04/19 AM Pharmacy will continue to follow and will adjust dose/frequency as necessary. Thank you. Pharmacy has transitioned to AUC monitoring for vancomycin. AUC/JAMES is the preferred PK/PD target and is associated with decreased risk of nephrotoxicity compared to traditional trough targets.
[2024-04-17] MEDS: VANCOMYCIN HCL 1,250 MG in SODIUM CHLORIDE 0.9% 250 ML IV STA (16:17)
[2024-04-17] MEDS: POTASSIUM PHOSPHATE 24 MMOL in SODIUM CHLORIDE 0.9% 500 ML IV ONE (16:22)
[2024-04-17] MEDS: MAGNESIUM SULFATE / D5W 1 GM/100 ML BAG IV SCH (16:54)
[2024-04-18 06:34] LABS: Hematocrit (blood only) 34.8 % (42.0-52.0); Hemoglobin 11.4 g/dl (14.0-18.0); Mean Corpuscular Hemoglobin 29.9 pg (25.0-34.0); Mean Corpuscular Hgb Conc 32.8 g/dL (32.0-36.0); Mean Corpuscular Volume 91.3 fL (80.0-100.0); Mean Platelet Volume 9.2 fL (9.4-12.4); Platelet Count 164 K/uL (130-400); RDW Coefficient of Variation 12.5 % (11.5-14.5); RDW Standard Deviation 41.8 fL (36.4-46.3); Red Blood Count 3.81 M/uL (4.70-6.10); White Blood Count 4.39 K/ul (4.8-10.8)
[2024-04-18 06:52] LABS: BUN Creatinine Ratio 15.7 (10-20); Calcium 7.9 mg/dl (8.6-10.3); Est GFR (African American) 91.7 ml/min; Est GFR (Non-African American) 79.1 ml/min; Magnesium 1.6 mg/dl (1.7-2.4); Phosphorus 2.3 mg/dl (2.5-4.9); Potassium 3.4 mmol/L (3.5-5.1)
[2024-04-18] MEDS: MAGNESIUM SULFATE / D5W 1 GM/100 ML BAG IV ONE (09:27)
[2024-04-18] MEDS: POTASSIUM CHLORIDE CRTAB 20 MEQ TABCR PO ONE (10:30)
[2024-04-18] MEDS: POT PHOSPHATE MONOBASIC W/ SOD TAB PO SCH (10:32)
[2024-04-18] MEDS: VANCOMYCIN HCL 1,250 MG in SODIUM CHLORIDE 0.9% 250 ML IV SCH (10:59)
--- NOTE | 2024-04-18 15:25 | Hospitalist Progress Note ---
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 Pt's niece states that pt has been coughing and "spitting up" blood for past several months but unsure of the exact timeframe. He is being managed for the following: UTI due to E fecalis in setting of indwelling driscoll catheter- had fever 38.5 on 04/16, infection work up was done which shows UTI with E fecalis sensitive to penicillin, nitrofurantoin, cipro. Will change iv vancomycin to macrobid. Hypokalemia- repleted, recheck in am Hypomagnesemia- repleted, recheck in am Hypophosphatemia- repleted, recheck in am Acute urinary retention- s/p driscoll which was removed yesterday for voiding trial. Per RN, noted to have urinary retention in 600s today. Will continue bladder scan straight cath protocol. If he continues to retain and not able to void, will place back on driscoll. Already on flomax and bowel regimen. Diffuse esophagitis with esophageal ulcer without evidence of bleeding- s/p EGD 04/13 with findings as stated, normal stomach and duodenum. This was likely the source of his hematemesis and is now resolved. 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 Delirium- seems resolved. Now AAO. Off of 1:1. Delirium precautions. Mild hypercalcemia due to dehydration and tums use: resolved Acute kidney injury: resolved, Cr 1.64-> 1.1. Hypertension: stable, on toprol, norvasc, lisinopril Bilateral Cerumen Impaction, Hard of Hearing: s/p debrox. Now with hearing aids which seem to be helping. DVT Prophylaxis: sc heparin. Disposition: Stable to go to [facility]. Wheel chair van for transportation could not be arranged today per CM. Will discharge tomorrow to [facility]. Time spent: Approx 35 mins Admission and Anticipated Discharge Date Admission Date: April 09, 2024 Subjective Patient was seen and examined at bedside. He remains stable, awake, alert, talking. No more fever. Denies any issues. Review of Systems Review of Systems: All systems reviewed & are unremarkable except as noted in Subjective Physical Exam Physical Exam: General: Sitting comfortably in bed, not in acute distress, on room air HEENT: AGUSTIN, hard of hearing Chest: Fair breath sounds bilaterally CVS: Regular, normal heart sounds Abdomen: Soft, non tender, not distended, normal bowel sounds Neuro: AAOx3. Conversing well. Extremities: No edema Results & Data Results & Data Vital Signs (Past 12 Hours) Vital Signs Temp Pulse Resp BP Pulse Ox O2 Del Method 04/18/24 08:19 36.5 C 78 18 126/77 93 Room Air Laboratory Results Short CBC 04/18/24 Range/Units 05:24 WBC 4.39 L (4.8-10.8) K/ul Hgb 11.4 L (14.0-18.0) g/dl Hct 34.8 L (42.0-52.0) % Plt Count 164 (130-400) K/uL BMP 04/18/24 05:24 Sodium 139 Potassium 3.4 L Chloride 109 H Carbon Dioxide 23 BUN 13 Creatinine 0.83 Glucose 87 Calcium 7.9 L
[2024-04-18] MEDS: NITROFURANTOIN MONOHYDRATE 100 MG CAP PO SCH (20:23)
[2024-04-18] MEDS ORDERED: Nursing to Pharmacy Communication SCH (20:45)
[2024-04-18] MEDS ORDERED: AMPICILLIN SOD/SULBACTAM SOD 3 GM VIAL IV SCH (21:00)
[2024-04-18] MEDS: AMPICILLIN/SULBACTAM SOD 3,000 MG in SODIUM CHLOR 0.9% MINI-B 100 ML IV SCH (22:25)
[2024-04-18] MEDS: SODIUM CHLORIDE 0.9% 1,000 ML IV SCH (22:43)
[2024-04-18] MEDS: POTASSIUM CHLORIDE / WTR 10 MEQ/100 ML PLCT IV SCH (22:45)
[2024-04-19 07:12] LABS: Calcium 8.5 mg/dl (8.6-10.3); Creatinine Clr Calc Pharmacy 59.4 ml/min; Est GFR (African American) 92.6 ml/min; Est GFR (Non-African American) 79.9 ml/min; Magnesium 1.7 mg/dl (1.7-2.4); Phosphorus 2.1 mg/dl (2.5-4.9); Potassium 3.5 mmol/L (3.5-5.1)
[2024-04-19] MEDS: POT PHOSPHATE MONOBASIC W/ SOD TAB PO SCH (08:52)
--- NOTE | 2024-04-19 11:35 | Discharge Summary ---
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 History mostly obtained from patient's niece at bedside and associated chart review. Patient is very hard of heading, but is A+Ox4 to very loud verbal commands. His niece reports that you have to speak very loudly into his right ear and then he will be able to hear you - patient speaks very loudly at baseline. His niece states that he's been coughing and "spitting up" blood for the past several months - she is unsure of the exact timeframe. She has only been visiting him for the past 2 days. She mentions he has been well lately, no recent fevers or illnesses. Patient used to go to [place], but now lives independently here. His niece reports that she accompanied him to an PCP appointment this morning. She was told to bring him here to the ED secondary to his high calcium level, which has been elevated since 01/21/2024 - it was 11.7 at that time. His calcium level had not been repeated since then. His PCP was concerned that he was possibly confused due to the high calcium level, but his niece mentions he's been acting rather normal. He has been repeating himself more, but she hasn't noticed any abnormal behavior. Patient denies any SOB, chest pain, abdominal pain or urinary/bowel habit issues. His niece is unsure if he has been taking his medications as prescribed at home. I was able to obtain a copy of his current medication list that his niece had brought with her to the ED from his PCP visit today. Admission Exam Per Admitting Provider General: WD/WN, vitals as above, NAD, sitting up in bed, pleasant. Very hard of hearing - but responsive to loud verbal commands. A+O x 3. HEENT: Normocephalic, atraumatic. Normal inspection, PERRL, conjunctivae normal, anicteric sclerae. External ear and nose normal, oropharynx normal. Respiratory: Normal respiratory effort, lungs clear to auscultation, no wheeze, rales, rhonchi. No accessory muscle use. Cardiovascular: Regular rate, rhythm, no murmur, normal peripheral pulses, no BLE edema. Vessels: No JVD. Abdomen/GI: Normal bowel sounds, soft, nontender, no hepatosplenomegaly. Extremities/Musculoskeletal: No cyanosis or clubbing, extremities motor strength not formally tested but appears intact. Neurologic: EOMI, accommodation nl, no face palsy, no dysarthria and moves all extremities when instructed to. Skin: No rashes, normal color, warm/dry. Principal Diagnosis UTI due to Enterococcus, Esophagitis, Esophageal ulcer without bleeding, Dyselectrolytemia, JEAN CARLOS Discharge Exam General: Sitting comfortably in bed, not in acute distress, on room air HEENT: AGUSTIN, hard of hearing Chest: Fair breath sounds bilaterally CVS: Regular, normal heart sounds Abdomen: Soft, non tender, not distended, normal bowel sounds Neuro: AAOx3. Conversing well. Extremities: No edema Discharge Data Allergies Allergy/AdvReac Type Severity Reaction Status Date / Time No Known Allergies Allergy Verified 04/12/24 15:02 Consultations 04/09/24 19:34 ED Decision to Admit Stat 04/09/24 19:53 Consult Gastroenterology Routine Procedures Performed Operation Date: 04/12/24 17:25 Actual Procedures p EGD Biopsy Cytology - Dimirtis Haywood MD Ordered Studies 04/09/24 15:46 CT head/brain wo con Stat 04/09/24 20:56 CT chest without contrast [CT chest diagnostic wo con] Stat Laboratory Results WBC 4.39 K/ul (4.8-10.8) L 04/18/24 05:24 RBC 3.81 M/uL (4.70-6.10) L 04/18/24 05:24 Hgb 11.4 g/dl (14.0-18.0) L 04/18/24 05:24 Hct 34.8 % (42.0-52.0) L 04/18/24 05:24 MCV 91.3 fL (80.0-100.0) 04/18/24 05:24 MCH 29.9 pg (25.0-34.0) 04/18/24 05:24 MCHC 32.8 g/dL (32.0-36.0) 04/18/24 05:24 RDW Std Deviation 41.8 fL (36.4-46.3) 04/18/24 05:24 RDW Coeff of Bereket 12.5 % (11.5-14.5) 04/18/24 05:24 Plt Count 164 K/uL (130-400) 04/18/24 05:24 MPV 9.2 fL (9.4-12.4) L 04/18/24 05:24 Immature Gran % (Auto) 0.1 % 04/09/24 17:05 Neut % (Auto) 67.5 % 04/09/24 17:05 Lymph % (Auto) 20.2 % 04/09/24 17:05 Ada % (Auto) 11.4 % 04/09/24 17:05 Eos % (Auto) 0.3 % 04/09/24 17:05 Baso % (Auto) 0.5 % 04/09/24 17:05 Neut # (Auto) 4.99 K/uL (1.40-6.50) 04/09/24 17:05 Lymph # (Auto) 1.49 K/uL (1.20-3.40) 04/09/24 17:05 Ada # (Auto) 0.84 K/uL (0.11-0.59) H 04/09/24 17:05 Eos # (Auto) 0.02 K/uL (0.00-0.50) 04/09/24 17:05 Baso # (Auto) 0.04 K/uL (0.00-0.20) 04/09/24 17:05 Immature Gran # (Auto) 0.01 K/uL (0.01-0.20) 04/09/24 17:05 Sodium 140 mmol/L (136-145) 04/19/24 05:57 Potassium 3.5 mmol/L (3.5-5.1) 04/19/24 05:57 Chloride 108 mmol/L (98-107) H 04/19/24 05:57 Carbon Dioxide 26 mmol/L (21-32) 04/19/24 05:57 Anion Gap 6 (3-11) 04/19/24 05:57 BUN 13 mg/dl (6-23) 04/19/24 05:57 Creatinine 0.81 mg/dl (0.6-1.4) 04/19/24 05:57 Est Cr Clr Drug Dosing 59.4 ml/min 04/19/24 05:57 Est GFR ( Amer) 92.6 ml/min 04/19/24 05:57 Est GFR (Non-Af Amer) 79.9 ml/min 04/19/24 05:57 BUN/Creatinine Ratio 16.0 (10-20) 04/19/24 05:57 Glucose 81 mg/dl (70-99(Fasting)) 04/19/24 05:57 Calcium 8.5 mg/dl (8.6-10.3) L 04/19/24 05:57 Phosphorus 2.1 mg/dl (2.5-4.9) L 04/19/24 05:57 Magnesium 1.7 mg/dl (1.7-2.4) 04/19/24 05:57 Total Bilirubin 0.7 mg/dl (0.2-1.0) 04/09/24 17:05 AST 15 U/L (13-39) 04/09/24 17:05 ALT 9 U/L (7-52) 04/09/24 17:05 Alkaline Phosphatase 52 U/L (34-104) 04/09/24 17:05 Troponin I High Sens 7.5 pg/ml (0-20) 04/09/24 17:05 Total Protein 7.8 gm/dl (6.0-8.3) 04/09/24 17:05 Albumin 4.5 gm/dl (3.4-5.0) 04/09/24 17:05 Globulin 3.3 gm/dl (2.5-4.0) 04/09/24 17:05 Albumin/Globulin Ratio 1.4 (0.9-2) 04/09/24 17:05 TSH 0.900 uIu/ml (0.300-4.500) 04/09/24 17:05 Urine Color Dark Yellow 04/16/24 21:00 Urine Appearance Clear (Clear) 04/16/24 21:00 Urine pH 6.5 (4.5-7.5) 04/16/24 21:00 Ur Specific Ney 1.017 (1.000-1.030) 04/16/24 21:00 Urine Protein 2+ (Negative) H 04/16/24 21:00 Urine Glucose (UA) Negative (Negative) 04/16/24 21:00 Urine Ketones Negative (Negative) 04/16/24 21:00 Urine Blood 2+ (Negative) H 04/16/24 21:00 Urine Nitrite Negative (Negative) 04/16/24 21:00 Urine Bilirubin Negative (Negative) 04/16/24 21:00 Urine Urobilinogen Positive (Negative) H 04/16/24 21:00 Ur Leukocyte Esterase 1+ (Negative) H 04/16/24 21:00 Urine WBC (Auto) 11-20 /hpf (0-5) H 04/16/24 21:00 Urine RBC (Auto) >20 /hpf (0-2) H 04/16/24 21:00 U Hyaline Cast (Auto) 0-2 /lpf (0-2) 04/16/24 21:00 U Epithel Cells (Auto) 0-2 /hpf (0-2) 04/16/24 21:00 Urine Bacteria (Auto) 1+ (None Seen) H 04/16/24 21:00 Urine Mucus Present (None Prsent) A 04/16/24 21:[address] 04/09/24 15:46 CT SCAN OF THE BRAIN WITHOUT IV CONTRAST CLINICAL HISTORY: Change in mental status. COMPARISON STUDY: CT of the brain dated 09/30/2023 TECHNIQUE: Unenhanced axial CT scan of the brain is performed from the vertex to the skull base. A dose lowering technique was utilized adhering to the principles of ALARA. CT DOSE: 1687.29 mGy.cm FINDINGS: Brain parenchyma: There is age-related involutional change noting mild subcortical and periventricular microangiopathic disease. There is no hemorrhage, mass effect, or evidence of acute territorial ischemia by CT criteria. Cisneros-white matter differentiation is preserved. No extra-axial fluid collection is seen. Ventricles, sulci, cisterns: Prominent secondary to involutional change. Intracranial vasculature: There is atherosclerotic calcification of the cavernous carotid and vertebral arteries. Calvarium: Unremarkable. Sinuses and mastoids: There is mild mucosal thickening in the right sphenoid sinus. The remaining paranasal sinuses are clear. The mastoid air cells are well pneumatized. Orbits: The bony orbits are grossly intact. There are bilateral ocular lens implants. IMPRESSION: There is no hemorrhage, mass effect, or evidence of acute linnette torial ischemia by CT criteria. ACT 112: Negative or not required by law. Electronically signed by: Kimani Parra M.D. 04/09/2024 4:[address] 04/09/24 20:56 Exam(s): CT CHEST Without Contrast EXAM: CT Chest Without Intravenous Contrast CLINICAL HISTORY: Reason for exam: Hemoptysis, hx of esophageal CA. TECHNIQUE: Axial computed tomography images of the chest without intravenous contrast. CTDI is 13.73 mGy and DLP is 420.94 mGy-cm. Automated exposure control was utilized for the study. A dose lowering technique was utilized adhering to the principles of ALARA. COMPARISON: 10/29/11. FINDINGS: Lungs: Unremarkable. Mild bibasilar subsegmental atelectasis demonstrated. Lungs are otherwise clear. Punctate calcified granuloma left upper lobe noted. Pleural space: Unremarkable. No pneumothorax. No significant effusion. Heart: Heart is normal in size and there are mild severity coronary artery calcifications. Calcifications of the aortic valve leaflets noted, which may represent aortic stenosis. Trace pericardial effusion. Mediastinum: Diffuse thickening of the esophageal wall demonstrated, correlating to provided clinical history of esophageal carcinoma. Large hiatal hernia redemonstrated. Bones/joints: Unremarkable. No acute fracture. No dislocation. Thoracic spine kyphosis with levoscoliosis. Soft tissues: Unremarkable. Vasculature: No aneurysmal dilatation of the thoracic aorta. Lymph nodes: Unremarkable. No enlarged lymph nodes. Gallbladder and bile ducts: Cholelithiasis noted. Kidneys and ureters: Severe left hydronephrosis partially visualized. IMPRESSION: 1. Diffuse thickening of the esophageal wall demonstrated, correlating to provided clinical history of esophageal carcinoma. 2. Severe left hydronephrosis partially visualized. Electronically signed by: William Stauffer MD 04/10/24 01:47 AM Chest X-Ray 04/16/24 20:24 XR chest 1V portable CLINICAL HISTORY: fever TECHNIQUE: Single frontal radiograph of the chest was obtained. Comparison: Comparison is made to chest radiograph 04/09/2024 FINDINGS: No lines and tubes are seen. Cardiomegaly is noted. The aortic arch is calcified. Prominence and cephalization of the vasculature is seen. No evidence of pleural effusion or pneumothorax. IMPRESSION: Cardiomegaly and mild pulmonary edema. No evidence of pneumonia. ACT 112: Negative or not required by law. Electronically signed by: Zhen Real M.D. 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 Pt's niece states that pt has been coughing and "spitting up" blood for past several months but unsure of the exact timeframe. He is being managed for the following: UTI due to E fecalis in setting of indwelling driscoll catheter- had fever 38.5 on 04/16, infection work up was done which shows UTI with E fecalis sensitive to penicillin, nitrofurantoin, cipro. S/p vancomycin->macrobid but patient refused oral medications, hence macrobid was changed to iv ampicillin and is being discharged on the same to [facility] for 5 more days. Hypokalemia- resolved Hypomagnesemia- resolved Hypophosphatemia- improving, continue supplementation Acute urinary retention- failed voiding trial and back on driscoll. Continue flomax and bowel regimen. Voiding trial when ready in the next few days at the rehab. Will need uro eval as OP if he continues to fail voiding trial. Diffuse esophagitis with esophageal ulcer without evidence of bleeding- s/p EGD 04/13 with findings as stated, normal stomach and duodenum. This was likely the source of his hematemesis and is now resolved. 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 Delirium- seems resolved. Now AAO. Off of 1:1. Delirium precautions. Mild hypercalcemia due to dehydration and tums use: resolved Acute kidney injury: resolved, Cr 1.64-> 1.1. Hypertension: stable, on toprol, norvasc, lisinopril Bilateral Cerumen Impaction, Hard of Hearing: s/p debrox. Now with hearing aids which seem to be helping. Total Time Total Time Spent Total Time Spent (In Minutes): 32 Discharge Plan Discharge Items Patient Disposition: Transfer Inpatient Rehab Fac Reason For Visit: HYPERCALCEMIA, HEMATEMESIS Discharge Diagnosis: UTI due to Enterococcus, Urinary retention, Esophagitis, Esophageal ulcer without bleeding, Dyselectrolytemia, JEAN CARLOS Activity: Resume your previous activity Non-emergency contact: Primary Care Provider, [employer] Supervisor and Urologist Follow-up/Referrals: Mumtaz Loza MD [Primary Care Provider] - Diet: Regular Addtl Attending Provider Instructions: Continue ampicillin to complete antibiotic course for UTI for 5 more days. We tried oral macrobid but due to your refusal to take oral medications, we changed it to IV. Continue flomax. Aggressive bladder training and voiding trial as indicated in the next few days. Continue protonix twice daily and repeat EGD in 2-3 months to look for healing of the esophageal ulcer, if the patient wants. Pending Studies at Discharge: No Stand-Alone Forms: [employer], Smoking Cessation Skilled Items Patient informed of condition?: Yes DNR: No Discharge Level of Care: Acute rehab Communicable Disease: No Discharge Prognosis: Stable Lines: Peripheral IV Urinary Catheter: Yes Medications and DC Order Prescriptions: New polyethylene glycol 3350 [Miralax] 17 gram Powder In Packet 17 g PO DAILY Qty: 30 0RF tamsulosin 0.4 mg Capsule 0.4 mg PO HS Qty: 30 0RF Phospha 250 Neutral 250 mg Tablet 2 tab PO QID 1 Days Qty: 8 0RF ampicillin-sulbactam 3 gram recon soln 3 g IV Q6H 5 Days Continued amlodipine [Norvasc] 10 mg tablet 10 mg PO DAILY metoprolol succinate 50 mg tablet extended release 24 hr 50 mg PO BID lisinopril 10 mg tablet 10 mg PO DAILY Tums 300 mg (750 mg) Tablet,Chewable 300 mg PO QID glucosamine sulfate [Glucosamine] 750 mg Tablet 750 mg PO BID Changed pantoprazole [Protonix] 40 mg tablet,delayed release (DR/EC) 40 mg PO BID Qty: 60 0RF Discharge Orders: Discharge Order (Routine); Ordered 04/19/24 Ordered By: Terrence Mathew Admission Data Admit Date/Time: 04/09/24 19:53 Attending Provider: Terrence Mathew Admit Provider: Fish Rubio Primary Care Provider: Mumtaz Loza Other Providers: [facility]; Ned Read; Dimitris Haywood
== END 2024-04-19 12:23 | DRG 369 ==
LOC: ED 15:33 → SUATTDRO 19:53 → 2E 19:53 → 3N 04-14 17:43